=== PATIENT | female | born 1985 | race Caucasian/White ===

== ENCOUNTER → 2024-01-28 10:10 | Outpatient (REF) | payer OTHER, SELFPAY ==
[2024-01-28 11:26] LABS: Rubella Positive
[2024-01-28 11:49] LABS: Hepatitis B Surface Antibody Negative
[2024-01-30 15:24] LABS: Quantiferon Mitogen minus NIL 9.67 IU/mL; Quantiferon NIL 0.04 IU/mL; Quantiferon Plus TB2 minus NIL 0.01 IU/mL (0.00-0.34); Quantiferon TB Gold Plus Negative (Negative)
[2024-02-03 15:52] LABS: Mumps Virus IgG Positive; Rubeola (Measles) IgG Negative; Varicella Zoster IgG (VZV) Positive
== END ==
LOC: OHS 10:10
PROVIDERS: ATTENDING PHYSICIAN Nurse Practitioner Family
DX: Z23 Encounter for immunization (principal)
CPT/HCPCS: 36415; 86480; 86706; 86735; 86762; 86765; 86787

== ENCOUNTER 2024-06-30 11:41 | Observation (INO) | payer OTHER, SELFPAY ==
[2024-06-30] VITALS (12 sets, daily range): BP systolic 97–121; BP diastolic 45–85; BMI 23.4
--- NOTE | 2024-06-30 07:42 | ED.GENMED ---
History of Present Illness
<Genevieve Vera DO, Resident - Last Filed: 06/30/24 14:11>
General
Chief Complaint: Abdominal Pain
Source: patient
Exam Limitations: none
Time Seen by Provider: 06/30/24 07:24
History of Present Illness
History of Present Illness:
Ms. Rozina Tang is a 39 yo female w pmh HTN, pancreatitis, and GERD presenting with abdominal pain and vomiting. Has been vomiting since 06/25, unable to keep food or water down. Denies hematemesis. Abdominal pain is epigastric and central, a
sharp/stabbing 8/10 pain that radiates posteriorly to the back. Feels similar to pain from pancreatitis. Reports fever of 100.9 last night. +REDDY, +night sweats. -SOB, -cough, -chest pain, -palpitations, -constipation, -diarrhea.
Pt reports hiatal hernia on CT at another hospital, for a different type of pain.
Past History
<Gneevieve Vera DO, Resident - Last Filed: 06/30/24 14:11>
Past History
ED Past Medical History: GERD and Other (pancreatitis)
ED Past Surgical History: Gynecological and Other (back surgery, fissurectomyx2)
Patient has exhibited threatening behavior?: No
Review of Systems
<Genevieve Vera DO, Resident - Last Filed: 06/30/24 14:11>
Review of Systems
Allergies reviewed?: Yes
All Other Systems: ROS reviewed and negative except as documented in HPI and ROS
Skin: Denies rash
Psychiatric: Reports anxiety
Phy Exam
<Genevieve Vera DO, Resident - Last Filed: 06/30/24 14:11>
Physical Exam
Physical Exam:
.
General Physical Exam
General Presentation: moderate distress
General age: appears stated age
General Skin: warm and dry
General Habitus: normal
General Mental: alert
General Hydration: dry mucous membranes and poor skin turgor
Eye Exam
Eye Exam: conjunctiva normal
Cardiovascular Exam
Cardiovascular Exam: regular rate/rhythm, no edema, no gallop, no JVD and no murmur
Heart Sounds: normal
Pulmonary Exam
Pulmonary Exam: lungs clear, no rales, no rhonchi, no wheezing and no cough
Respiratory Effort: poor respiratory effort (limited by abdominal pain)
Oxygen Status: room air
Gastrointestinal Exam
Gastrointestinal Exam: no organomegaly, no cva tenderness, abnormal bowel sounds, guarding, no bruit and no masses
Auscultation of Abdomen: hypoactive
Neurological Exam
Neurological Exam: alert, oriented x3 and speech normal
Skin Exam
Skin Exam: normal color, warm/dry, no rash and no petechia
Psychiatric Exam
Psychiatric Exam: anxious
Course
<Genevieve Vera DO, Resident - Last Filed: 06/30/24 14:11>
Orders/Labs/Results
Orders:
Orders
06/30/24 07:19
C-Reactive Protein Urgent
Comment: ADD ON
CBC/With Diff [Complete Blood Count/With Diff] Urgent
CMP [Comprehensive Metabolic Panel] Urgent
HCG, Serum Qualitative Screen Urgent
Comment: HCG QUAL ADDED ON BY FLOOR 12:50PM 06-30-24
Lipase Urgent
Magnesium Urgent
Comment: ADD ON
Urinalysis Reflex To Culture Urgent
Date Specimen was Collected: 06/30/24
Time Specimen was Collected: 07:19
Urine Drug Abuse Screen Urgent
Date Specimen was Collected: 06/30/24
Time Specimen was Collected: 07:19
06/30/24 07:36
0.9% Sodium Chloride 1000 ml [Nss] 1,000 ml IV BOLUS
Metoclopramide [Reglan] 10 mg IV NOW STA
06/30/24 08:00
Morphine Sulfate 4 mg IV NOW STA
06/30/24 08:12
Diphenhydramine [Benadryl] 25 mg IV NOW STA
Diphenhydramine [Benadryl] 50 mg .ROUTE .STK-MED ONE
06/30/24 08:41
CT Abd/pelvis W Iv Cont Urgent
Comment:
Reason For Exam: general abd pain, vomiting
06/30/24 10:42
0.9% Sodium Chloride 1000 ml [Nss] 1,000 ml IV BOLUS
Metoclopramide [Reglan] 10 mg IV NOW STA
06/30/24 10:44
Fentanyl Citrate/Pf [Sublimaze] 50 mcg IV NOW STA
06/30/24 10:45
Pantoprazole [Protonix IV] 40 mg IV NOW STA
06/30/24 11:14
GASTROINTESTINAL CONSULT Routine
Consulting Provider: Johanny Caldwell
Was physician already notified: Yes
06/30/24 11:15
Add On- LAB Routine
Tests Added?: Mag level
Potassium Chloride [KCl] 40 meq 0.9% Sodium Chloride 250 ml [Nss] 250 ml IV NOW
06/30/24 11:24
Add On- LAB Routine
Tests Added?: CRP
06/30/24 11:30
Add On- LAB Urgent
Tests Added?: urine drug abuse screen
06/30/24 11:34
Admit/Transfer Patient As Directed
Co-Sign Provider:
Level of Care: Observation services
Assign to:: Telemetry
Physician / Group: Benji/hospitalist
Diagnosis: epigastric pain
Reason for Telemetry: Arrhythmia
Date to Stop Telemetry: 07/03/24
Time to Stop Telemetry: 11:00
Reason for Hospitalization: epigastric pain
PRN Pain Medication Management As Directed
May give lesser potent ordered pain med per pt: Yes
preference::
Protocol:: Medication orders for pain may be administered in a
manner that supports deferring to patient preference
when the pt is:
- Requesting an ordered lesser potent pain medication.
Least to most potent pain medications are defined
as: acetaminophen < NSAID < tramadol < opioids
(morphine, oxycodone, hydromorphone).
- Requesting a lesser dose of the same medication IF
ORDERED.
- Requesting a less intrusive route of administration
if both routes are prescribed by the provider (PO <
IV).
06/30/24 11:35
Code Status As Directed
Resuscitation Status: Full Code
07/03/24 11:00
DC Protocol for Telemetry ONCE
Abnormal Lab Results
06/30/24
07:19
Hct 35.9 L %
(37.0-47.0)
MPV 13.8 H fL
(7.4-10.4)
Lymphocytes % 19.9 L %
(20.5-51.1)
Potassium 3.2 L mmol/L
(3.5-5.1)
Chloride 96 L mmol/L
(98-107)
Carbon Dioxide 20 L mmol/L
(22-30)
Creatinine 0.5 L mg/dL
(0.6-1.0)
Urine Ketones 3+ A
(Negative)
U Marijuana (THC) Screen Positive H
(Negative)
06/30/24 07:19
06/30/24 07:19
Vital Signs
Initial and Last Documented VS:
Initial Vital Signs
Temp Pulse Resp BP Pulse Ox
100 F 108 16 110/73 98
06/30/24 06:48 06/30/24 06:48 06/30/24 06:48 06/30/24 06:48 06/30/24 06:48
Last Documented Vital Signs
Temp Pulse Resp BP Pulse Ox
100 F 86 16 113/75 94
06/30/24 06:48 06/30/24 11:45 06/30/24 06:48 06/30/24 12:00 06/30/24 12:15
<Jacob Brewster, DO - Last Filed: 06/30/24 08:14>
Orders/Labs/Results
Orders:
Orders
06/30/24 07:19
C-Reactive Protein Urgent
Comment: ADD ON
CBC/With Diff [Complete Blood Count/With Diff] Urgent
CMP [Comprehensive Metabolic Panel] Urgent
HCG, Serum Qualitative Screen Urgent
Comment: HCG QUAL ADDED ON BY FLOOR 12:50PM 06-30-24
Lipase Urgent
Magnesium Urgent
Comment: ADD ON
Urinalysis Reflex To Culture Urgent
Date Specimen was Collected: 06/30/24
Time Specimen was Collected: 07:19
Urine Drug Abuse Screen Urgent
Date Specimen was Collected: 06/30/24
Time Specimen was Collected: 07:19
06/30/24 07:36
0.9% Sodium Chloride 1000 ml [Nss] 1,000 ml IV BOLUS
Metoclopramide [Reglan] 10 mg IV NOW STA
06/30/24 08:00
Morphine Sulfate 4 mg IV NOW STA
06/30/24 08:12
Diphenhydramine [Benadryl] 25 mg IV NOW STA
Diphenhydramine [Benadryl] 50 mg .ROUTE .STK-MED ONE
06/30/24 08:41
CT Abd/pelvis W Iv Cont Urgent
Comment:
Reason For Exam: general abd pain, vomiting
06/30/24 10:42
0.9% Sodium Chloride 1000 ml [Nss] 1,000 ml IV BOLUS
Metoclopramide [Reglan] 10 mg IV NOW STA
06/30/24 10:44
Fentanyl Citrate/Pf [Sublimaze] 50 mcg IV NOW STA
06/30/24 10:45
Pantoprazole [Protonix IV] 40 mg IV NOW STA
06/30/24 11:14
GASTROINTESTINAL CONSULT Routine
Consulting Provider: Johanny Caldwell
Was physician already notified: Yes
06/30/24 11:15
Add On- LAB Routine
Tests Added?: Mag level
Potassium Chloride [KCl] 40 meq 0.9% Sodium Chloride 250 ml [Nss] 250 ml IV NOW
06/30/24 11:24
Add On- LAB Routine
Tests Added?: CRP
06/30/24 11:30
Add On- LAB Urgent
Tests Added?: urine drug abuse screen
06/30/24 11:34
Admit/Transfer Patient As Directed
Co-Sign Provider:
Level of Care: Observation services
Assign to:: Telemetry
Physician / Group: Benji/hospitalist
Diagnosis: epigastric pain
Reason for Telemetry: Arrhythmia
Date to Stop Telemetry: 07/03/24
Time to Stop Telemetry: 11:00
Reason for Hospitalization: epigastric pain
PRN Pain Medication Management As Directed
May give lesser potent ordered pain med per pt: Yes
preference::
Protocol:: Medication orders for pain may be administered in a
manner that supports deferring to patient preference
when the pt is:
- Requesting an ordered lesser potent pain medication.
Least to most potent pain medications are defined
as: acetaminophen < NSAID < tramadol < opioids
(morphine, oxycodone, hydromorphone).
- Requesting a lesser dose of the same medication IF
ORDERED.
- Requesting a less intrusive route of administration
if both routes are prescribed by the provider (PO <
IV).
06/30/24 11:35
Code Status As Directed
Resuscitation Status: Full Code
07/03/24 11:00
DC Protocol for Telemetry ONCE
Abnormal Lab Results
06/30/24
07:19
Hct 35.9 L %
(37.0-47.0)
MPV 13.8 H fL
(7.4-10.4)
Lymphocytes % 19.9 L %
(20.5-51.1)
Potassium 3.2 L mmol/L
(3.5-5.1)
Chloride 96 L mmol/L
(98-107)
Carbon Dioxide 20 L mmol/L
(22-30)
Creatinine 0.5 L mg/dL
(0.6-1.0)
Urine Ketones 3+ A
(Negative)
U Marijuana (THC) Screen Positive H
(Negative)
06/30/24 07:19
06/30/24 07:19
Vital Signs
Initial and Last Documented VS:
Initial Vital Signs
Temp Pulse Resp BP Pulse Ox
100 F 108 16 110/73 98
06/30/24 06:48 06/30/24 06:48 06/30/24 06:48 06/30/24 06:48 06/30/24 06:48
Last Documented Vital Signs
Temp Pulse Resp BP Pulse Ox
100 F 86 16 113/75 94
06/30/24 06:48 06/30/24 11:45 06/30/24 06:48 06/30/24 12:00 06/30/24 12:15
<Genevieve Vera DO, Resident - Last Filed: 06/30/24 14:11>
MDM/Problems Addressed
Differential Diagnosis Includes:
acute pancreatitis, cholecystitis, hepatitis A
MDM/Problems Addressed:
Acute pancreatitis unlikely due to normal lipase (37 U/L) and no acute pathologies on CT abdomen.
Cholecystitis unlikely due to no jaundice and no acute pathologies on CT abdomen.
Hepatitis A unlikely due to normal WBC (5.9x10^3 uL) and no diarrhea.
Chronic conditions affecting care: Previous abdomnial surgery (hysterectomy) and Psychiatric illness
Acute Exacerbation and/or Progression of Chronic Illness: Previous abdomnial surgery and Psychiatric illness
<Genevieve Vera DO, Resident - Last Filed: 06/30/24 14:11>
*Radiology
Radiology exam reviewed: preliminary read by ED provider and radiology read reviewed
*Pulse Oximetry
Patient hypoxic: no
*Critical Care Note
Total Time (30-74mins, 75-104mins- exclusive of procedures): Not Applicable
ED Attending Note
<Genevieve Vera DO, Resident - Last Filed: 06/30/24 14:11>
-
Portions of this chart may have been created with voice recognition software.� Occasional wrong word or��sound alike� substitutions may have occurred due to the inherent limitations of voice recognition software.
<Jacob Brewster DO - Last Filed: 06/30/24 08:14>
ED Attending Note
Patient seen and examined by attending physician: Yes
I performed a history and physical exam of patient and discussed management with resident, I reviewed resident's note and agree with documented findings and plan of care.: Yes
ED Attending Note:
I have seen and evaluated the patient with a [id number] encounter. I have spoken to the resident and involved in the medical history, the physical exam, medical decision making.
Evaluation and management service: agree unless noted differently below.
Results interpretation: agree unless noted differently below.
Focused HPI: 39-year-old female presenting with uncontrolled nausea and vomiting. This is associated with upper abdominal pain. Patient states she has had pain like this before and had a CT at an outside hospital. Patient states it was consistent
with a hiatal hernia. However, her pain today is different. She believes it could be related to pancreatitis
Physical exam: Uncomfortable, nausea, dry heaving, epigastric tenderness without rebound. Dry mucous membranes
Medical Decision Making: Given her ongoing issues, will give fluids, Reglan and morphine. Will obtain basic blood work looking for evidence of metabolic abnormalities and possibly pancreatitis. If blood work does not confirm pancreatitis, will
obtain imaging
Discharge Plan
Departure
Patient Disposition: Admit
Date of Disposition: 06/30/24
Time of Disposition: 11:12
Presentation/result/management discussed w/ accepting MD/DO: Hospitalist
Patient with high blood pressure during this ER visit?: No
Condition: Fair
Discharge Problem:
Esophagitis with gastritis, Gastroenteritis, Vomiting
Interventions
Interventions:
*Risk Screen - Suicide Last Done: 06/30/24 06:48
*General Assessment Last Done: 06/30/24 06:48
*Neglect/Abuse Screening Last Done: 06/30/24 06:48
IW-Jjkfvw-Liuvnjfmiy Assessment Last Done: 06/30/24 08:28
[2024-06-30] MEDS: NSS 1000 IV ×3 (08:15→16:56)
[2024-06-30] MEDS: MORPHINE SULFATE 4 MG IV (08:16)
[2024-06-30] MEDS: REGLAN 10 MG IV ×2 (08:17→10:59)
[2024-06-30] MEDS: BENADRYL 25 MG IV (08:18)
[2024-06-30 08:28] LABS: Urine Albumin Trace (Neg - Trace); Urine Bilirubin Negative (Negative); Urine Character Clear (Clear); Urine Color Yellow; Urine Glucose Negative (Negative); Urine Ketone 3+ (Negative); Urine Leukocyte Negative (Negative); Urine Nitrite Negative (Negative); Urine Occult Blood Negative (Negative); Urine Urobilinogen Negative (Neg - 1+)
[2024-06-30 08:35] LABS: % Basophils 0.9 % (0-2); % Eosinophils 0.2 % (0-6); % Immature Granulocytes 0.3 % (0-0.5); % Lymphocytes 19.9 % (20.5-51.1); % Monocytes 6.1 % (1.7-9.3); % Neutrophils 72.6 % (42.2-75.2); Absolute Basophils 0.1 10^3/uL (0-0.2); Absolute Lymphocytes 1.2 10^3/uL (1.2-3.4); Absolute Monocytes 0.4 10^3/uL (0.1-0.6); Absolute Neutrophils 4.3 10^3/uL (1.4-6.5); Hematocrit 35.9 % (37.0-47.0); Hemoglobin 12.9 g/dL (12.0-16.0); Mean Corp Hgb Conc. 35.9 g/dL (33.0-37.0); Mean Corpuscular Hgb 30.1 pg (27.0-31.0); Mean Corpuscular Volume 83.9 fL (81.0-99.0); Mean Platelet Volume 13.8 fL (7.4-10.4); Nucleated Red Blood Cells % 0 %; Platelet Count 257 10^3/uL (130-400); Red Blood Cell Count 4.28 10^6/uL (4.20-5.40); Red Cell Dist. Width 13.4 % (11.5-14.5); White Blood Cell Count 5.9 10^3/uL (4.8-10.8)
[2024-06-30 08:37] LABS: ALT (SGPT) 13 U/L (0-35); AST (SGOT) 21 U/L (14-36); Albumin 4.3 g/dl (3.5-5.0); Alkaline Phosphatase 58 U/L (38-126); Blood Urea Nitrogen 11 mg/dl (7-17); Calcium 9.2 mg/dl (8.4-10.2); Carbon Dioxide 20 mmol/L (22-30); Chloride 96 mmol/L (98-107); Glucose 82 mg/dl (70-99); Lipase 37 U/L (23-300); Potassium 3.2 mmol/L (3.5-5.1); Sodium 137 mmol/L (135-145); Total Bilirubin 0.7 mg/dl (0.2-1.3); Total Protein 6.6 g/dl (6.3-8.2); eGFR > 60.00
[2024-06-30] MEDS: SUBLIMAZE 50 MCG IV (10:59)
[2024-06-30] MEDS: PROTONIX IV 40 MG IV ×2 (10:59→20:01)
--- NOTE | 2024-06-30 11:15 | HPS.HSE ---
Family Physician
-
Family Physician: * NONE
Chief Complaint
-
epigastric abd pain
History of Present Illness
HPI: 39 yo female with PMH HTN, pancreatitis, GERD, Anxiety/depression; p/w epigastric abdominal pain and vomiting since 06/25.
She is unable to keep food or water down. Abdominal pain is epigastric/central, sharp/stabbing and radiates posteriorly to the back. She states it felt similar to previous pancreatitis.
Reported fever of 100.9 the night prior.
Denies to other symptoms.
Medical History
Past Medical History
Past Medical History: Reports Other (GERD, pancreatitis, anxiety/depression, back pain)
Past Surgical History: Reports Other
Additional Past Surgical History:
back surgery
Social History
Tobacco: Smoker (1-2 cigarettes a day)
Alcohol: None
Drug: None
Personal: Partner
Family History
Family History: Not pertinent
Allergies / Home Medications
Allergies reflects when Allergies were last updated in [facility].
Home Medications with original date entered in [facility]
Allergy/Medication List:
Medications on admission are unable to be verified or confirmed at this time.
Review of Systems
-
Abdomen/GI: Reports See HPI, Abdominal Pain, Nausea and Vomiting
Physical Exam
Vital Signs
Vital Signs
Temp Pulse Resp BP Pulse Ox
37.7 C 108 16 110/73 98
06/30/24 06:48 06/30/24 06:48 06/30/24 06:48 06/30/24 06:48 06/30/24 06:48
Physical Exam
General: Well Developed, Well Nourished, No Apparent Distress and Conversant
HEENT: NormoCephalic, Moist mucous membranes and Atraumatic
Respiratory: Clear and Non Labored Respirations; No Accessory Resp Muscle Use
Cardiac: S1/S2 and Regular Rhythm; No Murmur or Rub
GI: Soft, Non Distended, Normal Bowel Sounds and Tender (epigastrium)
Rectal: Deferred by Provider
Musculoskeletal: No Clubbing, No Cyanosis and No Edema
Skin: No Rash
Neuro: Awake and Alert
Psych: Calm and Intact Judgment/Insight
Laboratory Results
-
06/30/24 07:19
06/30/24 07:19
Laboratory Results
Total Bilirubin 0.7 mg/dl (0.2-1.3) 06/30/24 07:19
AST 21 U/L (14-36) 06/30/24 07:19
ALT 13 U/L (0-35) 06/30/24 07:19
Alkaline Phosphatase 58 U/L (38-126) 06/30/24 07:19
Lipase 37 U/L (23-300) 06/30/24 07:19
Data Reviewed
-
CT Scan: Report Reviewed by me
Lab Data: Labs Reviewed by me
Impression/Plan
-
HPI: 39 yo female with PMH HTN, pancreatitis, GERD, Anxiety/depression; p/w epigastric abdominal pain and vomiting since 06/25.
She is unable to keep food or water down. Abdominal pain is epigastric/central, sharp/stabbing and radiates posteriorly to the back. She states it felt similar to previous pancreatitis.
Reported fever of 100.9 the night prior.
Denies to other symptoms.
CT AP:
Acute gastroenteritis. No focal fluid collection or free air.
Acute esophagitis from vomiting.
Punctate 1 mm nonobstructing calculus in the lower pole of the left kidney. No hydronephrosis.
A/P:
# Epigastric abdominal pain
CT noted Acute esophagitis from vomiting.
substitute [employer] PO PPI to IV BID
Check UDS
Check CRP
GI CS
# Hypokalemia
replete IV
# GERD
PPI as above
# Anxiety and depression
Continue [employer] fluoxetine, Depakote
# ADHD
# Chronic pain
# Smoker-1 to 2 cigarettes a day-cessation counseling
Full code
DVT prophylaxis- Lovenox
--- NOTE | 2024-06-30 11:45 | CON.GI ---
Addendum entered and electronically signed by Johanny Caldwell DO 06/30/24 13:28:
I saw and examined the patient.
The FISH GRADER or PA's note was reviewed and I agree with the note.
Comment:
Rozina is a 39 y.o. female w/ pmhx pancreatitis, HTN, GERD, anxiety/depression, history of etoh abuse admitted with intractable nausea/vomiting x5 days, unable to tolerate PO. Reports she has been sober for the last year. She states she recently
prolonged hospitalization at [facility] for pancreatitis, she reports there was no clear etiology. She also reports some abnormal finding with the appendix recommended for surgery, however, has attempted to call surgery at [place] for
follow-up and has not heard back from them. CT scan shows that the appendix appears normal. There is mild wall thickening and hyperenhancement of the stomach in addition to numerous fluid filled small bowel loops with mild wall thickening,
consistent with acute gastroenteritis. Acute esophagitis, likely secondary to persistent retching.
Recommendations:
-IVF
-r/o norovirus if develops diarrhea
-standing zofran
-check bhcg
-f/u UDS
-check EtoH level
-ADAT
-obtain records from [facility]
-if no improvement, obtain abdominal xray in AM
Management of gastroenteritis is supportive care. GI will sign off, please call with questions.
Original Note:
Consultation
-
Date/Time Consultation Requested: 06/30/24 1115
Date/Time Consultation Performed: 06/30/24 1145
Requesting Provider: Karen Leblanc MD
Performing Provider: YUE Fuentes
Reason for Consultation: esophagitis/nausea/vomiting
Medical History
Chief Complaint / HPI
Chief Complaint: abdominal pain, vomiting
History of Present Illness:
Pt is a 39yo with hx GERD, HTN, prior pancreatitis with hx heavy ETOH use, back surgery, fissurectomy x2 with admission with upper abdominal pain and vomiting. On admission noted with hypotension with K 3.2, with normal LFT's and lipase. Ct
notable for acute gastroenteritis no focal fluid collection or free air and acute esophagitis from vomiting, 1 mm calculus in renal stone.
In reviewing with patient she admits to hx symptoms for several weeks. About 1 month ago she was hospitalized at [facility] for pancreatitis. She states etiology was unclear. Last ETOH heavy 1 year ago. Did not recall gallstones but there
was concern for appendix issue and was due for follow up for surgery for appe but has not scheduled. She currently admits to GERD with vomiting and upper abdominal pain but denies hematemesis, diarhea, constipation, or rectal bleeding. Hx prior
EGD years ago for GERD and colonoscopy for rectal bleeding that pt recalls as normal. She denies NSAID use but does admits to occasional Marijuana use last 2 weeks ago.
Past Medical History
Past Medical History: GERD, HTN, Psychiatric (anxiety/depression) and Other (pancreatitis)
Past Surgical History: Other (back surgery, fissurectomy x2 )
Social History
Tobacco: Smoker
Alcohol: Former
Drug: Marijuana (occasional use )
Living: Alone
Employment: Employed
Family History
Family History: Other (no family hx colon CA or polyps, no family hx GI issues )
Allergies / Home Medications
Allergy/AdvReac Type Severity Reaction Status Date / Time
latex Allergy Rash Verified 06/30/24 06:47
ondansetron [From Zofran] Allergy Unknown Verified 06/30/24 07:43
tramadol Allergy Unknown Verified 06/30/24 06:47
�Medication �Instructions �Recorded
divalproex 500 mg tablet,extended 500 mg PO BID Neurological 08/03/23
release 24 hr (Depakote ER) Condition
fluoxetine 40 mg capsule 40 mg PO DAILY Mental 08/03/23
Health/Anxiety
melatonin 10 mg tablet 10 mg PO HSPRN PRN insomnia 08/03/23
pantoprazole 40 mg tablet,delayed 40 mg PO DAILY heartburn 08/03/23
release
methylphenidate HCl 10 mg tablet 10 mg PO DAILY@1500 06/30/24
methylphenidate HCl 54 mg 54 mg PO DAILY 06/30/24
tablet,extended release 24 hr
olanzapine 5 mg tablet 5 mg PO DAILYPRN PRN anxiety 06/30/24
Review of Systems
-
Unable to obtain full review of systems at this time due to: Other (some drifting off in conversation)
History Source: Patient
Constitutional: Reports Fever
EENT: Reports No Symptoms
Respiratory: Reports No Symptoms
Cardiac: Reports No Symptoms
Abdomen/GI: Reports Abdominal Pain, Nausea and Vomiting
: Reports No Symptoms
Musculoskeletal: Reports No Symptoms
Skin: Reports No Symptoms
Neurological: Reports Weakness
Endocrine: Reports No Symptoms
Hematologic/Lymphatic: Reports No Symptoms
Vital Signs
Temp Pulse Resp BP Pulse Ox
100 F 108 16 110/73 98
06/30/24 06:48 06/30/24 06:48 06/30/24 06:48 06/30/24 06:48 06/30/24 06:48
Physical Exam
Exam
General: Well Developed, Well Nourished and No Apparent Distress
HEENT: Normocephalic and Anicteric
Respiratory: Clear
Cardiac: Regular Rhythm
GI: Soft, Tender (diffuse upper tenderness ) and Distended (limited exam as pt lying on side with symptoms )
Genito-urinary: No Costovertebral Tender
Musculoskeletal: No Clubbing and No Cyanosis
Skin: Warm and Dry
Neuro: Awake, Alert and AO x 3
Psych: Calm
Results
WBC 5.9 10^3/uL (4.8-10.8) 06/30/24 07:19
Hgb 12.9 g/dL (12.0-16.0) 06/30/24 07:19
Hct 35.9 % (37.0-47.0) L 06/30/24 07:19
MCV 83.9 fL (81.0-99.0) 06/30/24 07:19
Plt Count 257 10^3/uL (130-400) 06/30/24 07:19
Absolute Neuts (auto) 4.3 10^3/uL (1.4-6.5) 06/30/24 07:19
Sodium 137 mmol/L (135-145) 06/30/24 07:19
Potassium 3.2 mmol/L (3.5-5.1) L 06/30/24 07:19
Chloride 96 mmol/L (98-107) L 06/30/24 07:19
Carbon Dioxide 20 mmol/L (22-30) L 06/30/24 07:19
BUN 11 mg/dl (7-17) 06/30/24 07:19
Creatinine 0.5 mg/dL (0.6-1.0) L 06/30/24 07:19
Calcium 9.2 mg/dl (8.4-10.2) 06/30/24 07:19
Total Bilirubin 0.7 mg/dl (0.2-1.3) 06/30/24 07:19
AST 21 U/L (14-36) 06/30/24 07:19
ALT 13 U/L (0-35) 06/30/24 07:19
Alkaline Phosphatase 58 U/L (38-126) 06/30/24 07:19
Lipase 37 U/L (23-300) 06/30/24 07:19
Diagnostic Image Results:
Prior GI Procedures:
EGD: in past for GERD
Colonoscopy: in past for bleed recall normal
Assessment / Plan
-
Pt is a 39yo with hx GERD, HTN, prior pancreatitis with hx heavy ETOH use, back surgery, fissurectomy x2 with admission with upper abdominal pain and vomiting. On admission noted with hypotension with K 3.2, with normal LFT's and lipase. Ct
notable for acute gastroenteritis no focal fluid collection or free air and acute esophagitis from vomiting, 1 mm calculus in renal stone. In reviewing with patient she admits to hx symptoms for several weeks. About 1 month ago she was
hospitalized at [place] for pancreatitis. She states etiology was unclear. Last ETOH heavy 1 year ago.
-nausea/vomiting with concern for gastroenteritis
-acute esophagitis on imaging
-hypokalemia
-recent [place] admission with pancreatitis and abnormal appendix on imaging
other medical problems:
-hx pancreatitis
-prior heavy ETOH use
-hx back surgery
-fissurectomy
PLAN:
etiology of gastroenteritis related to acute viral illness vs ileus with hx recent pancreatitis vs other-- less likely Cannibis induced with last use 2 weeks ago
cont supportive care
will obtain [facility] records with ? 'appendix issues'
antiemetics/pain control
IVF
if not improving repeat abd X ray in AM
if diarrhea develops check stools studies and norovirus
-
-
Thank you for consultation and allowing me to participate in the patient's care. Please call the special education director GI physician during the after hours with any questions or concerns.
--- NOTE | 2024-06-30 11:51 | PHANOTE ---
med rec note- patient stated she moved here from [place] and was getting her medication through a md there. unable to confirm her controlled medications with ecw, pharmacy or ecw. patient also stated to the pharmacist her ritalin ER 36mg in AM and
10mg IR at 3pm but told me her am dose was 54mg.
--- NOTE | 2024-06-30 11:57 | PHANOTE ---
Met with patient to verify methylphenidate doses/frequency as it could not be verified through a pharmacy fill or the PDMP. Patient stated that she recently moved from [place] and continues to fill her methylphenidate from her [place] physician at
a [facility]. Patient stated that she has an appointment with a PA provider in October to initiate care.
[2024-06-30 12:01] LABS: Amphetamines Negative (Negative); Barbiturates Negative (Negative); Benzodiazepines Negative (Negative); Buprenorphine Negative (Negative); Cocaine Negative (Negative); Marijuana Positive (Negative); Methadone Negative (Negative); Methamphetamines Negative (Negative); Opiates Negative (Negative); Phencyclidine Negative (Negative); Tricyclic Antidepressants Negative (Negative)
[2024-06-30 12:02] LABS: C-Reactive Protein < 5.00 mg/L (0.0-10.00)
[2024-06-30 12:13] LABS: Magnesium 1.7 mg/dl (1.6-2.3)
[2024-06-30] MEDS: KCL 270 MEQ IV (12:38)
[2024-06-30 13:11] LABS: Alcohol None Detected
[2024-06-30 14:16] LABS: HCG, Serum Qualitative Screen Negative
[2024-06-30] MEDS: TIGAN 200 MG IM (18:26)
[2024-06-30] MEDS: MORPHINE SULFATE 2 MG IV ×2 (18:30→22:54)
--- NOTE | 2024-06-30 19:23 | PTCARENOTE ---
Received patient AAOX3 from ED. Pt oriented to room. Pt NPO. IVF started. Made patient comfortable. Cont to assess patient status.
[2024-06-30] MEDS: LOVENOX 40 MG SC (20:00)
[2024-06-30] MEDS: NSS (PRESERVATIVE FREE) 10 ML IV (20:01)
[2024-06-30] MEDS: DEPAKOTE ER (24 HR RELEASE) 500 MG PO (20:03)
[2024-07-01] MEDS: NSS 1000 IV ×3 (01:23→20:04)
[2024-07-01 03:26] VITALS: BP 100/67
[2024-07-01] MEDS: MORPHINE SULFATE 2 MG IV ×4 (04:12→18:24)
[2024-07-01 05:57] LABS: Hematocrit 33.5 % (37.0-47.0); Hemoglobin 11.7 g/dL (12.0-16.0); Mean Corp Hgb Conc. 34.9 g/dL (33.0-37.0); Mean Corpuscular Hgb 29.9 pg (27.0-31.0); Mean Corpuscular Volume 85.7 fL (81.0-99.0); Mean Platelet Volume 13.5 fL (7.4-10.4); Platelet Count 177 10^3/uL (130-400); Red Blood Cell Count 3.91 10^6/uL (4.20-5.40); Red Cell Dist. Width 13.9 % (11.5-14.5); White Blood Cell Count 4.7 10^3/uL (4.8-10.8)
[2024-07-01 05:59] LABS: Blood Urea Nitrogen 5 mg/dl (7-17); Calcium 8.6 mg/dl (8.4-10.2); Carbon Dioxide 17 mmol/L (22-30); Chloride 106 mmol/L (98-107); Estimated Creatinine Clearance 124 ml/min; Glucose 58 mg/dl (70-99); Magnesium 1.8 mg/dl (1.6-2.3); Potassium 3.4 mmol/L (3.5-5.1); Sodium 141 mmol/L (135-145); eGFR > 60.00
[2024-07-01 08:14] VITALS: BP 117/68
[2024-07-01] MEDS: TIGAN 200 MG IM (08:24)
[2024-07-01] MEDS: KCL 270 MEQ IV (08:28)
[2024-07-01] MEDS: DEPAKOTE ER (24 HR RELEASE) 500 MG PO ×2 (08:29→20:04)
[2024-07-01] MEDS: NSS (PRESERVATIVE FREE) 10 ML IV ×2 (08:29→20:05)
[2024-07-01] MEDS: PROZAC 40 MG PO (08:29)
[2024-07-01] MEDS: PROTONIX IV 40 MG IV ×2 (08:29→20:05)
--- NOTE | 2024-07-01 08:30 | W.PN.HOSP.TC ---
Today's Communication/Plan
-
see A/P
Assessment / Plan
Assessment / Plan
HPI: 39 yo female with PMH HTN, pancreatitis, GERD, Anxiety/depression; p/w epigastric abdominal pain and vomiting since 06/25.
She is unable to keep food or water down. Abdominal pain is epigastric/central, sharp/stabbing and radiates posteriorly to the back. She states it felt similar to previous pancreatitis.
Reported fever of 100.9 the night prior.
Denies to other symptoms.
CT AP:
Acute gastroenteritis. No focal fluid collection or free air.
Acute esophagitis from vomiting.
Punctate 1 mm nonobstructing calculus in the lower pole of the left kidney. No hydronephrosis.
A/P:
# Epigastric abdominal pain
CT noted Acute gastroenteritis, and Acute esophagitis from vomiting.
substitute [employer] PO PPI to IV BID
UDS positive for marijuana, alcohol level negative
CRP negative which r/o acute infectious/inflammatory causes
pain control with IV morphine, Tylenol
Cont NPO with IVF
Maalox PRN per pt request
appreciate GI input
# Hypokalemia
replete IV
# GERD
PPI as above
# Anxiety and depression
Continue [employer] fluoxetine, Depakote
# ADHD
# Chronic pain
# Smoker-1 to 2 cigarettes a day-cessation counseling
Full code
DVT prophylaxis- Lovenox
Anticipated Discharge: 24 - 48 hours
Subjective/Interval History
-
Date of Service: July 01, 2024
Objective Data
-
Labs:
Laboratory Results
07/01/24
04:36
WBC 4.7 L
Hgb 11.7 L
Hct 33.5 L
Plt Count 177 D
Sodium 141
Potassium 3.4 L
Chloride 106
Carbon Dioxide 17 L
BUN 5 L
Creatinine 0.5 L
Glucose 58 L
Calcium 8.6
Vital Signs:
Vital Signs
Temp Pulse Resp BP Pulse Ox
36.7 C 80 18 117/68 96
07/01/24 08:14 07/01/24 08:14 07/01/24 08:14 07/01/24 08:14 07/01/24 08:14
I&O
06/30/24 07/01/24 07/02/24
06:59 06:59 06:59
Intake Total 1200 / 1200
Balance 1200 / 1200
Review of Systems
-
Abdomen/GI: Reports Abdominal Pain (epigastrium)
Physical Exam
-
General: Well Developed, Well Nourished, No Apparent Distress, Comfortable and Conversant; Negative Respiratory Distress
HEENT: Normocephalic, Atraumatic, Nose Appears Normal and Ears Appear Normal; Negative Oxygen
Respiratory: Clear to Auscultation and Non Labored Respirations; Negative Accessory Resp Muscle Use
Cardiac: Regular Rhythm and S1/S2
GI: Soft, Nondistended and Tender (epigastrium)
Skin: Warm and Dry
Neuro: Awake, Alert, Oriented, AO x 3 and Nonfocal/Grossly Intact
Psych: Calm and Intact Judgement/Insight
Data Reviewed
-
CT Scan: Report Reviewed by me
Labs: Labs Reviewed by me
[2024-07-01 12:02] VITALS: BP 101/67
[2024-07-01] MEDS: MAALOX 30 ML PO ×2 (14:04→20:05)
[2024-07-01 15:00] VITALS: BP 95/49
[2024-07-01] MEDS: LOVENOX 40 MG SC (17:01)
[2024-07-01 19:24] VITALS: BP 111/70
[2024-07-01] MEDS: ZYPREXA 5 MG PO (20:46)
[2024-07-01 23:49] VITALS: BP 101/64
[2024-07-02] MEDS: MORPHINE SULFATE 2 MG IV ×2 (00:16→08:11)
[2024-07-02 03:11] VITALS: BP 93/54
[2024-07-02] MEDS: TIGAN 200 MG IM (05:06)
[2024-07-02] MEDS: MAALOX 30 ML PO (05:09)
[2024-07-02] MEDS: CARAFATE 1 GRAM PO (05:25)
[2024-07-02] MEDS: NSS 1000 IV (05:26)
[2024-07-02 07:05] LABS: Hematocrit 32.6 % (37.0-47.0); Hemoglobin 11.2 g/dL (12.0-16.0); Mean Corp Hgb Conc. 34.4 g/dL (33.0-37.0); Mean Corpuscular Hgb 29.7 pg (27.0-31.0); Mean Corpuscular Volume 86.5 fL (81.0-99.0); Mean Platelet Volume 13.5 fL (7.4-10.4); Platelet Count 157 10^3/uL (130-400); Red Blood Cell Count 3.77 10^6/uL (4.20-5.40); White Blood Cell Count 3.8 10^3/uL (4.8-10.8)
[2024-07-02 07:26] LABS: Blood Urea Nitrogen < 2 mg/dl (7-17); Calcium 8.8 mg/dl (8.4-10.2); Carbon Dioxide 16 mmol/L (22-30); Chloride 108 mmol/L (98-107); Estimated Creatinine Clearance 124 ml/min; Glucose 62 mg/dl (70-99); Magnesium 1.7 mg/dl (1.6-2.3); Potassium 3.9 mmol/L (3.5-5.1); Sodium 140 mmol/L (135-145); eGFR > 60.00
[2024-07-02] MEDS: MAGNESIUM SULFATE 100 IV (07:47)
[2024-07-02] MEDS: DEPAKOTE ER (24 HR RELEASE) 500 MG PO (07:48)
[2024-07-02] MEDS: PROZAC 40 MG PO (07:48)
[2024-07-02 08:02] VITALS: BP 134/87
[2024-07-02] MEDS: NSS (PRESERVATIVE FREE) 10 ML IV (08:24)
[2024-07-02] MEDS: PROTONIX IV 40 MG IV (08:24)
--- NOTE | 2024-07-02 08:36 | W.PN.HOSP.TC ---
Addendum entered and electronically signed by Karen Leblanc MD 07/02/24 12:24:
Patient left AMA.
Discussed risk of AMA with patient.
Total DC time 40 minutes
Original Note:
Today's Communication/Plan
-
see A/P
Assessment / Plan
Assessment / Plan
HPI: 39 yo female with PMH HTN, pancreatitis, GERD, Anxiety/depression; p/w epigastric abdominal pain and vomiting since 06/25.
She is unable to keep food or water down. Abdominal pain is epigastric/central, sharp/stabbing and radiates posteriorly to the back. She states it felt similar to previous pancreatitis.
Reported fever of 100.9 the night prior.
Denies to other symptoms.
CT AP:
Acute gastroenteritis. No focal fluid collection or free air.
Acute esophagitis from vomiting.
Punctate 1 mm nonobstructing calculus in the lower pole of the left kidney. No hydronephrosis.
A/P:
# Epigastric abdominal pain
CT noted Acute gastroenteritis, and Acute esophagitis from vomiting.
substitute [employer] PO PPI to IV BID
UDS positive for marijuana, alcohol level negative
CRP negative which r/o acute infectious/inflammatory causes
pain control with IV morphine, Tylenol
trial of clears
trial of lidocaine cream to apply over anterior abdomen (in case symptom from cyclic vomiting from marijuana use)
Maalox PRN per pt request
appreciate GI input
# Hypokalemia
repleted IV
# GERD
PPI as above
# Anxiety and depression
Continue [employer] fluoxetine, Depakote
# ADHD
# Chronic pain
# Smoker-1 to 2 cigarettes a day-cessation counseling
Full code
DVT prophylaxis- Lovenox
DW RN
Anticipated Discharge: Within 24 hours
Subjective/Interval History
-
Date of Service: July 02, 2024
Objective Data
-
Labs:
Laboratory Results
07/02/24
06:06
WBC 3.8 L
Hgb 11.2 L
Hct 32.6 L
Plt Count 157
Sodium 140
Potassium 3.9
Chloride 108 H
Carbon Dioxide 16 L
BUN < 2 L
Creatinine 0.5 L
Glucose 62 L
Calcium 8.8
Vital Signs:
Vital Signs
Temp Pulse Resp BP Pulse Ox
36.7 C 95 16 134/87 100
07/02/24 08:02 07/02/24 08:02 07/02/24 08:02 07/02/24 08:02 07/02/24 08:02
I&O
07/01/24 07/02/24 07/03/24
06:59 06:59 06:59
Intake Total 1200 / 1200 3150 / 3150
Balance 1200 / 1200 3150 / 3150
Review of Systems
-
Abdomen/GI: Reports Abdominal Pain (epigastrium)
Physical Exam
-
General: Well Developed, Well Nourished, No Apparent Distress, Comfortable and Conversant; Negative Respiratory Distress
HEENT: Normocephalic, Atraumatic, Nose Appears Normal and Ears Appear Normal; Negative Oxygen
Respiratory: Clear to Auscultation and Non Labored Respirations; Negative Accessory Resp Muscle Use
Cardiac: Regular Rhythm and S1/S2
GI: Soft, Nondistended and Tender (epigastrium)
Skin: Warm and Dry
Neuro: Awake, Alert, Oriented, AO x 3 and Nonfocal/Grossly Intact
Psych: Calm and Intact Judgement/Insight
Data Reviewed
-
CT Scan: Report Reviewed by me
Labs: Labs Reviewed by me
[2024-07-02] MEDS: LMX 4 1 APPLIC TOPICAL (10:41)
--- NOTE | 2024-07-02 11:10 | CM ---
Addendum entered by Lisbeth Ortez 07/02/24 11:26:
PCP list provided to patient and OBS form provided, patient to review and complete, nursing aware.
Original Note:
Patient seen in hallway at her request. Patient for AMA per nursing and patient confirmed, due to her employer/ scheduling. Patient states that she lives with her landlord in a 2 story home but most of the home is on the first floor. Patient with no
DME. Patient with no interest in alcohol treatment resources, patient with no interest in advance directive information. Patient plan is for discharge home with friends to transport. Patient uses the [facility] in [place] and she would like to have a
list of PCP options as she recently moved here. CM will continue to follow for discharge planning needs.
Plan; AMA
[2024-07-02 11:11] VITALS: BP 107/64
--- NOTE | 2024-07-02 12:06 | W.DCSUMMARY ---
Discharge Summary
Discharge Data
Date of Admission: 06/30/24
Date of Discharge: 07/02/24
-
Pending Results: No
Hospital Course
Principal Diagnosis:
Epigastric abdominal pain, possibly due to acute gastroenteritis versus acute esophagitis from vomiting, versus cyclic vomiting disorder from marijuana use.
Chronic Diagnoses:�
GERD
Anxiety and depression, on fluoxetine, Depakote
ADHD
Chronic pain
Smoker-1 to 2 cigarettes a day-cessation counseling
Consultations:�
Gastroenterology
Procedures:�
None
Clinical course:�
This is a 39 yo female with past medical history as stated above, who presented with epigastric abdominal pain and inability to tolerate food or water.
Problem 1:
Epigastric abdominal pain.
The patient's CT abdomen pelvis noted acute gastroenteritis, and Acute esophagitis from vomiting.
Her UDS was positive for marijuana.
Her CRP was negative which ruled out acute infectious/inflammatory process.
She was treated symptomatically with IV morphine for pain control and Tigan for nausea.
Unfortunately she left AGAINST MEDICAL ADVICE prior to resolution of her symptoms.
Discharge Plan
-
Patient Disposition: Against Medical Advice
Referrals:
NONE,* [Family Provider] -
Prescriptions:
No Action
fluoxetine 40 mg Capsule
40 mg PO DAILY
pantoprazole 40 mg Tablet,Delayed Release (Dr/Ec)
40 mg PO DAILY
divalproex [Depakote ER] 500 mg Tablet Extended Release 24 Hr
500 mg PO BID
melatonin 10 mg Tablet
10 mg PO HSPRN PRN (Reason: insomnia)
olanzapine 5 mg Tablet
5 mg PO DAILYPRN PRN (Reason: anxiety)
methylphenidate HCl 36 mg Tablet Extended Release 24hr
36 mg PO DAILY
methylphenidate HCl 10 mg Tablet
10 mg PO DAILY@1500
Discharge Orders:
Discharge Patient (As Directed); Ordered 07/02/24
Ordered By: Karen Leblanc
Discharge Date and Time
Print Language: TELUGU
== END 2024-07-02 12:35 | disposition left against medical advice (07) ==
LOC: 4 EAST ACU 11:41
PROVIDERS: Nurse Practitioner Adult Health; ADMITTING PHYSICIAN Internal Medicine; CONSULT PHYSICIAN Internal Medicine; EMERGENCY PHYSICIAN Student in an Organized Health Care Education/Training Program
DX: R11.2 Nausea with vomiting, unspecified (principal); R10.13 Epigastric pain; K21.00 Gastro-esophageal reflux disease with esophagitis, without bleeding; F12.90 Cannabis use, unspecified, uncomplicated; F41.9 Anxiety disorder, unspecified; F32.A Depression, unspecified; R50.9 Fever, unspecified; R06.02 Shortness of breath; R51.9 Headache, unspecified; R07.9 Chest pain, unspecified; R05.9 Cough, unspecified; G89.29 Other chronic pain; R00.2 Palpitations; K44.9 Diaphragmatic hernia without obstruction or gangrene; K59.00 Constipation, unspecified; I10 Essential (primary) hypertension; K86.89 Other specified diseases of pancreas; R61 Generalized hyperhidrosis; F17.210 Nicotine dependence, cigarettes, uncomplicated; K76.0 Fatty (change of) liver, not elsewhere classified; R94.31 Abnormal electrocardiogram [ECG] [EKG]; E87.6 Hypokalemia; N20.0 Calculus of kidney; F90.9 Attention-deficit hyperactivity disorder, unspecified type; F10.10 Alcohol abuse, uncomplicated; I95.9 Hypotension, unspecified; Z88.5 Allergy status to narcotic agent; Z88.8 Allergy status to other drugs, medicaments and biological substances; Z91.040 Latex allergy status; Z87.19 Personal history of other diseases of the digestive system; Z53.29 Procedure and treatment not carried out because of patient's decision for other reasons
CPT/HCPCS: 74177; 80048; 80053; 80306; 81003; 82077; 83690; 83735; 84703; 85025; 85027; 86140; 93005; 96361; 96374; 96375; 96376; 99285; Q9967

== ENCOUNTER 2024-07-03 15:47 | Inpatient (IN) | payer OTHER, SELFPAY ==
[2024-07-03] VITALS (55 sets, daily range): BP systolic 57–206; BP diastolic 34–147; BMI 22.8
--- NOTE | 2024-07-03 13:49 | ED.GENMED ---
History of Present Illness
General
Chief Complaint: Abdominal Pain
Source: patient
Exam Limitations: none
Time Seen by Provider: 07/03/24 13:42
History of Present Illness
History of Present Illness:
See MDM
Past History
Past History
ED Past Medical History: GERD and Other (pancreatitis)
ED Past Surgical History: Gynecological and Other (back surgery, fissurectomyx2)
Patient has exhibited threatening behavior?: No
Social History
Tobacco: Non-smoker
Alcohol: None
Phy Exam
Physical Exam
Physical Exam:
See MDM
Course
Orders/Labs/Results
Orders:
Orders
07/03/24 13:37
Test Result ONCE
07/03/24 13:40
Complete Blood Count/With Diff Urgent
Comprehensive Metabolic Panel Urgent
HCG, Serum Qualitative Screen Urgent
Comment: Notify provider if positive test present
Lipase Urgent
07/03/24 13:43
EKG [Electrocardiogram (*1)] Urgent
Reason for Study: Abnormal EKG
EKG- Treatment ONCE
07/03/24 13:46
Calcium Gluconate 1 gram/100mL [Calcium Gluconate] 1 gram in 100 ml IV ONCE
Magnesium Sulfate 1 G/D5w [Magnesium Sulfate] 1 gm in 100 ml IV NOW
07/03/24 13:48
0.9% Sodium Chloride 1000 ml [Nss] 1,000 ml IV BOLUS
07/03/24 13:49
Morphine Sulfate 4 mg IV NOW STA
Trimethobenzamide [Tigan] 200 mg IM NOW STA
07/03/24 13:52
Sodium Bicarbonate 50 meq IV NOW STA
07/03/24 14:16
PTT Urgent
Prothrombin Time Urgent
Troponin I Urgent
07/03/24 14:22
Aspirin Chewable [Low Strength Aspirin] 324 mg PO NOW STA
07/03/24 14:25
Electrocardiogram (*1) Urgent
Reason for Study: Shortness of Breath
EKG- Treatment ONCE
Lorazepam [Ativan] 0.5 mg IV NOW STA
07/03/24 14:26
Echo 2D MMode Color/Doppler Urgent
Reason for Study: VF arrest
Cardiology Consult: Margarita Rhoades
07/03/24 14:31
Consult Cardiology [CARDIOLOGY CONSULT] Stat
Consulting Provider: Margarita Rhoades
Was physician already notified: Yes
Metoprolol [Lopressor] 5 mg IV NOW STA
07/03/24 14:52
Add On- LAB Routine
Tests Added?: mag
Admit/Transfer Patient As Directed
Co-Sign Provider:
Level of Care: Inpatient admission
Assign to:: ICU
Physician / Group: Hospitalist
Diagnosis: V Fib
Reason for Hospitalization: V Fib
Expected length of stay greater than two midnights?: Yes
ELOS- Estimated Length of Stay in days: 3
I certify the patient meets the requirements for IP care: Yes
Urine Drug Abuse Screen Urgent
PRN Pain Medication Management As Directed
May give lesser potent ordered pain med per pt: Yes
preference::
Protocol:: Medication orders for pain may be administered in a
manner that supports deferring to patient preference
when the pt is:
- Requesting an ordered lesser potent pain medication.
Least to most potent pain medications are defined
as: acetaminophen < NSAID < tramadol < opioids
(morphine, oxycodone, hydromorphone).
- Requesting a lesser dose of the same medication IF
ORDERED.
- Requesting a less intrusive route of administration
if both routes are prescribed by the provider (PO <
IV).
Abnormal Lab Results
07/03/24
13:40
WBC 4.7 L 10^3/uL
(4.8-10.8)
MPV 12.8 H fL
(7.4-10.4)
Potassium 3.1 L mmol/L
(3.5-5.1)
Chloride 96 L mmol/L
(98-107)
BUN < 2 L mg/dl
(7-17)
Creatinine 0.5 L mg/dL
(0.6-1.0)
Glucose 106 H mg/dl
(70-99)
07/03/24 13:40
07/03/24 13:40
Vital Signs
Initial and Last Documented VS:
Initial Vital Signs
Temp Pulse Resp BP Pulse Ox
98.9 F 78 20 103/73 97
07/03/24 13:34 07/03/24 13:34 07/03/24 13:34 07/03/24 13:34 07/03/24 13:34
Last Documented Vital Signs
Temp Pulse Resp BP Pulse Ox
98.9 F 100 20 150/122 97
07/03/24 13:34 07/03/24 14:45 07/03/24 14:45 07/03/24 14:40 07/03/24 13:34
MDM/Problems Addressed
Differential Diagnosis Includes:
HPI and MDM Narrative:
39-year-old female presenting for evaluation of persistent nausea and vomiting. Patient was seen in the emergency department for similar issues a few days ago. She had a CT showing evidence of gastroenteritis. She was admitted for symptom control
she does have a history of prolonged QT. She left AMA yesterday out of fear of losing her job. Because symptoms persisted, she called 911 who provided IV Zofran. On arrival, patient has tachyarrhythmia long QTc. Immediately, patient started on
magnesium. Prior records show that she has low bicarb. Will give amp of bicarb immediately and will hang calcium as well. Will avoid QT prolonging medicines
Physical exam
General: Uncomfortable, nauseous
HEENT: protecting airway
Neck: appears supple
CV: No evidence of cyanosis. Tachycardic and irregular
Resp: No accessory muscle use
Abd: Non-distended. Persistent epigastric tenderness
Extremities: No deformities
Neuro: alert
Psych: Normal affect
Skin: Intact
Problems Addressed including Acute and Chronic Conditions affecting care:
1. Tachyarrhythmia with prolonged QT
Acuity: acute
Prognosis: unstable
Details: Will avoid QT prolonging medicines. Patient given amp of bicarb, magnesium, calcium and
2. V fib arrest
Acuity: acute
Prognosis: unstable
Details: Likely in setting of metabolic derangement. Patient required 1 shock at 200 J unsynchronized
Updates
2 PM as patient was getting the amp of bicarb, she became unresponsive and went to V-fib arrest. The pads were placed on her in less than 1 minute and she was shocked using 200 J. Patient went back into sinus rhythm. The second amp of bicarb was
giving and patient now has a pulse and
I was called back to the room immediately. Patient going to another tachyarrhythmia. Patient given 150 mg of amiodarone. Patient remains awake and alert but is uncomfortable. At this point, EKG was rechecked which shows concern for STEMI. At
2:10 PM I called interventionalists on-call but he was currently scrubbed in the case. I called his partner who came down to the emergency immediately
2:26 p.m. 3rd EKG still shows critically long QT but it has improved. STEMI changes have improved. Will give aspirin
2:50 PM Case rediscussed with cardiology at bedside after stat echo was performed. She does have an EF of 30% with regional wall motion abnormality. Given her past medical history, is unsure if this is new or not. Since the repeat EKG does not
show ST elevation, cardiology will continue to monitor. She will likely need a catheterization at some point during her stay
3 PM hospitalist at bedside. At this time, troponin came back normal. This was relayed to cardiology. They will likely hold from catheterization today
Differential Diagnosis (but not limited to): Metabolic abnormality, ACS
Testing considered: D-dimer
Drug therapy (if applicable): OTC meds, please see d/c instruction regarding Rx drugs
Amount and/or Complexity of Data Reviewed
Clinical info obtained from: Patient
External data reviewed: Recent admission for nausea and vomiting and left AMA yesterday. Patient found to have a low bicarb as of yesterday
Labs I independently reviewed (but not limited to): Mild hypokalemia. Bicarb 23. Calcium normal
Radiology: N/A
Pulse Ox: not hypoxic
EKG independently reviewed: Sinus tachycardia with critically prolonged QT. Multiple PVCs, nonspecific ST abnormality
On Line Csr: Tachycardic with multiple PVCs
Critical Care: The high probability of a clinically significant, sudden or life threatening deterioration of the cardiovascular system(s) required my full and direct attention, intervention and personal management. The aggregate critical care time
was 55 minutes. This time is in addition to time spent performing reported procedures but includes the following:
[x] Data Review and interpretation
[x] Patient assessment and monitoring of vital signs
[x] Documentation
[x] Medication orders and management
Risk of Complication:
Social Determinants of health: Good social support
Discussed with other providers: Director Of Pharmacy, hospitalist
Escalation of Care includes Admit/Obs: Given her V-fib arrest and the echo findings, will admit
Occasional wrong word or 'sound a like' substitutions may have occurred due to the inherent limitations of voice recognition software. Read the chart carefully and recognize, using context, where substitutions have occurred.
*Critical Care Note
Total Time (30-74mins, 75-104mins- exclusive of procedures): 55 min
ED Attending Note
-
Portions of this chart may have been created with voice recognition software.� Occasional wrong word or��sound alike� substitutions may have occurred due to the inherent limitations of voice recognition software.
Discharge Plan
Departure
Patient Disposition: Admit
Date of Disposition: 07/03/24
Time of Disposition: 14:38
Admit to: ICU
Presentation/result/management discussed w/ accepting MD/DO: Director Of Pharmacy
Discharge Problem:
Cardiac arrest with ventricular fibrillation, Prolonged QT syndrome
Prescriptions:
No Action
fluoxetine 40 mg Capsule
40 mg PO DAILY
pantoprazole 40 mg Tablet,Delayed Release (Dr/Ec)
40 mg PO DAILY
divalproex [Depakote ER] 500 mg Tablet Extended Release 24 Hr
500 mg PO BID
melatonin 10 mg Tablet
10 mg PO HSPRN PRN (Reason: insomnia)
olanzapine 5 mg Tablet
5 mg PO DAILYPRN PRN (Reason: anxiety)
methylphenidate HCl 36 mg Tablet Extended Release 24hr
36 mg PO DAILY
methylphenidate HCl 10 mg Tablet
10 mg PO DAILY@1500
Referrals:
UNKNOWN - PT DOES,NOT KNOW [Family Provider] -
Interventions
Interventions:
*Risk Screen - Suicide Last Done: 07/03/24 13:34
*General Assessment Last Done: 07/03/24 13:34
*Neglect/Abuse Screening Last Done: 07/03/24 13:34
Discharge Date and Time
Print Language: ROMANSH
[2024-07-03 13:52] LABS: % Basophils 0.6 % (0-2); % Immature Granulocytes 0.2 % (0-0.5); % Lymphocytes 25.5 % (20.5-51.1); % Monocytes 8.9 % (1.7-9.3); % Neutrophils 64.8 % (42.2-75.2); Absolute Lymphocytes 1.2 10^3/uL (1.2-3.4); Absolute Monocytes 0.4 10^3/uL (0.1-0.6); Absolute Neutrophils 3.1 10^3/uL (1.4-6.5); Hemoglobin 14.4 g/dL (12.0-16.0); Mean Corpuscular Hgb 29.3 pg (27.0-31.0); Mean Corpuscular Volume 81.5 fL (81.0-99.0); Mean Platelet Volume 12.8 fL (7.4-10.4); Nucleated Red Blood Cells % 0 %; Platelet Count 249 10^3/uL (130-400); Red Blood Cell Count 4.91 10^6/uL (4.20-5.40); Red Cell Dist. Width 13.7 % (11.5-14.5); White Blood Cell Count 4.7 10^3/uL (4.8-10.8)
[2024-07-03] MEDS: SODIUM BICARBONATE 50 MEQ IV (14:05)
[2024-07-03] MEDS: NSS 1000 IV (14:06)
[2024-07-03] MEDS: MAGNESIUM SULFATE 100 IV (14:07)
[2024-07-03] MEDS: CALCIUM GLUCONATE 100 IV (14:08)
[2024-07-03 14:09] LABS: HCG, Serum Qualitative Screen Negative
[2024-07-03] MEDS: MORPHINE SULFATE 4 MG IV (14:13)
[2024-07-03] MEDS: TIGAN 200 MG IM (14:14)
[2024-07-03 14:17] LABS: ALT (SGPT) 15 U/L (0-35); AST (SGOT) 23 U/L (14-36); Albumin 4.5 g/dl (3.5-5.0); Alkaline Phosphatase 59 U/L (38-126); Blood Urea Nitrogen < 2 mg/dl (7-17); Calcium 10.2 mg/dl (8.4-10.2); Carbon Dioxide 23 mmol/L (22-30); Chloride 96 mmol/L (98-107); Glucose 106 mg/dl (70-99); Lipase 45 U/L (23-300); Potassium 3.1 mmol/L (3.5-5.1); Sodium 136 mmol/L (135-145); Total Bilirubin 0.6 mg/dl (0.2-1.3); eGFR > 60.00
[2024-07-03] MEDS: LOW STRENGTH ASPIRIN 324 MG PO (14:28)
[2024-07-03] MEDS: ATIVAN 0.5 MG IV (14:29)
[2024-07-03] MEDS: LOPRESSOR 5 MG IV (14:33)
--- NOTE | 2024-07-03 14:40 | EDRN ---
At 1359 pt became unresponsive, went into v-fib. Dr. Brewster called to bedside. Pt. went into v-tach. Second amp of bicarb pushed while pads were set up. Pt shocked at @[address] Brewster. Pt. converted to ST following shock. Pt. became responsive
again. NRB applied. 150mg of ammio pushed at 1407, verbal by Dr. Brewster. Pt. switched 4L NC for support/comfort. repeat EKG preformed. All other medication given documented in DEC.
--- NOTE | 2024-07-03 14:51 | EDRN ---
@3493 Dr. Brewster asked to come to bedside due to abnormal rhythm on the monitor. EKG to be done.
[2024-07-03 14:56] LABS: Troponin I < 0.012 ng/ml
--- NOTE | 2024-07-03 14:56 | PHANOTE ---
med rec note- patient returning to [facility], patient stating she takes lorazepam, no records in [facility] for any narcs being filled, patient I believe mention to the pharmacy Wednesday06/30/24 [place]
--- NOTE | 2024-07-03 15:14 | CON.CAR ---
Addendum entered and electronically signed by Margarita Rhoades DO 07/03/24 16:51:
I saw and examined the patient.
The Master Motorcycle Technician's note was reviewed and I agree with the note.
Comment: Patient seen and examined with cardiac PA in ED room 30 after witnessed VF arrest treated with immediate shock at 200 J without need for CPR. Patient came to [facility] today via ambulance with ongoing abdominal pain and N/V with several ER
visits at [facility] and a recent hospitalization at [facility]. She has a history of alcohol abuse, recurrent pancreatitis, marijuana use and tobacco use/vaping who previously lived in [place] but has been in this area for about a year
going through a divorce. She does have a 17 and 7-year-old who are living down in [place]. She reports having a history of prolonged QT syndrome seen by cardiology in [place]; she denies history of cardiomyopathy, known coronary artery disease
or prior cardiac arrest. She denies prior cardiac catheterization and has never been recommended a defibrillator. She is a difficult historian and not forthright with information. Patient with h/o ETOH use disorder and previously treated for
pancreatitis at [facility] in [place], [place]. Patient was admitted to 07/2023 with pancreatitis and admitted to ETOH relapses, but denied drinking at that time and was actively participating in an ETOH rehab program. Patient came to
[facility] 05/20/24 with abdominal pain and left the ER AMA due to the wait and instead went to [facility] and reports she was admitted there with pancreatitis and that no cause was found although [facility] did recommend that she see a general surgeon as an outpatient
for possible appendectomy, but nothing was urgent. Patient then came back to [facility] 06/30/24 with N/V and CT suggested acute gastroenteritis and acute esophagitis that was treated with IV PPI and lidocaine cream for possible cyclic vomiting from
marijuana syndrome, but patient left AMA on 07/02/24 because she was worried about missing too much work. She has been taking Dramamine and Benadryl at home in addition to her psychiatric medications. She denies recent use of antibiotics. Patient
called 911 today with ongoing N/V and was given Zofran IV in the ambulance. ECG showed long QT and labs showed low bicarb and magnesium then as magnesium rider was started patient had VF arrest that was teated with immediate shock at 200 j with
temple of SR. Patient has received 2 amps of bicarb, amiodarone 150 mg IV x1 bolus, magnesium 1 gram IV x1, KCl 40 meq IV x1 and Lopressor 5 mg IV x1. Urgent bedside echo showed EF reduced at 30% with WMA. Patient denies chest pain and denies
h/o CAD. Family history significant for coronary artery disease in her mother who needed to have a LifeVest several months ago; it is unclear if she has a defibrillator. No family history of sudden cardiac .
GEN: Appears chronically ill complaining of abdominal pain and nausea
HEENT: Mucous membranes dry, sclera anicteric
LUNGS: Clear anterolaterally without wheeze or rales
CV: Reg, S1/S2, no murmur
ABD: +tenderness epigastrium, soft, BS+, ND
EXT: No clubbing, cyanosis, lesions or edema B/L
NEURO: Gross non-focal.
Plan:
History of prolonged QT with VF arrest status post defibrillation in the ED in the setting of electrolyte abnormalities and Zofran administration
-She reports previous history of prolonged QT with unclear workup down in [place]; will try to obtain records.
-Review of EKGs from prior ER visit 06/30/2024 [568 ms]and hospitalization 08/03/2023 long QT [516ms]. We stopped will also try to obtain records from [facility] for pancreatitis which may include an EKG and or cardiac testing
-Received IV amiodarone bolus in the ED at the time of event; will avoid further amiodarone
-IV Lopressor provided x1 in the ED with improved heart rate trends.
-Received 2 amps of bicarb, magnesium 1 gm and potassium 40meq in ER
-Correct electrolytes
-Avoid QT prolonging agents
-Will have EP evaluate
Cardiomyopathy of unclear chronicity with regional wall motion abnormalities
-VF arrest secondary to electrolyte abnormalities and prolonged QT not acute coronary syndrome
-Clinically, no heart failure decompensation
-Initial troponin undetectable; trend
-Will try to obtain records from other institutions although this may prove difficult
-Goal-directed medical therapy will be initiated this hospitalization
-Eventual ischemic evaluation pending hospital course
History of alcoholic pancreatitis and ongoing GI issues/esophagitis with abdominal pain and nausea vomiting
-Workup per primary
-Patient reports that she has been sober for approximately 1 year
-UDS ordered
-[facility] medical records office to obtain records from [facility] admission last month.
Original Note:
Consultation
Consultation Request
Date/Time Consultation Requested: 07/03/24
Date/Time Consultation Performed: 07/03/24
Requesting Provider: Dr. Brewster
Performing Provider: Dr. Rhoades
Reason for Consultation: VF arrest
Medical History
-
History of Present Illness:
Patient came to [facility] today via ambulance with abdominal pain and N/V, cardiology is consulted for VF arrest in the ER. Patient from [facility], but living locally while going through a divorce. Patient with h/o ETOH use disorder and previously
treated for pancreatitis at [facility] in [place]. Patient was admitted to 07/2023 with pancreatitis and admitted to ETOH relapses, but denied drinking at that time and was actively participating in an ETOH rehab program.
Patient came to [facility] 05/20/24 with abdominal pain and left the ER AMA due to the wait and instead went to [facility] and reports she was admitted there with pancreatitis and that no cause was found although [facility] did recommend that she see a general surgeon
as an outpatient for possible appendectomy, but nothing was urgent. Patient then came back to [facility] 06/30/24 with N/V and CT suggested acute gastroenteritis and acute esophagitis that was treated with IV PPI and lidocaine cream for possible cyclic
vomiting from marijuana syndrome, but patient left AMA on 07/02/24 because she was worried about missing too much work. Patient called 911 today with ongoing N/V and was given Zofran IV in the ambulance. ECG showed long QT and labs showed low bicarb
and magnesium then as magnesium rider was started patient had VF arrest that was teated with immediate shock at 200 j with temple of SR. Patient has received 2 amps of bicarb, amiodarone 150 mg IV x1 bolus, magnesium 1 gram IV x1, KCl 40 meq IV
x1 and Lopressor 5 mg IV x1. Urgent bedside echo showed EF reduced at 30% with WMA. Patient denies chest pain and denies h/o CAD. Patient initially denied active or history of ETOH use in the ER when asked by cardiology, but patient denied
repeatedly until finally admitting that she has a h/o ETOH abuse however continues to deny active ETOH use.
PMH:
h/o severe ETOH use disorder
Marijuana vaper
Active smoker
ADHD
Past Medical History
Past Medical History: Other (in HPI)
Past Surgical History: Gynecological (hysterectomy) and Orthopedic (back surgery)
Social History
Tobacco: Vaping (active vaping)
Alcohol: Other (denies active ETOH use, but has a h/o severe ETOH use disorder and previous detox/rehab stays)
Drug: Marijuana (patient says none currently, but tested positive on UDS 06/30/24)
Personal:
Living: Alone
Employment: Employed
Family History
Family History: CAD (mother with [place] and wearing LifeVest and might need an AICD)
Allergies / Home Medications
Allergy/AdvReac Type Severity Reaction Status Date / Time
latex Allergy Rash Verified 07/03/24 13:36
ondansetron [From Zofran] Allergy QT Verified 07/03/24 13:36
prolongation
tramadol Allergy Unknown Verified 07/03/24 13:36
�Medication �Instructions �Recorded �Confirmed �Type
divalproex 500 mg tablet,extended 500 mg PO BID Neurological 08/03/23 07/03/24 History
release 24 hr (Depakote ER) Condition
fluoxetine 40 mg capsule 40 mg PO DAILY Mental 08/03/23 07/03/24 History
Health/Anxiety
melatonin 10 mg tablet 10 mg PO HSPRN PRN insomnia 08/03/23 07/03/24 History
pantoprazole 40 mg tablet,delayed 40 mg PO DAILY heartburn 08/03/23 07/03/24 History
release
methylphenidate HCl 10 mg tablet 10 mg PO DAILY@1500 Neurological 06/30/24 History
Condition
methylphenidate HCl 36 mg 36 mg PO DAILY Neurological 06/30/24 History
tablet,extended release 24 hr Condition
olanzapine 5 mg tablet 5 mg PO DAILYPRN PRN anxiety 06/30/24 07/03/24 History
dimenhydrinate 25 mg chewable 25 mg PO DAILYPRN PRN dizzyness 07/03/24 07/03/24 History
tablet (Dramamine)
diphenhydramine HCl 25 mg capsule 25 mg PO DAILYPRN PRN dizzyness 07/03/24 07/03/24 History
(Benadryl)
Review of Systems
-
History Source: Patient
All other systems: Negative unless noted
Physical Exam
Vital Signs
Temp Pulse Resp BP Pulse Ox
98.9 F 110 12 170/131 97
07/03/24 13:34 07/03/24 15:01 07/03/24 15:01 07/03/24 15:01 07/03/24 13:34
GEN: NAD. AAOx3
HEENT: EOMI, MMM
LUNGS: Clear anterolaterally without wheeze or rales
CV: Reg, S1/S2, no murmur
ABD: +tenderness epigastrium, soft, BS+, ND
EXT: No clubbing, cyanosis, lesions or edema B/L
NEURO: Gross non-focal. Equal muscle strength UE and LE B/L
SKIN: Warm, dry and pink. No rash
Lab Results
07/03/24 13:40
07/03/24 13:40
Troponin I < 0.012 ng/ml 07/03/24 14:16
Impression / Plan
-
PCP: None locally
Impression:
VF arrest
witnessed in [facility] with immediate defibrillation and temple of SR 07/03/24
Hypomagnesemia
Hypokalemia
Long QT
Metabolic acidosis
CM EF 30% with WMA on urgent bedside echo 07/03/24
Abdominal pain with nausea and vomiting
h/o severe ETOH use disorder
Marijuana vaper
Active smoker
ADHD
Echo 07/03/24: Urgent bedside study in [facility], preliminary report, EF 30% with WMA, no significant valve disease
Plan:
-Patient came to [facility] today via ambulance with abdominal pain and N/V, cardiology is consulted for VF arrest in the ER. Patient from [facility], but living locally while going through a divorce. Patient with h/o ETOH use disorder and previously
treated for pancreatitis at [facility] in [place]. Patient was admitted to 07/2023 with pancreatitis and admitted to ETOH relapses, but denied drinking at that time and was actively participating in an ETOH rehab program.
Patient came to [facility] 05/20/24 with abdominal pain and left the ER AMA due to the wait and instead went to [facility] and reports she was admitted there with pancreatitis and that no cause was found although [facility] did recommend that she see a general surgeon
as an outpatient for possible appendectomy, but nothing was urgent. Patient then came back to [facility] 06/30/24 with N/V and CT suggested acute gastroenteritis and acute esophagitis that was treated with IV PPI and lidocaine cream for possible cyclic
vomiting from marijuana syndrome, but patient left AMA on 07/02/24 because she was worried about missing too much work. Patient called 911 today with ongoing N/V and was given Zofran IV in the ambulance. ECG showed long QT and labs showed low bicarb
and magnesium then as magnesium rider was started patient had VF arrest that was teated with immediate shock at 200 j with temple of SR. Patient has received 2 amps of bicarb, amiodarone 150 mg IV x1 bolus, magnesium 1 gram IV x1, KCl 40 meq IV
x1 and Lopressor 5 mg IV x1. Urgent bedside echo showed EF reduced at 30% with WMA. Patient denies chest pain and denies h/o CAD. Patient initially denied active or history of ETOH use in the ER when asked by cardiology, but patient denied
repeatedly until finally admitting that she has a h/o ETOH abuse however continues to deny active ETOH use.
-Urgent bedside cardiology evaluation and echo as noted above.
-Initial Troponin was drawn after shock in the ER and it was undetectable. Trend Troponin
-Eventual cardiac cath pending clinical course
-ECG reviewed by me with prolonged QT and diffuse ST changes
-Zofran given in the ambulance, would avoid additional QT prolonging meds
-2 amps of bicarb given plus KCl and magnesium riders
-UDS ordered, it was positive last week, but ETOH level was negative at that time.
-No additional amiodarone
-[facility] medical records office to obtain records from [facility] admission last month.
--- NOTE | 2024-07-03 15:33 | HPS.HSE ---
Addendum entered and electronically signed by Hanane Hathaway MD 07/03/24 16:51:
Seen earlier. Late documentation
I personally performed a history and physical exam of the patient and discussed management with the resident. I reviewed the resident's note and agree with the documented findings and plan of care HPI/CC except for changes in documentation
39-year-old female admitted because of abdominal pain. Patient was recently admitted here for abdominal pain and left AGAINST MEDICAL ADVICE yesterday as she needed to go back to work. Patient stated that she thinks it was a mistake to do that.
She went home ate and vomited. Today she came back because she was not getting any better. Per history from ER on the way here she received Zofran from EMS. She received bicarb as her bicarb was low yesterday. Patient went into V-fib arrest and
received shock. She was also started on amiodarone. Did not require CPR.
On examination patient is awake alert oriented x 3
Denying any discomfort
Cardiovascular [id number]-[id number] appreciated
Chest clear to auscultation
Abdomen soft and nontender
No pedal edema
# V-fib arrest-requiring defibrillation and hinduism of sinus rhythm
200 j with hinduism of SR, Patient has received 2 amps of bicarb, amiodarone 150 mg IV x1 bolus, magnesium 1 gram IV x1, KCl 40 meq IV x1 and Lopressor 5 mg IV x1.
Prolonged QT
Status post calcium gluconate, magnesium sulfate, amiodarone
Echo shows ejection fraction of 25 to 30%, hypokinesis of the anterior lateral segments, severe hypokinesis of mid anteroseptum, apical septum inferior and mid to distal inferolateral howell.
Follow troponin
EKG reviewed by me-prolonged QT and ST-T changes
QTc prolongation
Patient reported that she had a similar incident 7 years ago when she was in the [facility] where they needed to do CPR patient does not know further details. She follows up with a roughing mill operator in [place] and has not seen anybody locally. She
moved here a year ago.
Replace potassium and magnesium
# Nausea vomiting and abdominal pain CT abdomen pelvis with acute gastroenteritis and esophagitis a day ago
Continue symptomatic treatment, PPI and add H2 blockers
Patient denies any alcohol use for the past 1 year
Patient may need to stop marijuana use
# Anxiety and depression and PTSD-continue Depakote
Hold fluoxetine and olanzapine
Psych evaluation in the morning
#ADHD-hold methylphenidate
# Active smoker-cessation counseling
# Marijuana use
# History of pancreatitis
# DVT prophylaxis-Lovenox
# Full code
Offered to talk to patient's family member she does not want any of her family members to be made aware about this now. She wanted to communicate with the friend only.
D/W ER nurse
Discussed with ER attending
Discussed with cardiology
Cc time spent over 45 min
Original Note:
Family Physician
-
Family Physician: Recently moved from [place]
Chief Complaint
-
Nausea/Vomiting
History of Present Illness
Rozina Tang is a 39 year old female with a past medical history of Anxiety, Depression, PTSD, ADHD, Alcohol use disorder and history of 'passing out/heart stopped requiring CPR' who presented to the Emergency department with complaints of
worsening nausea and vomiting
Patient reports that she left from the hospital yesterday AMA for fear of 'losing her job' after being admitted for epigastric/abdominal pain, Nausea/vomiting. She states that she returned home, made herself some chicken soup and rested on the
couch, feeling at that time a decrease in symptoms. She then woke up a few hours later with a return of severe nausea/vomiting and a fever of 100.9F which prompted her to call the ambulance. On the way into the ED, she was given Zofran by the
paramedics. On arrival she had tachyarrhythmia & severely prolonged QTc. She was given IV magnesium and bicarb. Afterwards, she went into Vfib and was given a single 2 amp defibrillation & 150mg Amiodarone w/ subsequent ROSC. Of note, the patient
endorses a history of her 'heart stopping' seven years ago in [place] when in the hospital, at that time, requiring CPR without shock. She followed with a roughing mill operator in [place], but has not had follow up care with a primary care doctor or a
roughing mill operator since moving to [facility] roughly 1 year ago.
She reports no pertinent family history of sudden cardiac .
Emergency Contacts:
Santos (Father): [phone]
Matthew Matute (friend): [phone]
Medications:
- Olanzapine/Fluoxetine/Depakote (Anxiety, Depression, PTSD), Methylphenidate (ADHD), Pantoprazole (GERD), Ativan prn (Anxiety), Melatonin (Sleep/Anxiety)
Past Medical: Lyme Disease (treated w/ Abx in 2006); rest as above
Surgical History: x2 C-sections, x3 'back surgeries' (unspecified; will question later)
Social History: Moved to [place] within the past year. Has a history of Polysubstance use (tobacco/Alcohol) with last Cigarette/Drink being on 04/16/2023. She endorses significant EtOH use in the past, though a specific amount was not elaborated. She has
two children and shares custody with the biological father. She lives in a house with her landlord.
Medical History
Past Medical History
Past Medical History: Reports GERD and Psychiatric (see note)
Additional Past Medical History:
see note
Past Surgical History: Reports and Orthopedic
Social History
Tobacco: Former Smoker
Alcohol: Former
Drug: None
Personal: Single
Living: Alone
Employment: Employed
Family History
Family History: Not pertinent
Allergies / Home Medications
Allergies reflects when Allergies were last updated in [facility].
Home Medications with original date entered in [facility]
Allergy/Medication List:
See chart
Review of Systems
-
History Source: Patient
A 12 point ROS was completed and negative except as noted: Yes
Constitutional: Reports No Symptoms
EENT: Reports No Symptoms
Respiratory: Reports No Symptoms
Cardiac: Reports No Symptoms
Abdomen/GI: Reports Nausea and Vomiting
: Reports No Symptoms
Musculoskeletal: Reports No Symptoms
Skin: Reports No Symptoms
Neurological: Reports No Symptoms
Endocrine: Reports No Symptoms
Hematologic/Lymphatic: Reports No Symptoms
Psych: Reports No Symptoms
Physical Exam
Vital Signs
Vital Signs
Temp Pulse Resp BP Pulse Ox
98.9 F 110 12 170/131 97
07/03/24 13:34 07/03/24 15:01 07/03/24 15:01 07/03/24 15:01 07/03/24 13:34
Physical Exam
General: Well Developed and Well Nourished
HEENT: NormoCephalic, Anicteric, Moist mucous membranes, PERRLA and [place] Conjunctivae
Respiratory: Clear
Cardiac: S1/S2, Regular Rhythm and Tachycardia
Breast: Deferred by me
GI: Soft, Non Tender, Non Distended and Normal Bowel Sounds
Genito-urinary: Deferred by me
Musculoskeletal: No Clubbing and No Cyanosis
Neuro: Awake, Alert and Oriented
Laboratory Results
-
07/03/24 13:40
07/03/24 13:40
Laboratory Results
PT Cancelled 07/03/24 14:16
INR Cancelled 07/03/24 14:16
APTT Cancelled 07/03/24 14:16
Total Bilirubin 0.6 mg/dl (0.2-1.3) 07/03/24 13:40
AST 23 U/L (14-36) 07/03/24 13:40
ALT 15 U/L (0-35) 07/03/24 13:40
Alkaline Phosphatase 59 U/L (38-126) 07/03/24 13:40
Troponin I < 0.012 ng/ml 07/03/24 14:16
Lipase 45 U/L (23-300) 07/03/24 13:40
Impression/Plan
-
39 year old female with a past medical history of Anxiety, Depression, PTSD, ADHD, Alcohol use disorder and history of 'passing out/heart stopped requiring CPR' who presented to the Emergency department with complaints of worsening nausea and
vomiting
Assessment & Plan:
##Tachyarrhythmia requiring Defibrillation
#History of QTc prolongation
#Subjective history of prior Cardiac Arrest
- S/p defibrillation, Calcium gluconate, Magnesium Sulfate, 150mg Amiodarone resuscitation in the ED
- Echo shows severely reduced LVSF w/ EF 25-30%. Hypokinesis of the lateral and anterior segments, along with severe hypokinesis and severe hypokinesis of mid-anteroseptum, apical septum, inferior and mid to distal inferolateral
howell
- Cardiology following; will plan for cath in the AM
- Troponin x1 (-), will trend x3 and re-evaluate
- Mg 1.5; will replete with 2g over 2 hours and recheck Mg in the PM and replete as needed
#Hypokalemia
- S/p 50 mEq Sodium Bicarb
- was 3.9 as of yesterday and was 3.1 today
- 40 mEq KCl infusion, will re-check K in PM and replete as needed
#Nausea/Vomiting
#Abdominal Pain
- CT-Abdomen from 1 day ago (+) for acute gastroenteritis & acute esophagitis
- s/p IM Trimethobenzamide 200mg for N/V
- c/w home pantoprazole. Start Pepcid for gastritis/esophagitis
#Depression
#Anxiety
#PTSD
- Holding home dose Olanzapine, Fluoxetine due to QTc prolongation risk
- C/w home Depakote 500mg BID
- C/w Ativan 0.5mg prn for anxiety
- Will consult Psych in the AM for potential medication changes that would not put her at risk for prolonged QTc.
#ADHD
- holding home Methylphenidate
#GERD
- c/w home pantoprazole (as above) & add Pepcid for gastritis/esophagitis
#Dispo:
ICU
Diet - NPO After midnight for cardiac cath in the AM
DVT PPx: SCDs
Status: Full Code
[2024-07-03 15:38] LABS: Magnesium 1.5 mg/dl (1.6-2.3)
[2024-07-03 15:40] LABS: INR 1.24; PT 15.4 Sec (11.4-14.6)
[2024-07-03 15:44] LABS: Amphetamines Negative (Negative); Barbiturates Negative (Negative); Benzodiazepines Negative (Negative); Buprenorphine Negative (Negative); Cocaine Negative (Negative); Marijuana Positive (Negative); Methadone Negative (Negative); Methamphetamines Negative (Negative); Opiates Positive (Negative); Phencyclidine Negative (Negative); Tricyclic Antidepressants Negative (Negative)
[2024-07-03] MEDS: KCL 270 MEQ IV (15:52)
[2024-07-03 16:14] LABS: Fentanyl, Urine Negative (Negative)
--- NOTE | 2024-07-03 16:19 | EDRN ---
BP noted to be 81/64 and 82/[address] Hathaway made aware @7872
--- NOTE | 2024-07-03 16:31 | EDRN ---
No answer by Dr. Hathaway, noted resident also on pt's care team, message sent to Dr. Hale for pt's continuous BP in 80s/60s @1630
[2024-07-03] MEDS: NSS 500 IV (16:39)
--- NOTE | 2024-07-03 16:52 | W.PN.UPDATE ---
Addendum entered and electronically signed by Hanane Hathaway MD 07/03/24 17:34:
Discussed with cardiology
Original Note:
Update Note
Progress Note Update
Hypotension noted-MAP over 70. Will give bolus of IV fluids.
Called Matthew Matute and updated per patient request - [phone]
--- NOTE | 2024-07-03 17:45 | EDRN ---
Pt's BP now in the 60s/50s @ 1711. pt. is awake and orientated. Denying any symptoms currently. Same inpatient team contacted to be made aware. Stated to start levo prior to coming up. Cardiology came in while RN was getting ready to start levo to
eval pt. States to hold on the levo, and run the current 500 ml bag hanging wide open as a bolus instead of over 2 hours as order. Stated to go to ICU. Pt. transported to ICU by two RNS on the monitor, levo taken to the floor in case pt requires it.
--- NOTE | 2024-07-03 18:30 | PTCARENOTE ---
Levo titrated to 8 mcg.ICU APPRENTICESHIP REPRESENTATIVE made aware.PICC ordered.
--- NOTE | 2024-07-03 18:32 | PTCARENOTE ---
1735-Received pt from ED via stretcher.Pt is awake,oriented x3.Speech is appropriate.+PLASENCIA.c/o right abdominal pain and epigastric pain /.SR with prolonged QT noted.QT analysis is ongoing.BP 85/41, 67/45.Levophed initiated as ordered.EKG completed
as ordered.Lungs CTA.POX 97% 4l NC.No BM.Voiding via Pure[place].Skin intact without breakdown noted.Plan of care discussed.
[2024-07-03] MEDS: MAGNESIUM SULFATE 50 IV (20:47)
[2024-07-03] MEDS: LR 500 IV (20:47)
[2024-07-03] MEDS: DEPAKOTE ER (24 HR RELEASE) 500 MG PO (20:47)
[2024-07-03] MEDS: DILAUDID 0.5 MG IV (20:48)
[2024-07-03] MEDS: LR 1000 IV (22:19)
[2024-07-03] MEDS: MELATONIN 10 MG PO (22:19)
[2024-07-03] MEDS: PEPCID 40 MG PO (22:19)
[2024-07-04] VITALS (73 sets, daily range): BP systolic 77–130; BP diastolic 49–104; BMI 23.7
--- NOTE | 2024-07-04 | PTCARENOTE ---
Addendum entered by Bia Adams RN 07/04/24 00:10:
Assumed care of pt @2300.
Original Note:
Assumed care of pt from previous RN. Walking rounds completed. Pt AAOx3. No c/o headache or dizziness. Tired. Pt SR w/ prolonged QT on the tele monitor. HR 60-70s. BP 105/84. MAP 91. Levo infusing as ordered. Palpable pulses throughout. No edema. Pt
on 4L NC. POX 100%. Lung sounds clear to auscultation. Deep breathing encouraged. Pt c/o pain in the right upper abdomen. +BS. Pt describes pain as sharp and goes all the way to her back. No c/o nausea at this time. Skin intact. Right upper arm PICC
CDI. Left PIVx2 CDI and flushes. Ordered labs drawn and sent. EKG obtained. Pads on pt. See worklist for full nursing assessment. Call cat within reach.
[2024-07-04 00:19] LABS: Blood Urea Nitrogen 6 mg/dl (7-17); Calcium 8.6 mg/dl (8.4-10.2); Carbon Dioxide 23 mmol/L (22-30); Chloride 97 mmol/L (98-107); Estimated Creatinine Clearance 124 ml/min; Glucose 237 mg/dl (70-99); Magnesium 2.1 mg/dl (1.6-2.3); Potassium 3.5 mmol/L (3.5-5.1); Sodium 136 mmol/L (135-145); eGFR > 60.00
[2024-07-04] MEDS: DILAUDID 0.5 MG IV ×6 (00:42→22:58)
[2024-07-04] MEDS: MAGNESIUM SULFATE 102 GRAMS IV ×2 (00:42→06:13)
[2024-07-04] MEDS: KCL 40 MEQ PO ×2 (00:42→12:43)
[2024-07-04 04:50] LABS: Blood Urea Nitrogen 6 mg/dl (7-17); Calcium 8.2 mg/dl (8.4-10.2); Carbon Dioxide 24 mmol/L (22-30); Chloride 97 mmol/L (98-107); Estimated Creatinine Clearance 124 ml/min; Glucose 196 mg/dl (70-99); Potassium 3.5 mmol/L (3.5-5.1); Sodium 135 mmol/L (135-145); eGFR > 60.00
[2024-07-04 05:08] LABS: Hematocrit 33.3 % (37.0-47.0); Hemoglobin 11.7 g/dL (12.0-16.0); Mean Corp Hgb Conc. 35.1 g/dL (33.0-37.0); Mean Corpuscular Hgb 30.5 pg (27.0-31.0); Mean Corpuscular Volume 86.7 fL (81.0-99.0); Red Blood Cell Count 3.84 10^6/uL (4.20-5.40); Red Cell Dist. Width 14.2 % (11.5-14.5); White Blood Cell Count 7.1 10^3/uL (4.8-10.8)
[2024-07-04] MEDS: LEVOPHED 250 IV (05:22)
[2024-07-04 06:10] LABS: Platelet Count 195 10^3/uL (130-400)
[2024-07-04] MEDS: KCL 100 IV (06:16)
--- NOTE | 2024-07-04 06:29 | PTCARENOTE ---
Pt reassessed. Remains SR w/ prolonged QT on the monitor. BP 100-110's/70s. Levo infusing per protocol. Pt on RA. POX 96%. Labs drawn and set. EKG obtained. See MAR for pain medication administration and electrolyte replacement. Call cat within
reach.
--- NOTE | 2024-07-04 07:20 | W.PN.HOSP.TC ---
Today's Communication/Plan
-
C/w K/Mg repletion. Patient to go for cardiac cath tomorrow morning. Continue to wean Levophed as tolerated. pending psych consult.
Assessment / Plan
Assessment / Plan
##Vfib Arrest requiring Defibrillation
#History of QTc prolongation
# Hx of Vfib arrest/Torsades (2018)
- S/p defibrillation, Calcium gluconate, Magnesium Sulfate, 150mg Amiodarone resuscitation in the ED
- (Echo from 2018 EF 60-65%; 2019 EF 55-60%). Echo in ED showed severely reduced LVSF w/ EF 25-30%, hypokinesis of the lateral and anterior segments, along with severe hypokinesis and severe hypokinesis of mid-anteroseptum, apical septum, inferior
and mid to distal inferolateral howell
- Cardiology following; will plan for cath 07/05 in the AM (NPO After-midnight). Prior cath from 2018 showed angiographically normal coronary arteries
- Troponin peak of 3.740, trending down.
#Hypotension
- Required IV bolus NS and eventually Levophed in the PM following Defibrillation
- Initially required 8, then 12 and down to 2 by the afternoon
- Continue to wean as tolerated for MAP >65
#Hypokalemia
- S/p 50 mEq Sodium Bicarb
- was 3.9 as of yesterday and was 3.5 today. Given 40meq KCl and will recheck in the AM
- Will replete as needed to keep K >4
#Hypomagnesemia
- 2.0 in the AM. Given 2g mag sulfate and will recheck in the AM
- Replete to keep mag >2
#Nausea/Vomiting
#Abdominal Pain
- CT-Abdomen from 1 day ago (+) for acute gastroenteritis & acute esophagitis
- s/p IM Trimethobenzamide 200mg for N/V
- c/w home pantoprazole. Start Pepcid for gastritis/esophagitis
#Cannabis Use
- UD (+) for Cannibis and opioids (received morphine in the ED).
#Depression
#Anxiety
#PTSD
- Holding home dose Olanzapine, Fluoxetine due to QTc prolongation risk
- C/w home Depakote 500mg BID
- C/w Ativan 0.5mg prn for anxiety
- Psych consulted; will give recs but encourage close outpatient followup for medication management
#ADHD
- holding home Methylphenidate
#GERD
- c/w home pantoprazole (as above) & add Pepcid for gastritis/esophagitis
#Dispo:
ICU
Diet - NPO After midnight for cardiac cath in the AM
DVT PPx: SCDs
Status: Full Code
Anticipated Discharge: 24 - 48 hours
Subjective/Interval History
-
Seen at bedside. Patient is comfortable, but still has residual chest/sternal pain which is reproducible. She has no new cardiac symptoms and no acute complaints.
Objective Data
-
Labs:
Laboratory Results
07/03/24 07/03/24 07/04/24
20:00 23:46 04:02
WBC
Hgb
Hct
Plt Count
Sodium 136 135
Potassium Cancelled 3.5 3.5
Chloride 97 L 97 L
Carbon Dioxide 23 24
BUN 6 L 6 L
Creatinine 0.6 0.5 L
Glucose 237 H 196 H
Calcium 8.6 D 8.2 L
07/04/24
04:03
WBC 7.1
Hgb 11.7 L
Hct 33.3 L
Plt Count 195 D
Sodium
Potassium
Chloride
Carbon Dioxide
BUN
Creatinine
Glucose
Calcium
Vital Signs:
Vital Signs
Temp Pulse Resp BP Pulse Ox
98 F 68 10 103/80 100
07/04/24 03:52 07/04/24 06:15 07/04/24 06:15 07/04/24 06:15 07/04/24 06:15
I&O
07/03/24 07/04/24 07/05/24
06:59 06:59 06:59
Intake Total 1796.4 / 1796.4
Output Total 450 / 450
Balance 1346.4 / 1346.4
Review of Systems
-
History Source: Patient
All other systems: Reviewed and negative
Constitutional: Reports No Symptoms
EENT: Reports No Symptoms Reported
Respiratory: Reports No Symptoms
Cardiac: Reports Chest Pain
Abdomen/GI: Reports No Symptoms
Breast: Reports No Symptoms
Genitourinary: Reports No Symptoms
Musculoskeletal: Reports No Symptoms
Skin: Reports No Symptoms
Neuro: Reports No Symptoms
Endocrine: Reports No Symptoms
Hematologic / Lymphatic: Reports No Symptoms
Physical Exam
-
General: Well Developed, Well Nourished, No Apparent Distress, Comfortable and Conversant
HEENT: Normocephalic, Atraumatic, Moist Mucous Membranes, [place] Conjunctivae and PERRLA
Respiratory: Clear to Auscultation
Cardiac: Regular Rhythm and S1/S2
Breast: Deferred by me
GI: Soft, Nontender and Nondistended
Musculoskeletal: No Clubbing, No Cyanosis and No Edema
Skin: IV Access / Catheter Site
Neuro: Awake, Alert, Oriented, No Motor Deficits and No Sensory Deficits
--- NOTE | 2024-07-04 08:00 | PTCARENOTE ---
Assumed care of pt from previous RN. Walking rounds completed. AAOx3. Pt resting in bed at time of assessment. NSR w/ prolonged QT. HR 70s. +pulses. No edema. 98% on RA. Lung sounds clear. Reports pain in the right upper abdomen. Tender to palpate.
+BS. Right upper arm PICC.Flushed and patent. PIVx2. will continue to monitor.
--- NOTE | 2024-07-04 08:05 | CON.INTV ---
Consultation
Consultation Request
Date/Time Consultation Requested: 07/03/2024
Date/Time Consultation Performed: 07/04/2024 - 801
Requesting Provider: Dr. Hathaway
Performing Provider: Dr. Avila
Reason for Consultation: VF arrest s/p shock
Medical History
-
Chief Complaint: Nausea + abdominal pain
History of Present Illness:
39-year-old female former tobacco smoker with 5-pack-year history with a past medical history of alcohol use (sober for about 1 year), history of THC use, history of pancreatitis, ADHD, hypertension, anxiety/depression and GERD who presents with
nausea + abdominal pain. She says she has been nauseous and vomiting for the last few days. She was recently here in from 06/30 - 07/02/2024 with abd pain and N/V, where CT abdomen/pelvis showed acute gastroenteritis with esophagitis and a punctate
1 mm nonobstructive calculus in the left kidney. She was given supportive care with IV morphine + Moon but unfortunately had to leave [place] as she thought she was going to lose her job. She is now back with abdominal pain, nausea/vomiting.
Vomiting occurs after eating. Initial vitals in triage showed she was afebrile to 98.9 �F, pulse rate 78, breathing at 20 breaths/min, BP 103/73 and saturating 97% on room air. Initial labs were pertinent for leukopenia with WBC 4.7, Hb 14.4,
potassium 3.1, magnesium 1.5, initial troponin negative at <0.012, lipase negative, and UDS positive for opiates + marijuana. CXR showed no acute cardiopulmonary process. In the ER she was given magnesium, calcium gluconate, aspirin, Ativan, 5 mg
IV Lopressor, 4 mg morphine, IVF with NS 0.9% X1 liter, 1 amp sodium bicarb + trimethobenzamide 200mg. While in the ER she went into V-fib arrest after getting the amp of bicarb, and received a shock (200J) which put her into NSR. Per the H&P + ER
note, no CPR was performed. Pt then developed another arrhythmia and amiodarone given. EKG done showed prolonged QT with concerns for ischemia (ROYCE in V2 with lateral ST-depressions) - cardiology evaluated the patient with stat echo performed
showing LVEF of 30% with regional wall motion abnormalities. Patient admitted to the ICU for further care and electric range preparer services consulted for additional management/recommendations.
Patient seen and evaluated this morning. Heart rate 85, BP 86/62, SpO2 100% on room air. She is on 2mcg/min of Levophed; she currently denies shortness of breath and she has mild chest pain. She is slow to respond but answering questions
appropriately and is in no acute distress. She denies REDDY, abdominal pain, fevers or chills.
PMHx: History of alcohol use, marijuana use, history of pancreatitis, ADHD, former tobacco use, Hx of lyme disease, hypertension, anxiety/depression, GERD, chronic back pain
PSHx: C-sections x2, hysterectomy, back surgery, fissurectomy x 2
Past Medical History
Past Medical History: Other (Above as per HPI)
Past Surgical History: Other (Above as per HPI)
Social History
Tobacco: Smoker (Smokes 1-2 cigarettes a day with 5-pack-year history (0.5 PPD X 10 years))
Alcohol: Former (Sober for about 1 year)
Drug: Marijuana
Living: Other (Lives in a home with landlord)
Employment: Employed
Family History
Family History: Reviewed & Not Pertinent
Allergies / Home Medications
Allergies
Allergy/AdvReac Type Severity Reaction Status Date / Time
latex Allergy Rash Verified 07/03/24 13:36
tramadol Allergy Unknown Verified 07/03/24 13:36
ondansetron [From Zofran] AdvReac QT Verified 07/03/24 16:59
prolongation
Home Medications
�Medication �Instructions �Recorded �Confirmed �Last Taken �Type
divalproex 500 mg tablet,extended 500 mg PO BID Neurological 08/03/23 07/03/24 Unknown History
release 24 hr (Depakote ER) Condition
fluoxetine 40 mg capsule 40 mg PO DAILY Mental 08/03/23 07/03/24 Unknown History
Health/Anxiety
melatonin 10 mg tablet 10 mg PO HSPRN PRN insomnia 08/03/23 07/03/24 Unknown History
pantoprazole 40 mg tablet,delayed 40 mg PO DAILY heartburn 08/03/23 07/03/24 Unknown History
release
methylphenidate HCl 10 mg tablet 10 mg PO DAILY@1500 Neurological 06/30/24 07/03/24 06/29/24 History
Condition
methylphenidate HCl 36 mg 36 mg PO DAILY Neurological 06/30/24 07/03/24 06/30/24 History
tablet,extended release 24 hr Condition
olanzapine 5 mg tablet 5 mg PO DAILYPRN PRN anxiety 06/30/24 07/03/24 Unknown History
dimenhydrinate 25 mg chewable 25 mg PO DAILYPRN PRN dizzyness 07/03/24 07/03/24 07/03/24 History
tablet (Dramamine)
diphenhydramine HCl 25 mg capsule 25 mg PO DAILYPRN PRN dizzyness 07/03/24 07/03/24 07/03/24 History
(Benadryl)
Review of Systems
-
History Source: Patient
All other systems: Negative unless noted
Vitals / Labs / Diagnostic Testing
Vital Signs
Temp Pulse Resp BP Pulse Ox
98.8 F 68 10 103/80 100
07/04/24 08:09 07/04/24 06:15 07/04/24 06:15 07/04/24 06:15 07/04/24 06:15
Lab Data
07/04/24 04:03
07/04/24 04:02
Laboratory Results
07/03/24 07/03/24
14:16 15:10
PT Cancelled 15.4 H
INR Cancelled 1.24
APTT Cancelled 22.0 L
Diagnostic Testing:
Physical Exam
-
HEENT: Normocephalic and Anicteric
Cardiovascular: S1/S2 and Peripheral Edema (negative)
Respiratory: Clear, Wheeze (negative), Rales (negative), Rhonchi (negative) and Non-Labored Respirations
GI: Soft, Non Distended, Non Tender and Normal Bowel Sounds
Neurology: AO x 3 and Tremors (negative)
Skin: Warm and Dry
General: Respiratory Distress (negative), Fever (negative) and Chills (negative)
Assessment
-
Assessment: 39-year-old female former tobacco smoker with 5-pack-year history with a past medical history of alcohol use (sober for about 1 year), history of THC use, history of pancreatitis, ADHD, hypertension, anxiety/depression and GERD who
presents with nausea + abdominal pain. She says she has been nauseous and vomiting for the last few days. She was recently here in from 06/30 - 07/02/2024 with abd pain and N/V, where CT abdomen/pelvis showed acute gastroenteritis with esophagitis
and a punctate 1 mm nonobstructive calculus in the left kidney. She was given supportive care with IV morphine + Moon but unfortunately had to leave [place] as she thought she was going to lose her job. She is now back with abdominal pain,
nausea/vomiting. Vomiting occurs after eating. Initial vitals in triage showed she was afebrile to 98.9 �F, pulse rate 78, breathing at 20 breaths/min, BP 103/73 and saturating 97% on room air. Initial labs were pertinent for leukopenia with WBC
4.7, Hb 14.4, potassium 3.1, magnesium 1.5, initial troponin negative at <0.012, lipase negative, and UDS positive for opiates + marijuana. CXR showed no acute cardiopulmonary process. In the ER she was given magnesium, calcium gluconate, aspirin,
Ativan, 5 mg IV Lopressor, 4 mg morphine, IVF with NS 0.9% X1 liter, 1 amp sodium bicarb + trimethobenzamide 200mg. While in the ER she went into V-fib arrest after getting the amp of bicarb, and received a shock (200J) which put her into NSR. Per
the H&P + ER note, no CPR was performed. Pt then developed another arrhythmia and amiodarone given. EKG done showed prolonged QT with concerns for ischemia (ROYCE in V2 with lateral ST-depressions) - cardiology evaluated the patient with stat echo
performed showing LVEF of 30% with regional wall motion abnormalities. Patient admitted to the ICU for further care and electric range preparer services consulted for additional management/recommendations.
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
Impression:
#V-fib/TDT arrest in the setting of hypokalemia + hypomagnesemia s/p defibrillation in the ER with ROSC
#Shock - likely due to hypovolemia
#History of prolonged QTc (619ms via EKG this AM)
#Cardiomyopathy with acute HFrEF - suspected Takotsubo's cardiomyopathy
#Nausea/vomiting with acute gastroenteritis, suspected to be food poisoning vs cyclic vomiting syndrome
#Electrolyte derangements with hypokalemia + hypomagnesemia due to nausea/vomiting with reduced PO intake
#Hyperglycemia
#Anemia (baseline Hb 12.5-14g/dL)
#Elevated troponin likely due to V-fib arrest with defibrillation - troponin peaked at 3.74 on 07/03/2024
#History of alcoholic pancreatitis
#History of alcohol use � patient reportedly sober for about 1 year
#Chronic dyspepsia/esophagitis
#History of anxiety/depression/PTSD
#Mild-Moderate pulmonary HTN (PASP: 45-50mmHg with RAP: 8mmHg, per TTE from 07/03/2024)
Plan:
- Patient has received 3.5L of IVF since admission
- She is being weaned off levophed
- Continue Levophed and titrate to MAP >65
- Keep zoll pads on patient
- Replete electrolytes with K>4, Mg>2
- trend BMP, Mg and PO4
- NPO past midnight for left heart cath tomorrow per cardiology
- Defer starting GDMT to cardiology
- Likely will need ICD for secondary prevention prior to discharge. Defer to cardiology
- Check lipid panel and A1C
- Anti-emetics as needed, but need to montior QTc
- Check EKG again in AM
- Would use prochlorperazine for nausea/vomiting
- PPI for esophagitis
- would use prn maalox for any continued indigestion
- She has pepcid ordered as well, but if reflux Sx are controlled by tomorrow then would consider stopping this
- Maintain SpO2 >90-94%
- Maintain MAP>65
- Pain control
- Maintain euglycemia with goal BG 140-180; start moderate resistance ISS
- prn nebulized bronchodilators - not currently bronchospastic
- Incentive spirometer encouraged
- DVT ppx: LMWH
Critical care statement: A total of 41 minutes of critical care time was provided for this patient today. This includes management of unstable vital signs, evaluation of the patient at bedside, reviewing the patient's pertinent medical records
including radiographs, microbiology, laboratory evaluations, and discussion with primary team, consultants, pharmacy, nutrition, physical therapy, case management, charge nurse, critical care nursing, and respiratory therapy.
Data:
CXR 07/03/2024: No acute cardiopulmonary process. Right PICC in position as described.
TTE 07/03/2024:
Severely reduced left ventricular systolic function. Left ventricular ejection
fraction is 25-30% by Junior's method.
The mid-anteroseptum, apical septum, inferior and mid to distal inferolateral
howell are severely hypokinetic. The lateral and anterior segments are
hypokinetic.
Normal right ventricular systolic function
Mild mitral regurgitation
Mild tricuspid regurgitation
Estimated pulmonary artery pressure of 45-50 mmHg. Assuming a right atrial
pressure of 8 mmHg.
No pericardial effusion
[2024-07-04] MEDS: PROTONIX 40 MG PO (08:56)
[2024-07-04] MEDS: DEPAKOTE ER (24 HR RELEASE) 500 MG PO ×2 (08:56→19:49)
[2024-07-04] MEDS: LR 1000 IV (08:57)
--- NOTE | 2024-07-04 09:44 | W.PN.UPDATE ---
Update Note
Progress Note Update
39-year-old female with cardiac arrest
Feeling much better today.
Seen earlier. Late documentation
I personally performed a history and physical exam of the patient and discussed management with the resident. I reviewed the resident's note and agree with the documented findings and plan of care HPI/CC except for changes in documentation
Cardiology notes reviewed-records from [place] and outpatient cardiology office
Patient had V-fib/torsades after vomiting in the setting of food poisoning. She also had severe hypokalemia and hypomagnesemia at that time. Required CPR.
She had a left heart cath with normal coronaries LVEDP 10 EF 60% no regional wall motion abnormalities. Echo 07/14/2018 EF 60 to 65%. 24-hour Holter monitor negative for arrhythmias showed sinus tachycardia.
Echo 06/30/2020 EF 55 to 60% no wall motion abnormalities.
Patient was on 12.5 mg daily of metoprolol as of January 2022
EKG today reviewed by me-sinus rhythm QTc 619
CVS: S1-S2 normal
Chest: CTA B/L
Abdomen: Soft, NT / Bowel sounds present
Extremities: No edema,
# V-fib arrest requiring shock /Defibrillation and sikhism of sinus rhythm
Elevated troponin likely secondary to shock versus other causes
200 j with sikhism of SR, Patient has received 2 amps of bicarb, amiodarone 150 mg IV x1 bolus, magnesium 1 gram IV x1, KCl 40 meq IV x1 and Lopressor 5 mg IV x1.
Prolonged QT- Avoid meds which can cause that
Echo shows ejection fraction of 25 to 30%, hypokinesis of the anterior lateral segments, severe hypokinesis of mid anteroseptum, apical septum inferior and mid to distal inferolateral howell.
Status post calcium gluconate, magnesium sulfate, amiodarone
Troponin nonischemic myocardial injury likely
Electrolytes replaced
For cardiac catheterization tomorrow
Avoid QTc prolonging medicines
Cardiology to evaluate if the patient needs ICD
May need goal-directed medical therapy with PADDY/ARB OR ARNI/MRA/beta-blockers/SGLT2 inhibitors
# Shock-wean Levophed as tolerated. Likely cardiogenic
# Nausea vomiting and abdominal pain CT abdomen pelvis with acute gastroenteritis and esophagitis a day ago
Continue symptomatic treatment, PPI and add H2 blockers
Patient denies any alcohol use for the past 1 year
Patient needs to stop marijuana use which I told her today. She is agreable.
# Anxiety and depression and PTSD-continue Depakote
Hold fluoxetine and olanzapine
Psych evaluation
#ADHD-hold methylphenidate
# Active smoker-cessation counseling
# Marijuana use
# History of pancreatitis
# DVT prophylaxis-Lovenox
# Full code
D/W RN at bed side
D/W Cards
CC time more than 30 min
--- NOTE | 2024-07-04 10:21 | W.PN.CARDCBS ---
Addendum entered and electronically signed by YUE Condon 07/04/24 11:10:
Records obtained from previous penology professor office note from 01/30/2022.
Previous studies:
Echocardiogram 06/30/2020: EF 55 to 60%, LV wall motion normal
Left heart cath 05/13/2018: Angiographically normal coronary arteries, LVEDP 10, LVEF 60%, no regional wall motion abnormalities
Echocardiogram 07/14/2018 EF 60 to 65%
24-hour Holter monitor (date unclear) negative for arrhythmias, + sinus tachycardia
04/2018 in [place] -Patient had V-fib/torsades after vomiting in setting of food poisoning. Found to have severe hypokalemia and hypomagnesium. Converted to sinus rhythm with short-term CPR. Had above cath and echo following vfib arrest.
Last EKG 01/30/2022 (per report, do not have actual EKG) normal sinus rhythm 92 bpm, nonspecific T wave abnormality QTc is reported as 396 ms. As of 01/30/22 she was was on metoprolol 12.5 mg daily, was not able to tolerate higher doses.
Addendum entered and electronically signed by Vern Hanson MD 07/04/24 10:58:
I saw and examined the patient.
The CARE MANAGER CNA or PA's note was reviewed and I agree with the note.
Comment: General: Well developed, well nourished in NAD.
Neck: Supple, no JVD, HJR, carotids +2 B/L, no bruits bilaterally.
Heart: Non displaced PMI, RRR, no murmurs, No S3, S4, no rubs.
Lungs: Clear to auscultation bilaterally, no wheeze, rhonchi, rubs bilaterally,
normal expiratory phase.
Abdomen: Normal bowel sounds, soft, non-tender, non-distended.
Extremities: No clubbing, cyanosis or edema bilaterally.
Neuro: Grossly nonfocal, awake, alert and oriented x3.
Remains in sinus rhythm. Will plan on cardiac catheterization to exclude ischemia as the cause of torsades and also reduced ejection fraction. Need to avoid QT prolonging agents as this may have been precipitated by Zofran. This is now her second
event. May need to consider ICD but will await results of catheterization. Eventual carvedilol and possibly lisinopril or Entresto when blood pressure stable off of pressors. Critical care time 35 minutes
Original Note:
Today's Communication / Plan
-
replete K
avoid QT prolonging meds
get records from previous penology professor to obtain more thorough PMH
cath scheduled for 07/05/24
Impression / Plan
-
PCP: None locally
Previous PCP from [place]: Phill Garg,
Previous penology professor: Bety Aponte MD [facility] [phone]
Impression:
VF arrest
witnessed in [facility] with immediate defibrillation and christianity of SR 07/03/24
Hypomagnesemia
Hypokalemia
Long QT
elevated troponin
Metabolic acidosis
CM EF 30% with WMA on urgent bedside echo 07/03/24
Abdominal pain with nausea and vomiting
pancreatitis
h/o severe ETOH use disorder
Marijuana vaper
Active smoker
ADHD
Echo 07/03/24: Urgent bedside study in [facility], preliminary report, EF 30% with WMA, no significant valve disease
Plan:
-s/p VF arrest in ER 07/03/24, rec'd 1 shock and returned to NSR, occurred in setting of long QT, Zofran use, low bicarb and magnesium. Echo 07/03/24 EF 30% - needs cardiac cath -scheduled for tomorrow 07/05/24. NPO after MN
-troponin peak 3.740, trending down. No chest pain, no ischemic EKG changes, planning on cath 07/05/24.
-QT remains prolonged, EKG personally reviewed 07/04/24 NSR QTc 619 msec
-avoid all QT prolonging agents
-replete K to keep >4, Already rec'd KCl 40meq IV 07/04/24, 0600. Since K 3.5 07/04/24 will give additional KCl 40 meq po now.
-keep Mag >2. Rec'd Mag sulfate 1 gm IV 07/04/24 0600
-obtaining records from her previous penology professor, name above
-UDS ordered, positive for marijuana (pt admits to vaping marijuana) and opiates (had rec'd morphine in ER). ETOH level was negative 06/30/24.
-[facility] medical records office to obtain records from [facility] admission last month.
VF arrest in the ER. Patient from [facility], but living locally while going through a divorce. Patient with h/o ETOH use disorder and previously treated for pancreatitis at [facility] in [place], [place]. Patient was admitted to
07/2023 with pancreatitis and admitted to ETOH relapses, but denied drinking at that time and was actively participating in an ETOH rehab program. Patient came to [facility] 05/20/24 with abdominal pain and left the ER AMA due to the wait and instead went
to [facility] and reports she was admitted there with pancreatitis and that no cause was found although [facility] did recommend that she see a general surgeon as an outpatient for possible appendectomy, but nothing was urgent. Patient then came back to [facility]
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
too much work. Patient called 911 today with ongoing N/V and was given Zofran IV in the ambulance. ECG showed long QT and labs showed low bicarb and magnesium then as magnesium rider was started patient had VF arrest that was teated with immediate
shock at 200 j with christianity of SR. Patient has received 2 amps of bicarb, amiodarone 150 mg IV x1 bolus, magnesium 1 gram IV x1, KCl 40 meq IV x1 and Lopressor 5 mg IV x1. Urgent bedside echo showed EF reduced at 30% with WMA. Patient denies
chest pain and denies h/o CAD. Patient initially denied active or history of ETOH use in the ER when asked by cardiology, but patient denied repeatedly until finally admitting that she has a h/o ETOH abuse however continues to deny active ETOH use.
-Urgent bedside cardiology evaluation and echo as noted above.
Progress Note - Community Engagement Leader
Subjective
Date of Service: July 04, 2024
still w/ abd discomfort but improved, was able to sleep overnight
no palps, chest pain, SOB, lightheadedness
needed to start Levophed 07/03/24 for BPs 50s/, was able to wean off
pt gave me name of previous penology professor and PCP from [place]- attempting to obtain records
Objective
Labs:
07/04/24 04:03
07/04/24 04:02
Labs
Hgb 11.7 g/dL (12.0-16.0) L 07/04/24 04:03
Hct 33.3 % (37.0-47.0) L 07/04/24 04:03
Plt Count 195 10^3/uL (130-400) D 07/04/24 04:03
PT 15.4 Sec (11.4-14.6) H 07/03/24 15:10
INR 1.24 07/03/24 15:10
APTT 22.0 Sec (23.4-35.0) L 07/03/24 15:10
Sodium 135 mmol/L (135-145) 07/04/24 04:02
Potassium 3.5 mmol/L (3.5-5.1) 07/04/24 04:02
BUN 6 mg/dl (7-17) L 07/04/24 04:02
Creatinine 0.5 mg/dL (0.6-1.0) L 07/04/24 04:02
Glucose 196 mg/dl (70-99) H 07/04/24 04:02
Troponins
07/03/24 07/03/2407/04/24
14:16 23:46 05:38
Troponin I < 0.012 3.740 H* 2.560 H* D
Vital Signs and I&O:
Vital Signs
Temp Pulse Resp BP Pulse Ox
98.8 F 68 10 103/80 100
07/04/24 08:09 07/04/24 06:15 07/04/24 06:15 07/04/24 06:15 07/04/24 06:15
Vital Signs
Temp Pulse Resp BP Pulse Ox
98.8 F 68 10 103/80 100
07/04/24 08:09 07/04/24 06:15 07/04/24 06:15 07/04/24 06:15 07/04/24 06:15
Intake & Output
07/02/24 07/03/24 07/04/24 07/05/24
06:59 06:59 06:59 06:59
Intake Total 1796.4 / 1946.3 477.4 / 477.4
Output Total 450 / 850 400 / 400
Balance 1346.4 / 1096.3 77.4 / 77.4
Physical Exam
Physical Exam
GEN: No distress, awake, Ox3
HEENT: supple, anicteric, mmm
LUNGS: CTA, no wheezes/rales
CV: Reg, S1/S2, no murmur
ABD: soft, BS+, ND, sl tender LUQ
EXT: No edema
NEURO: Gross non-focal
SKIN: No rash, warm, dry
--- NOTE | 2024-07-04 11:12 | CM ---
CM following re: discharge planning.
Reviewed pt's chart, met with pt.
Pt is a 39 year old female, admitted with primary dx of achyarrhythmia requiring Defibrillation
Pt reports he has been living with a landlord/friend in a [place], no steps to enter since last summer. Pt reports she has 2 children 17 and 7 year of age and they live with their father in [place]. Pt reports she has been sober for one year after she
completed [facility] custodial D&A treatment, currently attends AA meetings. Pt described herself as independent in all areas [employer]IST.
PCP: pt stated she does not have PCP, and she has a list of PCP.
Pharmacy: [facility]
D/C plan: home with no needs. Friend to transport at discharge.
CM will follow with discharge plan updates as hospitalization progresses
--- NOTE | 2024-07-04 14:26 | CS.PSYCHR ---
Consult Summary - Psychiatry
-
Pt is a 39 yo female recently admitted here at for abdominal pain and left AMA 07/02/24, noted needing to go back to work. Pt returned to ED on 07/03/24 due to persistent sx, vomiting. Per record, pt received Zofran from EMS while en route.
Patient went into V-fib arrest and received shock; did not require CPR. Potassium and magnesium were low on admission. Pt's psychotropic medications are being held due prolonged QTc- 619 today. Depakote ER has been continued. Pt denies recent
mood disturbance, although she expresses concern about not taking Prozac. Pt denies any hx of suicidal thoughts/plan/intent; denies hx of severe mood swings. Today, pt feels 'tired', is resting, anticipating cardiac cath tomorrow.
PMH: noted to have had a similar incident 04/2018 in [place] -Patient had V-fib/torsades after vomiting in setting of food poisoning. Found to have severe hypokalemia and hypomagnesemia. Converted to sinus rhythm with short-term CPR. Had cardiac
cath and echo following V-fib arrest. She had a tube and rod straightener in [place]. Hx of pancreatitis, GERD, chronic pain
Psych Hx: denies inpatient treatment. Hx of anxiety, depression, possible PTSD. Home medications- Zyprexa 5 mg HS 'as needed', Prozac 40 mg Daily, Depakote ER 500 mg BID, Ritalin. Pt reports being on these medications for the past year, followed
by a psychiatrist in [place], has an appointment with new psychiatrist in [place] in early August.
28-day alcohol rehab 5 or 6 years ago, reports sober for the past year. + MJ and tobacco/cig use
SH: moved to [place] one year ago, rents a room from a friend. Mother and sister are supports- live in [place]. 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
MSE: awake but drowsy, cooperative, answering questions, oriented. Mood/affect stable/appropriate. No agitation, no signs of psychosis. Insight appears fair
Imp: Unspecified Mood d/o, stable. Prozac and Zyprexa being held due to prolonged QTc
Cannabis use; Tobacco use. Past hx of alcohol abuse
Rec: Continue Depakote ER; revisit Prozac and Zyprexa after cardiac work-up and medical stabilization. Would continue to hold off methylphenidate
Outpatient psychiatric follow up when medically cleared
Will follow
[2024-07-04 18:09] LABS: Glucose - Point of Care 91 mg/dl (70-99)
[2024-07-04] MEDS: LOVENOX SC (18:23)
--- NOTE | 2024-07-04 20:00 | PTCARENOTE ---
Rec'd pt resting in bed, amb ad rohan to bathroom, anxious, cooperative, SR w/ prol QT, + pulses, no edema, skin warm/dry, levophed gtt at 2mic- to wean keeping MAP > 65- see flow sheet for titrations, RA, lungs clear, sat 96, + bowel sounds, no bm
abd soft, tender RUQ, intermittent nausea, no vomiting, poor appetite, voiding in bathroom
[2024-07-04 20:33] LABS: Blood Urea Nitrogen 4 mg/dl (7-17); Calcium 9.3 mg/dl (8.4-10.2); Carbon Dioxide 30 mmol/L (22-30); Chloride 101 mmol/L (98-107); Estimated Creatinine Clearance 124 ml/min; Glucose 100 mg/dl (70-99); Magnesium 1.6 mg/dl (1.6-2.3); Phosphorus 2.9 mg/dl (2.5-4.5); Potassium 3.9 mmol/L (3.5-5.1); Sodium 139 mmol/L (135-145); eGFR > 60.00
--- NOTE | 2024-07-04 20:45 | PTCARENOTE ---
20 kcl po given for K-3.9, 2 gm mag sulfate hung over 2hr for mag-1.6
[2024-07-04] MEDS: KLOR-CON 20 MEQ PO (20:59)
[2024-07-04] MEDS: ATIVAN 0.5 MG PO (21:00)
[2024-07-04] MEDS: MAGNESIUM SULFATE 50 IV (21:00)
[2024-07-04] MEDS: PEPCID 40 MG PO (21:00)
[2024-07-04] MEDS: MELATONIN 10 MG PO (21:00)
--- NOTE | 2024-07-04 21:00 | PTCARENOTE ---
ativan 1mg po given for anx, melatonin 10mg po given for sleep
[2024-07-04 22:46] LABS: Glucose - Point of Care 135 mg/dl (70-99)
--- NOTE | 2024-07-04 23:00 | PTCARENOTE ---
sys reviewed, dilaudid 0.5 mg iv given for gen abd ache
--- NOTE | 2024-07-04 23:53 | PTCARENOTE ---
neelas reviewed, NPO for cath in am
[2024-07-05] VITALS (52 sets, daily range): BP systolic 75–128; BP diastolic 50–106; BMI 24.0
[2024-07-05] MEDS: LEVOPHED 250 IV (02:58)
--- NOTE | 2024-07-05 03:07 | PTCARENOTE ---
sys reviewed, changes noted
[2024-07-05] MEDS: DILAUDID 0.5 MG IV ×2 (03:13→07:56)
--- NOTE | 2024-07-05 03:15 | PTCARENOTE ---
dilaudid 0.5mg iv given for upper abd pain
[2024-07-05 03:34] LABS: Hematocrit 34.3 % (37.0-47.0); Hemoglobin 11.9 g/dL (12.0-16.0); Mean Corp Hgb Conc. 34.7 g/dL (33.0-37.0); Mean Corpuscular Hgb 29.6 pg (27.0-31.0); Mean Corpuscular Volume 85.3 fL (81.0-99.0); Mean Platelet Volume 13.9 fL (7.4-10.4); Platelet Count 175 10^3/uL (130-400); Red Blood Cell Count 4.02 10^6/uL (4.20-5.40); Red Cell Dist. Width 14.9 % (11.5-14.5); White Blood Cell Count 6.8 10^3/uL (4.8-10.8)
[2024-07-05 03:43] LABS: Blood Urea Nitrogen 3 mg/dl (7-17); Calcium 9.1 mg/dl (8.4-10.2); Carbon Dioxide 30 mmol/L (22-30); Chloride 101 mmol/L (98-107); Estimated Creatinine Clearance 124 ml/min; Glucose 100 mg/dl (70-99); HDL Cholesterol 55 mg/dl; LDL Cholesterol, Calculated 134 mg/dl; Magnesium 1.8 mg/dl (1.6-2.3); Phosphorus 3.4 mg/dl (2.5-4.5); Sodium 138 mmol/L (135-145); Total Cholesterol 210 mg/dl (50-199); Triglyceride 107 mg/dl (10-149); Very Low Density Lipoprotein 21 mg/dl (0-30); eGFR > 60.00
[2024-07-05] MEDS: MAGNESIUM SULFATE 50 IV ×2 (04:13→18:53)
--- NOTE | 2024-07-05 04:14 | PTCARENOTE ---
2 gm mag sulfate hung over 2hr per order
[2024-07-05 07:41] LABS: Glucose - Point of Care 101 mg/dl (70-99)
--- NOTE | 2024-07-05 07:44 | W.PN.HOSP.TC ---
Today's Communication/Plan
-
Continue to wean off levophed. Will transition to Midodrine. Possible further intervention from cardiology, EP studies vs. ICD.
Assessment / Plan
Assessment / Plan
##Vfib Arrest requiring Defibrillation
#History of QTc prolongation, likely secondary to Non-ischemic cardiomyopathy
#Hx of Vfib arrest/Torsades (2018)
- S/p defibrillation, Calcium gluconate, Magnesium Sulfate, 150mg Amiodarone resuscitation in the ED
Troponin peak of 3.740, trending down.
- (Echo from 2018 EF 60-65%; 2019 EF 55-60%). Echo in ED showed severely reduced LVSF w/ EF 25-30%, hypokinesis of the lateral and anterior segments, along with severe hypokinesis and severe hypokinesis of mid-anteroseptum, apical septum, inferior
and mid to distal inferolateral howell
- Cath: Prior cath from 2018 showed angiographically normal coronary arteries. Today showed No obstructive disease with Mildly elevated LVEDP at 18 mmHg.
- Recommend GDMT for non-ischemic cardiomyopathy & cardiovascular risk factors
- Lipid Panel (Total Chol. 210, Tg 107, LDL 134, VLDL 21, HDL 55). A1C% 5.2
- Start Farxiga as part of GDMT. Will hold on BBs and ARNI due to need for pressors/hypotension.
#Hypotension, likely cardiogenic
- Required IV bolus NS and eventually Levophed in the PM following Defibrillation
- Initially required 8, then 12 and down to 2 by the afternoon
- Continue to wean Levophed as tolerated for MAP >65
- transition to Midodrine after Levophed
#Hypokalemia (resolved)
- S/p 50 mEq Sodium Bicarb on admission likely causing hypokalemia
- Replete to keep above 4.0 for cardiac stability
- K this morning is 4. Stable. Check again tomorrow.
#Hypomagnesemia
- Replete to keep mag >2
- Today was 1.8. Given 2g.
- Monitor in the AM
#Nausea/Vomiting (resolved)
#Abdominal Pain (resolved)
- CT-Abdomen from 1 day ago (+) for acute gastroenteritis & acute esophagitis
- s/p IM Trimethobenzamide 200mg for N/V
- c/w home pantoprazole. C/w Pepcid for gastritis/esophagitis
#Cannabis Use
- UD (+) for Cannibis and opioids (received morphine in the ED).
#Depression
#Anxiety
#PTSD
- Holding home dose Olanzapine, Fluoxetine due to QTc prolongation risk
- C/w home Depakote 500mg BID
- C/w Ativan 0.5mg prn for anxiety
- Psych consulted; Recommend to d/c Prozac and Zyprexa given further discussion on mood Sx. Evaluate as OP the need for Depakote moving forward.
#ADHD
- Continue holding home Methylphenidate
#GERD
- c/w home pantoprazole (as above) & add Pepcid for gastritis/esophagitis
#Dispo:
ICU
Diet - NPO After midnight for cardiac cath in the AM
DVT PPx: SCDs
Status: Full Code
Anticipated Discharge: 24 - 48 hours
Subjective/Interval History
-
Seen in the morning. There were no acute overnight events. She is resting comfortably in the bed with complaints of a persistent epigastric/chest pain with occasional radiation to the back. She has no shortness of breath, palpitations,
lightheadedness or dizziness when walking to the bathroom. She has no other acute complaints at this time.
Objective Data
-
Labs:
Laboratory Results
07/04/24 07/05/24
19:58 03:03
WBC 6.8
Hgb 11.9 L
Hct 34.3 L
Plt Count 175
Sodium 139 138
Potassium 3.9 4.0
Chloride 101 101
Carbon Dioxide 30 30
BUN 4 L 3 L
Creatinine 0.6 0.5 L
Glucose 100 H 100 H
Calcium 9.3 9.1
Vital Signs:
Vital Signs
Temp Pulse Resp BP Pulse Ox
98.1 F 87 15 104/70 93
07/05/24 07:30 07/05/24 06:15 07/05/24 06:15 07/05/24 06:00 07/05/24 06:15
I&O
07/04/24 07/05/24 07/06/24
06:59 06:59 06:59
Intake Total 1796.4 / 1946.3 1639.0 / 1639.0
Output Total 450 / 850 400 / 400
Balance 1346.4 / 1096.3 1239.0 / 1239.0
Review of Systems
-
History Source: Patient
All other systems: Reviewed and negative
Constitutional: Reports No Symptoms
EENT: Reports No Symptoms Reported
Respiratory: Reports No Symptoms
Cardiac: Reports Chest Pain; Denies Diaphoresis, Palpitations or Syncope
Abdomen/GI: Denies Abdominal Pain, Nausea, Vomiting, Diarrhea or Constipated
Breast: Reports No Symptoms
Genitourinary: Reports No Symptoms
Musculoskeletal: Reports No Symptoms
Skin: Reports No Symptoms
Neuro: Reports No Symptoms
Hematologic / Lymphatic: Reports No Symptoms
Physical Exam
-
General: Well Developed, Well Nourished, No Apparent Distress and Comfortable
HEENT: Normocephalic, Atraumatic, Moist Mucous Membranes, Linn Conjunctivae and PERRLA
Respiratory: Clear to Auscultation
Cardiac: S1/S2 and Tachycardic
Breast: Deferred by me
GI: Soft, Nontender, Nondistended and Normal Bowel Sounds
Musculoskeletal: No Clubbing, No Cyanosis and No Edema
Neuro: Awake, Alert and Oriented
[2024-07-05] MEDS: DEPAKOTE ER (24 HR RELEASE) 500 MG PO ×2 (07:56→21:28)
[2024-07-05] MEDS: PROTONIX 40 MG PO (07:56)
--- NOTE | 2024-07-05 08:12 | W.PN.INTV ---
Addendum entered and electronically signed by Jovani Avila MD 07/05/24 16:09:
Update: Patient hemodynamically stable. SBP in the 115-120mmHg range. Off all vasopressors since 12:30 PM today. Patient is stable for downgrade out of ICU to IVU. Key Holder/Pulmonary service will now sign off. Thank you for allowing us to be
involved in the care of this patient. Please reconsult if there are any additional questions/concerns, or if patient's respiratory status deteriorates.
Original Note:
Today's Communication / Plan
Recommendations
Up OOB as tolerated
1 L additional bolus of crystalloids considering IVC collapsibility is 45% via PocUS eval today
LHC today shows no obstructive coronary artery disease
Trend QTc
Defer ICD placement to cardiology
Anxiolytics/antidepressants per psychiatry
Wean off Levophed as tolerated
Maintain MAP >65, goal HR: 60�100
Assessment
-
Assessment: 39-year-old female former tobacco smoker with 5-pack-year history with a past medical history of alcohol use (sober for about 1 year), history of THC use, history of pancreatitis, ADHD, hypertension, anxiety/depression and GERD who
presents with nausea + abdominal pain. She says she has been nauseous and vomiting for the last few days. She was recently here in from 06/30 - 07/02/2024 with abd pain and N/V, where CT abdomen/pelvis showed acute gastroenteritis with esophagitis
and a punctate 1 mm nonobstructive calculus in the left kidney. She was given supportive care with IV morphine + Moon but unfortunately had to leave [employer] as she thought she was going to lose her job. She is now back with abdominal pain,
nausea/vomiting. Vomiting occurs after eating. Initial vitals in triage showed she was afebrile to 98.9 �F, pulse rate 78, breathing at 20 breaths/min, BP 103/73 and saturating 97% on room air. Initial labs were pertinent for leukopenia with WBC
4.7, Hb 14.4, potassium 3.1, magnesium 1.5, initial troponin negative at <0.012, lipase negative, and UDS positive for opiates + marijuana. CXR showed no acute cardiopulmonary process. In the ER she was given magnesium, calcium gluconate, aspirin,
Ativan, 5 mg IV Lopressor, 4 mg morphine, IVF with NS 0.9% X1 liter, 1 amp sodium bicarb + trimethobenzamide 200mg. While in the ER she went into V-fib arrest after getting the amp of bicarb, and received a shock (200J) which put her into NSR. Per
the H&P + ER note, no CPR was performed. Pt then developed another arrhythmia and amiodarone given. EKG done showed prolonged QT with concerns for ischemia (ROYCE in V2 with lateral ST-depressions) - cardiology evaluated the patient with stat echo
performed showing LVEF of 30% with regional wall motion abnormalities. Patient admitted to the ICU for further care and laboratory director services consulted for additional management/recommendations.
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
Impression:
#V-fib/TDT arrest in the setting of hypokalemia + hypomagnesemia s/p defibrillation in the ER with ROSC
#Shock - likely due to hypovolemia in setting of HFrEF
#History of prolonged QTc (619ms via EKG this AM)
#Cardiomyopathy with acute HFrEF - suspected Takotsubo's cardiomyopathy
#Nausea/vomiting with acute gastroenteritis, suspected to be food poisoning vs cyclic vomiting syndrome
#Electrolyte derangements with hypokalemia + hypomagnesemia due to nausea/vomiting with reduced PO intake
#Hyperglycemia - resolved
#Anemia (baseline Hb 12.5-14g/dL)
#Elevated troponin likely due to V-fib arrest with defibrillation - troponin peaked at 3.74 on 07/03/2024
#History of alcoholic pancreatitis
#History of alcohol use � patient reportedly sober for about 1 year
#Chronic dyspepsia/esophagitis
#History of anxiety/depression/PTSD
#Mild-Moderate pulmonary HTN (PASP: 45-50mmHg with RAP: 8mmHg, per TTE from 07/03/2024)
Plan:
- Patient has received 3.5L of IVF since admission
- She remains on on levophed
- Midodrine started
- Continue Levophed and titrate to MAP >65
- PocUS performed this morning showing 45% IVC collapsibility with A-line predominant lung pretty and EF about 30-35%. No pericardial effusion seen. No pleural effusions or ascites seen --> give a 1L bolus of NS 0.9%
- Keep zoll pads on patient
- Replete electrolytes with K>4, Mg>2
- trend BMP, Mg and PO4
- NPO for LHC --> done this morning, showing no obstructive disease with mildly elevated LVEDP at 18 mmHg
- Defer starting GDMT to cardiology
- Likely will need ICD for secondary prevention prior to discharge. Defer to cardiology
- Anti-emetics as needed, but need to montior QTc
- Continue to trend QTc
- Would use prochlorperazine for nausea/vomiting
- Pain control
- Defer anxiolytic + depression treatment to psychiatry
- Need to use medications which do not prolong QTc, which can be challenging
- PPI for esophagitis
- would use prn maalox for any continued indigestion
- Start carafate
- She has pepcid ordered as well, but if reflux Sx are controlled by tomorrow then would consider stopping this
- Maintain SpO2 >90-94%
- Maintain MAP>65
- Pain control
- Maintain euglycemia with goal BG 140-180; continue moderate resistance ISS
- prn nebulized bronchodilators - not currently bronchospastic
- Incentive spirometer encouraged
- DVT ppx: LMWH
Critical care statement: A total of 38 minutes of critical care time was provided for this patient today. This includes management of unstable vital signs, evaluation of the patient at bedside, reviewing the patient's pertinent medical records
including radiographs, microbiology, laboratory evaluations, and discussion with primary team, consultants, pharmacy, nutrition, physical therapy, case management, charge nurse, critical care nursing, and respiratory therapy.
Data:
CXR 07/03/2024: No acute cardiopulmonary process. Right PICC in position as described.
TTE 07/03/2024:
Severely reduced left ventricular systolic function. Left ventricular ejection
fraction is 25-30% by Junior's method.
The mid-anteroseptum, apical septum, inferior and mid to distal inferolateral
howell are severely hypokinetic. The lateral and anterior segments are
hypokinetic.
Normal right ventricular systolic function
Mild mitral regurgitation
Mild tricuspid regurgitation
Estimated pulmonary artery pressure of 45-50 mmHg. Assuming a right atrial
pressure of 8 mmHg.
No pericardial effusion
LHC 07/05/2024:
CONCLUSIONS
1. No obstructive disease.
2. Mildly elevated LVEDP at 18 mmHg.
Subjective Dataa
Subjective Data
Date of Service:
Date of Service: July 05, 2024
Chief Complaint: Key Holder Follow Up
Subjective:
Patient seen and evaluated morning. Heart rate 79, BP 92/68 and saturating 98% on room air. Going down for left heart cath this morning. On Levophed at 1mcg/min. She is very anxious, asking for something to help her nerves. Denies shortness of
breath or chest pain. She wants us to contact her job at [employer] to make them aware that she is currently hospitalized.
Review of Systems
General: Other (Negative unless mentioned above)
Objective Data
Data Reviewed
Vital Signs / I&O / Oxygen:
Vital Signs
Temp Pulse Resp BP Pulse Ox
98.1 F 87 15 104/70 93
07/05/24 07:30 07/05/24 06:15 07/05/24 06:15 07/05/24 06:00 07/05/24 06:15
Intake and Output
07/04/24 07/05/24 07/06/24
06:59 06:59 06:59
Intake Total 1796.4 / 1946.3 1639.0 / 1639.0
Output Total 450 / 850 400 / 400
Balance 1346.4 / 1096.3 1239.0 / 1239.0
SaO2 93
Nasal Cannula flow liters per 2
minute
Physical Exam
General: Respiratory Distress (negative), Comfortable, Chills (negative), Sweats (negative) and Other (Anxious appearing, tearful at time)
HEENT: Normocephalic and Anicteric
Cardiovascular: S1-S2 and Peripheral Edema (negative)
Respiratory: Wheeze (negative), Crackles (negative), Rhonchi (negative) and Non-Labored Respirations
GI: Soft, Non Distended, Non Tender and Normal Bowel Sounds
Neurology: AO x 3, Tremors (negative) and Depressed (and anxious)
Skin: Warm, Dry and Jaundice (negative)
Labs/Micro/Reports
Lab Data
07/05/24 03:03
07/05/24 03:03
[2024-07-05 09:27] LABS: Glycohemoglobin (HgbA1c) 5.2 % (4.0-5.6)
--- NOTE | 2024-07-05 09:35 | PTCARENOTE ---
Received pt awake,alert.Speech is appropriate.Gait is steady.c/o 7/10 right abdominal/epigastric pain.Requested and received Dilaudid with fair relief.SR with prolonged QT noted.QT analysis ongoing.Levophed titrated to 1mcg for MAP 89.Lungs CTA.POX
95% on RA.Denies SOB.NPO.No BM.Voiding yellow urine.Report given to Litigation Manager RN.Pt taken to Litigation Manager via bed at 0915.Plan of care discussed with pt.
--- NOTE | 2024-07-05 09:53 | PTCARENOTE ---
Magdalene bhatt held as per Cardiology MD.Dr Hathaway made aware.
--- NOTE | 2024-07-05 10:07 | ITS.CL.CATH ---
Case Aide - Catheterization
Cardiac Catheterization
Procedure Report:
LEFT HEART CATHETERIZATION
Date of Procedure: July 05, 2024
Referring: Margarita Rhoades D.O.
PROCEDURES:
1. Left heart catheterization, coronary angiogram.
2. Ultrasound-guided access
INDICATION: Status post cardiac arrest in the setting of prolonged QTc and moderately reduced LV systolic function, LVEF of 35%
ACCESS: Right radial artery, 5 Burundian sheath, under ultrasound guidance
HEMODYNAMICS : (mmHg)
AO (s/d) : 100/75
LV (s/d) : 107/9
LVEDP : 18
CORONARY FINDINGS
DOMINANCE: Right
LEFT MAIN: The left main artery is a large-caliber vessel which gives rise to the left anterior descending artery and the left circumflex artery. Angiographically normal vessel.
LEFT ANTERIOR DESCENDING: The left anterior descending artery is a large-caliber vessel which gives rise to 1 major diagonal branch as it courses to the anterior interventricular groove and wraps around the apex. Angiographically normal vessel.
CIRCUMFLEX: The left circumflex artery is a medium caliber vessel which gives rise to 1 major obtuse marginal branch. There is minimal luminal irregularities.
RIGHT CORONARY ARTERY: The right coronary artery is a large-caliber, dominant vessel which gives rise to the right posterior descending artery and the right posterolateral system. Angiographically normal vessel.
SEDATION: 31 minutes of procedural sedation was utilized. An independent medical staff specialist was present to assist with and help manage the patient's level of consciousness and physiologic status.
RADIATION SUMMARY: Fluoro Time (min): 1.8, Dose (mGy): 103.13, DAP (Gy.cm2) : 8.6
Closure Device: Vascular band over right radial artery, 12 cc of air
CONCLUSIONS
1. No obstructive disease.
2. Mildly elevated LVEDP at 18 mmHg.
RECOMMENDATIONS
1. Optimize goal-directed medical therapy for nonischemic cardiomyopathy.
2. Aggressive management of cardiovascular risk factors.
3. Wean radial band per protocol.
4. Outpatient referral for cardiac rehab.
Copy to: Margarita Rhoades D.O.
Amy Soler MD, FACC, [facility]
--- NOTE | 2024-07-05 10:30 | PTCARENOTE ---
Pt transported from Sales Administration Manager to ICU via bed.Pt is awake,slightly drowsy.Denies pain at this time.SR with prolonged QT noted.Right radial T band in place.+ palpable radial pulse.
[2024-07-05] MEDS: ROXICODONE 10 MG PO ×2 (12:30→16:38)
--- NOTE | 2024-07-05 12:35 | PTCARENOTE ---
Pt assessed.Pt is anxious and tearful.Plan of care discussed.Pt is asking for assistance with her follow up appointments.Case management made aware.+ right radial pulse.c/o abdominal pain.Requested and received pain medication.
--- NOTE | 2024-07-05 12:40 | W.PN.UPDATE ---
Update Note
Progress Note Update
39-year-old female with cardiac arrest
Feeling much better today.
Seen earlier. Late documentation
I personally performed a history and physical exam of the patient and discussed management with the resident. I reviewed the resident's note and agree with the documented findings and plan of care HPI/CC except for changes in documentation
Cardiology notes reviewed-records from [place] and outpatient cardiology office
Patient had V-fib/torsades after vomiting in the setting of food poisoning. She also had severe hypokalemia and hypomagnesemia at that time. Required CPR.
She had a left heart cath with normal coronaries LVEDP 10 EF 60% no regional wall motion abnormalities. Echo 07/14/2018 EF 60 to 65%. 24-hour Holter monitor negative for arrhythmias showed sinus tachycardia.
Echo 06/30/2020 EF 55 to 60% no wall motion abnormalities.
Patient was on 12.5 mg daily of metoprolol as of January 2022
EKG today reviewed by me-sinus rhythm QTc 619
CVS: S1-S2 normal
Chest: CTA B/L
Abdomen: Soft, NT / Bowel sounds present
Extremities: No edema,
# V-fib arrest requiring shock /Defibrillation and buddhism of sinus rhythm
Elevated troponin likely secondary to shock versus other causes
200 j with buddhism of SR, Patient has received 2 amps of bicarb, amiodarone 150 mg IV x1 bolus, magnesium 1 gram IV x1, KCl 40 meq IV x1 and Lopressor 5 mg IV x1.
Prolonged QT- Avoid meds which can cause that
Echo shows ejection fraction of 25 to 30%, hypokinesis of the anterior lateral segments, severe hypokinesis of mid anteroseptum, apical septum inferior and mid to distal inferolateral howell.
Status post calcium gluconate, magnesium sulfate, amiodarone
Troponin -nonischemic myocardial injury likely
Avoid QTc prolonging medicines
Cardiology to evaluate if the patient needs ICD
May need goal-directed medical therapy with PADDY/ARB OR ARNI/MRA/beta-blockers/SGLT2 inhibitors-Case management to check pricing for SGLT2 inhibitors. PADDY/ARB/Arni/nakt-dcshvodl-uzubic be started now because of hypotension.
Cardiac catheterization 07/05/2024-nonobstructive coronary disease, mildly elevated LVEDP 18 mmHg.
# Shock-wean Levophed as tolerated. Likely cardiogenic. Will add midodrine . wean Levophed as tolerated.
# Nausea vomiting and abdominal pain CT abdomen pelvis with acute gastroenteritis and esophagitis a day ago
Continue symptomatic treatment, PPI and H2 blockers
Patient denies any alcohol use for the past 1 year
Patient needs to stop marijuana use which I told her . She is agreeable.
# Anxiety and depression and PTSD-continue Depakote
Hold fluoxetine and olanzapine
Psych evaluation appreciated.
OP follow up to restart meds
#ADHD-hold methylphenidate
# Active smoker-cessation counseling
# Marijuana use
# History of pancreatitis
# DVT prophylaxis-Lovenox
# Full code
D/W RN and ui architect at bed side
D/W Cards
Called patient's manager of internal per her request and let them know that she is admitted. I did not disclose medical problems.
CC time more than 30 min
[2024-07-05 12:54] LABS: Glucose - Point of Care 102 mg/dl (70-99)
--- NOTE | 2024-07-05 14:16 | CM ---
CM following re: discharge planning.
Reviewed pt's chart, met with pt.
Psychiatry recommendations noted. CM discussed it with the pt. Pt expressed her agreement with setting up outpatient psychiatric services and pt preferred PHP. Pt refereed to [facility] [phone].
Farxiga hooker checked: pt has [facility] prescription plan. CM called [facility] [phone] was forwarded to clinical care department [phone] and hooker confirmed as follow: Farxiga 10 mg daily: generic - $10.00 co-pay for 30 days and brand
name - $20.00 co-pay for 30 days. With $0.00 coupon pt will have $0.00 co-pay. $0.00 coupon provided.
D/C plan: home with outpatient [facility].
CM will follow with discharge plan updates as hospitalization progresses.
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
[2024-07-05] MEDS: ProAmatine 2.5 MG PO ×2 (14:27→18:54)
[2024-07-05] MEDS: TYLENOL 650 MG PO ×3 (14:27→21:27)
[2024-07-05] MEDS: NSS 1000 IV (14:27)
--- NOTE | 2024-07-05 14:30 | PTCARENOTE ---
NSS bolus administered as per MD order.
[2024-07-05] MEDS: CARAFATE 1 GRAM PO ×2 (16:38→21:28)
[2024-07-05 16:55] LABS: Glucose - Point of Care 93 mg/dl (70-99)
--- NOTE | 2024-07-05 16:55 | PTCARENOTE ---
Pt assessed.No change in assessment.BS 93.Appetite poor.Pt for dose of Farxiga.MD made aware.Pt for transfer to IVU as per MD order.
[2024-07-05] MEDS: FARXIGA PO (16:59)
[2024-07-05 17:08] LABS: Magnesium 1.7 mg/dl (1.6-2.3)
--- NOTE | 2024-07-05 18:36 | PTCARENOTE ---
Report given to IVU RN.
[2024-07-05] MEDS: LOVENOX 40 MG SC (18:56)
[2024-07-05] MEDS: PEPCID 40 MG PO (21:27)
[2024-07-05] MEDS: ATIVAN 0.5 MG PO (21:27)
[2024-07-05] MEDS: MELATONIN 10 MG PO (21:42)
--- NOTE | 2024-07-05 22:30 | PTCARENOTE ---
Pt admitted to IVU room 2244. Pt AAOx3. Speech appropriate. Pt able to independently walk from ICU bed into IVU bed. SR w/ prolonged QT on the tele monitor. HR 80s. BP 110s-120s/70s. Palpable pulses throughout. No edema noted. Pt on RA. POX 95-96%.
Deep breathing encouraged. Lung sounds clear throughout. Pt c/o abdominal pain - mainly located in the upper right quadrant. +BS. Pt OOB to void w/o issue. 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 Right upper arm PICC CDI. Left PIV CDI. Pt oriented to
room. Questions encouraged and answered. See MAR for medication administration. Call cat within reach.
[2024-07-06] VITALS (14 sets, daily range): BP systolic 88–126; BP diastolic 57–100; PULSE 82–93; BMI 23.2
[2024-07-06] MEDS: ROXICODONE 5 MG PO ×4 (04:21→20:59)
[2024-07-06 04:55] LABS: Hematocrit 36.8 % (37.0-47.0); Hemoglobin 12.5 g/dL (12.0-16.0); Mean Corpuscular Hgb 29.8 pg (27.0-31.0); Mean Corpuscular Volume 87.6 fL (81.0-99.0); Mean Platelet Volume 13.5 fL (7.4-10.4); Platelet Count 151 10^3/uL (130-400); White Blood Cell Count 5.1 10^3/uL (4.8-10.8)
[2024-07-06 05:03] LABS: Blood Urea Nitrogen 4 mg/dl (7-17); Carbon Dioxide 29 mmol/L (22-30); Chloride 102 mmol/L (98-107); Estimated Creatinine Clearance 124 ml/min; Glucose 88 mg/dl (70-99); Magnesium 1.9 mg/dl (1.6-2.3); Phosphorus 3.8 mg/dl (2.5-4.5); Potassium 3.9 mmol/L (3.5-5.1); Sodium 140 mmol/L (135-145); eGFR > 60.00
--- NOTE | 2024-07-06 08:08 | W.PN.HOSP.TC ---
Today's Communication/Plan
-
Post op ICD placement. C/w Abx.
Assessment / Plan
Assessment / Plan
##Vfib Arrest requiring Defibrillation
#History of QTc prolongation, likely secondary to Non-ischemic cardiomyopathy
#Hx of Vfib arrest/Torsades (2018)
- S/p defibrillation, Calcium gluconate, Magnesium Sulfate, 150mg Amiodarone resuscitation in the ED
Troponin peak of 3.740, trending down.
- (Echo from 2018 EF 60-65%; 2019 EF 55-60%). Echo in ED showed severely reduced LVSF w/ EF 25-30%, hypokinesis of the lateral and anterior segments, along with severe hypokinesis and severe hypokinesis of mid-anteroseptum, apical septum, inferior
and mid to distal inferolateral howell
- Cath: Prior cath from 2018 showed angiographically normal coronary arteries. Today showed No obstructive disease with Mildly elevated LVEDP at 18 mmHg.
- Recommend GDMT for non-ischemic cardiomyopathy & cardiovascular risk factors
- Lipid Panel (Total Chol. 210, Tg 107, LDL 134, VLDL 21, HDL 55). A1C% 5.2
- Started Farxiga as part of GDMT. Will hold on BBs and ARNI due to need for pressors/hypotension.
- ICD placed today. Recommending telemetry post op, f/u CXR and IV Ancef. Patient also to schedule wound check in 5-7d, w/ plans to up-titrate BB as tolerated.
#Hypotension, likely cardiogenic
- Required Levophed for hypotension, successfully weaned on 07/05
- Now on Midodrine TID, pressures are stable
- Orthostatic vitals (-) for orthostasis
#Hypokalemia (resolved)
- S/p 50 mEq Sodium Bicarb on admission likely causing hypokalemia
- Replete to keep above 4.0 for cardiac stability
- K this morning is 3.9 this morning. Given 20meq.
#Hypomagnesemia
- Replete to keep mag >2
- Today is 1.9, Given 1gm IV
#Nausea/Vomiting (resolved)
#Abdominal Pain (resolved)
- CT-Abdomen from 1 day ago (+) for acute gastroenteritis & acute esophagitis
- s/p IM Trimethobenzamide 200mg for N/V
- c/w home pantoprazole. C/w Pepcid for gastritis/esophagitis
#Cannabis Use
- UD (+) for Cannibis and opioids (received morphine in the ED).
- Discussed cessation and the relationship b/t cannabis and nausea/vomiting
#Depression
#Anxiety
#PTSD
- Holding home dose Olanzapine, Fluoxetine due to QTc prolongation risk
- C/w home Depakote 500mg BID
- C/w Ativan 0.5mg prn for anxiety
- Psych consulted; Recommend to d/c Prozac and Zyprexa given further discussion on mood Sx. Evaluate as OP the need for Depakote moving forward.
- Will give gabapentin 100mg TID for anxiety as it won't prolong QTc
- Will likely discharge on Depakote with instructions for OP f/u
#ADHD
- Continue holding home Methylphenidate
#GERD
- c/w home pantoprazole (as above) & add Pepcid for gastritis/esophagitis
#Dispo:
ICU
Diet - NPO After midnight for cardiac cath in the AM
DVT PPx: SCDs
Status: Full Code
Anticipated Discharge: Within 24 hours
Subjective/Interval History
-
Seen this morning, sleeping comfortably in bed. She is still experiencing epigastric pain, but it is improving. She has minimal lightheadedness when ambulating but it is improving as well. She has no other acute complaints and there were no acute
events overnight.
Objective Data
-
Labs:
Laboratory Results
07/06/24
04:27
WBC 5.1
Hgb 12.5
Hct 36.8 L
Plt Count 151
Sodium 140
Potassium 3.9
Chloride 102
Carbon Dioxide 29
BUN 4 L
Creatinine 0.5 L
Glucose 88
Calcium 9.0
Vital Signs:
Vital Signs
Temp Pulse Resp BP Pulse Ox
98.1 F 68 15 126/95 95
07/06/24 07:15 07/06/24 04:15 07/06/24 07:15 07/06/24 04:04 07/06/24 07:15
I&O
07/05/24 07/06/24 07/07/24
06:59 06:59 06:59
Intake Total 1639.0 / 1642.8 1375.2 / 1375.2
Output Total 400 / 400
Balance 1239.0 / 1242.8 1375.2 / 1375.2
Review of Systems
-
History Source: Patient
All other systems: Reviewed and negative
Constitutional: Reports No Symptoms
EENT: Reports No Symptoms Reported
Respiratory: Reports No Symptoms
Cardiac: Reports No Symptoms; Denies Chest Pain, Diaphoresis, Palpitations or Syncope
Abdomen/GI: Reports Pain (Epigastric); Denies Nausea, Vomiting, Diarrhea or Constipated
Breast: Reports No Symptoms
Genitourinary: Reports No Symptoms
Musculoskeletal: Reports No Symptoms
Skin: Reports No Symptoms
Neuro: Reports No Symptoms
Endocrine: Reports No Symptoms
Physical Exam
-
General: Well Developed, Well Nourished, No Apparent Distress and Comfortable
HEENT: Normocephalic, Atraumatic, Moist Mucous Membranes, Anicteric, [place] Conjunctivae and PERRLA
Respiratory: Clear to Auscultation
Cardiac: Regular Rhythm and S1/S2
Breast: Deferred by me
GI: Soft, Nondistended, Normal Bowel Sounds and Tender (In Epigastric Region)
Musculoskeletal: No Clubbing, No Cyanosis and No Edema
Neuro: Awake, Alert and Oriented
Psych: Calm
[2024-07-06] MEDS: MAGNESIUM SULFATE 100 IV (08:51)
[2024-07-06 08:57] LABS: Glucose - Point of Care 94 mg/dl (70-99)
--- NOTE | 2024-07-06 08:59 | PTCARENOTE ---
patient c/o abd. pain, Roxicodone po given as ordered. mag 1.9, supplemented as ordered. K 3.9, supplemented as ordered.
[2024-07-06] MEDS: KCL 160 MEQ IV (09:37)
[2024-07-06] MEDS: PROTONIX 40 MG PO (09:38)
[2024-07-06] MEDS: TYLENOL 650 MG PO (09:38)
[2024-07-06] MEDS: FARXIGA 10 MG PO (09:38)
--- NOTE | 2024-07-06 09:38 | W.PN.CARDCBS ---
Addendum entered and electronically signed by Beto Callahan DO 07/06/24 12:06:
I saw and examined the patient.
The Criminal Investigator's note was reviewed and I agree with the note.
Comment:
Plan:
Given CM with VF arrest, hx prolonged QT and prior hx VF arrest Dari yrs ago, discussed ICD and pt is agreeable
Discussed with EP and pt will undergo ICD procedure today
Keep K> 4, Mg >2.
Reviewed with psychiatry and will cont to try to reduce use of potential QT prolonging agents.
Start Coreg, cont Farxiga, eventual consideration for ACEI as bp will allow
Drug and alcohol cessation discussed.
Potential ok for d/c tomorrow from cardiac standpoint.
Original Note:
Today's Communication / Plan
-
-ICD today, has been NPO
-start Coreg 3.125 mg bid
-probable d/c tomorrow
Impression / Plan
-
PCP: None locally
Previous PCP from [place]: Phill Garg,
Previous principal systems architect: Bety Aponte MD [facility] [phone]
Impression:
VF arrest
witnessed in D[facility] with immediate defibrillation and samaritan of SR 07/03/24
Nonischemic CM
Hypomagnesemia
Hypokalemia
Long QT
elevated troponin
Metabolic acidosis
CM EF 30% with WMA on urgent bedside echo 07/03/24
Abdominal pain with nausea and vomiting
pancreatitis
h/o severe ETOH use disorder
Marijuana vaper
Active smoker
ADHD
Echo 07/03/24: Urgent bedside study in D[facility], preliminary report, EF 30% with WMA, no significant valve disease
Cardiac catheterization 07/05/2024: No obstructive CAD (minimal luminal irregularies in circumflex), LVEDP 18 mmHg
Plan:
-s/p VF arrest in ER 07/03/24, rec'd 1 shock and returned to NSR, occurred in setting of long QT, Zofran use, low bicarb and magnesium. Echo 07/03/24 EF 30%. cardiac cath 07/05/24 no obstructive CAD. ICD has been advised.
-discussed recommendation for ICD given 2nd Vfib arrest, h/o long QT and new cardiomyopathy. Pt agrees, she has not eaten today - will add on for today
-advance GDMT as tolerated. She was started on Farxiga. BP borderline low and she was started on Midodrine. Would like to add beta karla given long QT. Will start Coreg 3.125 mg bid-I ordered with parameters
-QT remains prolonged, EKG personally reviewed 07/06/24 NSR, diffuse T wave abnormalities, QTc 594 msec-starting beta karla
-avoid all QT prolonging agents
-keep K >4, Mag >2.
-obtained records from her previous principal systems architect, name above
-UDS positive for marijuana (pt admits to vaping marijuana) and opiates (had rec'd morphine in ER). ETOH level was negative 06/30/24.
-[facility] medical records office to obtain records from [facility] admission last month.
VF arrest in the ER. Patient from [facility], but living locally while going through a divorce. Patient with h/o ETOH use disorder and previously treated for pancreatitis at [facility] in [place], [place]. Patient was admitted to
07/2023 with pancreatitis and admitted to ETOH relapses, but denied drinking at that time and was actively participating in an ETOH rehab program. Patient came to [facility] 05/20/24 with abdominal pain and left the ER AMA due to the wait and instead went
to [facility] and reports she was admitted there with pancreatitis and that no cause was found although [facility] did recommend that she see a general surgeon as an outpatient for possible appendectomy, but nothing was urgent. Patient then came back to [facility]
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
too much work. Patient called 911 today with ongoing N/V and was given Zofran IV in the ambulance. ECG showed long QT and labs showed low bicarb and magnesium then as magnesium rider was started patient had VF arrest that was teated with immediate
shock at 200 j with samaritan of SR. Patient has received 2 amps of bicarb, amiodarone 150 mg IV x1 bolus, magnesium 1 gram IV x1, KCl 40 meq IV x1 and Lopressor 5 mg IV x1. Urgent bedside echo showed EF reduced at 30% with WMA. Patient denies
chest pain and denies h/o CAD. Patient initially denied active or history of ETOH use in the ER when asked by cardiology, but patient denied repeatedly until finally admitting that she has a h/o ETOH abuse however continues to deny active ETOH use.
-Urgent bedside cardiology evaluation and echo as noted above.
Progress Note - Hazardous Substances Engineer
Subjective
Date of Service: July 06, 2024
cath 07/05/24: no obstructive CAD
no ventricular arrhythmias on telemetry
discussed recommendation for ICD - she agrees
Objective
Labs:
07/06/24 04:27
07/06/24 04:27
Labs
Hgb 12.5 g/dL (12.0-16.0) 07/06/24 04:27
Hct 36.8 % (37.0-47.0) L 07/06/24 04:27
Plt Count 151 10^3/uL (130-400) 07/06/24 04:27
PT 15.4 Sec (11.4-14.6) H 07/03/24 15:10
INR 1.24 07/03/24 15:10
APTT 22.0 Sec (23.4-35.0) L 07/03/24 15:10
Sodium 140 mmol/L (135-145) 07/06/24 04:27
Potassium 3.9 mmol/L (3.5-5.1) 07/06/24 04:27
BUN 4 mg/dl (7-17) L 07/06/24 04:27
Creatinine 0.5 mg/dL (0.6-1.0) L 07/06/24 04:27
Glucose 88 mg/dl (70-99) 07/06/24 04:27
Troponins
07/03/24 07/03/24 07/04/24
14:16 23:46 05:38
Troponin I < 0.012 3.740 H* 2.560 H* D
07/04/24
12:00
Troponin I Cancelled
Vital Signs and I&O:
Vital Signs
Temp Pulse Resp BP Pulse Ox
98.1 F 68 15 126/95 96
07/06/24 07:15 07/06/24 04:15 07/06/24 07:15 07/06/24 04:04 07/06/24 08:30
Vital Signs
Temp Pulse Resp BP Pulse Ox
98.1 F 68 15 126/95 96
07/06/24 07:15 07/06/24 04:15 07/06/24 07:15 07/06/24 04:04 07/06/24 08:30
Intake & Output
07/04/24 07/05/24 07/06/24 07/07/24
06:59 06:59 06:59 06:59
Intake Total 1796.4 / 1946.3 1639.0 / 1642.8 1375.2 / 1375.2
Output Total 450 / 850 400 / 400
Balance 1346.4 / 1096.3 1239.0 / 1242.8 1375.2 / 1375.2
Physical Exam
Physical Exam
GEN: No distress, awake, Ox3, tearful
HEENT: supple, anicteric, mmm
LUNGS: CTA, no wheezes/rales
CV: Reg, S1/S2, no murmur
ABD: soft, BS+, NT/ND
EXT: No edema
NEURO: Gross non-focal
SKIN: No rash
[2024-07-06] MEDS: DEPAKOTE ER (24 HR RELEASE) 500 MG PO ×2 (09:39→20:56)
[2024-07-06] MEDS: ProAmatine 2.5 MG PO ×3 (10:33→18:57)
[2024-07-06] MEDS: CARAFATE 1 GRAM PO ×3 (10:33→20:58)
--- NOTE | 2024-07-06 10:48 | PTCARENOTE ---
patient was just told by EARRING MAKER that she needs an ICD, patient very weepy, offered emotional support.
--- NOTE | 2024-07-06 11:20 | W.PN.UPDATE ---
Addendum entered and electronically signed by Judy Sanders MD 07/06/24 11:30:
depakote level ordered for tomorrow am. would like level to be between 50 and 100 and adjust accordingly if necessary. also spoke with patient about the need to avoid cannabis. reminded her of hypokalemia and hypomagnesemia at admit and how that
increases her risk.
Original Note:
Update Note
Progress Note Update
patient seen chart reviewed. discussed with dr guerrero and dr sousa. the patient is very overwhelmed given the recommendation of a defibrillator but recognizes that this is the best move for her to prevent another episode of arrest. she is very
scared. also fearful that if this is congenital it could affect her children. offered support and reassurance. patient also continues to need support given difficulties with her ex and sharing custody of the children. no matter what she
will need a lot of support at [place]. [facility] medicine resident is suggesting followup in [facility] until she finds psych support as out patient. had discussed w cm yesterday to see who works with her insurance re psych. also spoke with cm re
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 re anxiety. had discussed use of gabapentin but patient took it in the past and felt it made her'high'. she has taken buspar in the past without relief. for now would continue w ativan but
vermin exterminator would suggest we restsart prozac. spoke w dr sousa who feels it would be safe particularly w defibrillator in place. would optimize depakote dose. it could provide some help w anxiety as well. will follow
[2024-07-06 11:50] LABS: Glucose - Point of Care 78 mg/dl (70-99)
--- NOTE | 2024-07-06 13:10 | W.PN.UPDATE ---
Update Note
Progress Note Update
39-year-old female with cardiac arrest
Feeling much better today.
I personally performed a history and physical exam of the patient and discussed management with the resident. I reviewed the resident's note and agree with the documented findings and plan of care HPI/CC except for changes in documentation
CVS: S1-S2 normal
Chest: CTA B/L
Abdomen: Soft, NT
Extremities: No edema,
# V-fib arrest requiring shock /Defibrillation and sikhism of sinus rhythm
Elevated troponin likely secondary to shock versus other causes
200 j with sikhism of SR, Patient has received 2 amps of bicarb, amiodarone 150 mg IV x1 bolus, magnesium 1 gram IV x1, KCl 40 meq IV x1 and Lopressor 5 mg IV x1.
Prolonged QT- Avoid meds which can cause that
Echo shows ejection fraction of 25 to 30%, hypokinesis of the anterior lateral segments, severe hypokinesis of mid anteroseptum, apical septum inferior and mid to distal inferolateral howell.
Status post calcium gluconate, magnesium sulfate, amiodarone
Troponin -nonischemic myocardial injury likely
May need goal-directed medical therapy with cannot be started now because of hypotension.
Started Farxiga, Coreg. Eventual ARNI/MRA when BP stable.
Cardiac catheterization 07/05/2024-nonobstructive coronary disease, mildly elevated LVEDP 18 mmHg.
For ICD placement today
# Shock-likely cardiogenic-resolved
# Nausea vomiting and abdominal pain CT abdomen pelvis with acute gastroenteritis and esophagitis a day prior to admission
Continue symptomatic treatment, PPI and H2 blockers
Patient denies any alcohol use for the past 1 year
Patient needs to stop marijuana use which I told her . She is agreeable.
# Anxiety and depression and PTSD-continue Depakote
Hold fluoxetine and olanzapine now.
Psych evaluation appreciated.
Patient will need to follow-up with outpatient psychiatrist in [place] or find a new doctor here.
Per discussion with Sindy Astorga per cards to restart Prozac after ICD placement.
Depakote levels in the morning
#ADHD-hold methylphenidate
# Active smoker-cessation counseling
# Marijuana use
# History of pancreatitis
# DVT prophylaxis-Lovenox
# Full code
D/W RN at bed side
D/W Cards
D/W Psyche
--- NOTE | 2024-07-06 13:25 | CM ---
CM following for DC planning needs.
Pt. transferred to IVU from ICU.
Prior to admission, patient is completely indep. 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
Plan to DC to home once medically stable, no needs anticipated.
Pt. had provided me with paperwork from her job; forwarded to medical team.
CM to follow.
[2024-07-06] MEDS: TYLENOL PO (15:03)
--- NOTE | 2024-07-06 15:03 | ITS.CL.ICD ---
Traffic Superintendent - ICD
Implantable Cardioverter Defibrillator
Procedure Report:
ICD IMPLANTATION REPORT
Date of Procedure: July 06, 2024
Primary administrative associate: Dr Margarita Rhoades
PROCEDURES:
ICD Implant
INDICATION FOR PROCEDURE:
Secondary prevention
She has had documented ventricular fibrillation arrest requiring external shock defibrillation. By history, this is her second such event over the course of the past several years. She is known to have baseline prolonged QT interval. She also has
chronic pancreatitis and has been prone to episodes of prolonged nausea vomiting which have been associated with electrolyte abnormalities and marked prolongation of the QT interval. Pancreatitis has been a chronic condition and expectation is she
will continue to have exacerbations with episodes of prolonged nausea and vomiting placing her again at very high risk of electrolyte abnormality and exacerbation of QT prolongation with subsequent torsade the point/VF arrest. Additionally, on
echocardiogram this hospital stay she is found to have new significant left ventricular systolic dysfunction with ejection fraction of 30%, global hypokinesis. Coronary angiography was subsequently performed showing no obstructive coronary artery
disease.
Additionally, there is discussion with patient regarding left-sided or right-sided implantation. She is left-handed but ultimately decided on implantation on the left side as she currently has a PICC line in on the right and she is concerned about
maintaining IV access.
PROCEDURE:
Lidocaine with epi was used for local anesthesia. Central venous access was obtained via axillary venipuncture. An incision was made along the left chest and a pre-pectoral pocket was formed. Using a Seldinger technique and peel-away sheaths, the
pacing leads were placed under fluoroscopic guidance.
Once testing (see below) showed adequate and stable function, the leads were secured using the suture sleeves. The pocket was liberally irrigated with antibiotic solution. The leads were connected to the generator header and the leads and
generator were placed within the pocket. Fluoroscopy confirmed stable lead position. The pocket was closed in the typical fashion. Tyrex antibiotic pouch was used
IMPLANTS:
ICD Medtronic [id number], SN [id number], Left Pectoral
RA Medtronic 5076, SN PJNAVE [id number], RAA
RV Medtronic 6935, SN TDL [id number], RV apical septum
DEVICE TESTING:
Sensing: RA 2.6 mV, RV 4 point mV
Capture: RA 0.5 V@0.5ms, RV 0.75 V@0.5ms
Ohms: RA 532, RV 456
FINAL PROGRAMMING:
Axel Pacing: AAIR <=>DDDR 70-150 ppm
Tachy parameters:
VF: 200 bpm, Shock
VT: 182 bpm, Monitor
COMPLICATIONS:
None
CONCLUSIONS:
Successful implant of dual chamber ICD system.
Normal function of ICD and leads at implant testing.
RECOMMENDATIONS:
Post op care (tele, CXR, IV abx).
In-Office wound check in 5-7 days.
Attempt to uptitrate beta-karla to maximal tolerated dose.
The addition of atrial pacing lead will allow further up titration of beta-karla if blood pressure tolerates
Copy to:
Dr Margarita Rhoades
--- NOTE | 2024-07-06 15:10 | PTCARENOTE ---
patient returned back from ICD placement, LCW Acuseal and pressure dsg. with immobilizer, no pain noted at site, no ecchymosis, no hematoma, distal pulse palpable. monitor shows NSR, BP 93/57, patient is awake but groggy. patient is very sad this is
happening to her. sat with patient answered her questions and offered emotional support. EKG obtained post ICD as ordered. patient c/o abd. pain, Roxicodone po given as ordered.
[2024-07-06] MEDS: FLUSH (NSS) 1 FLUSH IV (16:39)
[2024-07-06] MEDS: ATIVAN 0.5 MG IV (16:39)
--- NOTE | 2024-07-06 16:40 | PTCARENOTE ---
post chest xray completed. patient requested Ativan, given as ordered.
[2024-07-06] MEDS: LOVENOX 40 MG SC (18:57)
[2024-07-06] MEDS: COREG PO (20:55)
[2024-07-06] MEDS: ANCEF 5 IV (20:55)
[2024-07-06] MEDS: PEPCID 40 MG PO (20:57)
[2024-07-06] MEDS: ATIVAN 0.5 MG PO (20:57)
[2024-07-06] MEDS: NEURONTIN 100 MG PO (20:58)
[2024-07-06] MEDS: MELATONIN 10 MG PO (22:59)
[2024-07-06] MEDS: ROXICODONE 10 MG PO (22:59)
[2024-07-07] VITALS (9 sets, daily range): BP systolic 81–116; BP diastolic 63–90; BMI 23.2
[2024-07-07] MEDS: ROXICODONE 10 MG PO ×4 (03:34→23:05)
[2024-07-07] MEDS: ANCEF 5 IV (03:35)
[2024-07-07 04:22] LABS: Hematocrit 38.2 % (37.0-47.0); Hemoglobin 13.2 g/dL (12.0-16.0); Mean Corp Hgb Conc. 34.6 g/dL (33.0-37.0); Mean Corpuscular Hgb 29.9 pg (27.0-31.0); Mean Corpuscular Volume 86.6 fL (81.0-99.0); Mean Platelet Volume 13.9 fL (7.4-10.4); Platelet Count 151 10^3/uL (130-400); Red Blood Cell Count 4.41 10^6/uL (4.20-5.40); White Blood Cell Count 6.2 10^3/uL (4.8-10.8)
[2024-07-07 04:38] LABS: Depakane 61.1 ug/ml (50.0-120.0)
--- NOTE | 2024-07-07 04:44 | PTCARENOTE ---
Pain @ L chest wall overnight- Medicated with PRN crys- Site CDI with pressure dressing in place. soft but tender to touch. Immobilizer on. SR with Pro qt on the EKG.
[2024-07-07 04:47] LABS: Blood Urea Nitrogen 10 mg/dl (7-17); Calcium 9.2 mg/dl (8.4-10.2); Carbon Dioxide 26 mmol/L (22-30); Chloride 102 mmol/L (98-107); Estimated Creatinine Clearance 124 ml/min; Glucose 102 mg/dl (70-99); Magnesium 1.7 mg/dl (1.6-2.3); Phosphorus 4.4 mg/dl (2.5-4.5); Sodium 138 mmol/L (135-145); eGFR > 60.00
[2024-07-07] MEDS: FARXIGA 10 MG PO (07:46)
[2024-07-07] MEDS: CARAFATE 1 GRAM PO ×3 (07:46→21:05)
[2024-07-07] MEDS: NEURONTIN 100 MG PO ×3 (07:46→21:05)
[2024-07-07] MEDS: ProAmatine 2.5 MG PO ×3 (07:46→17:38)
[2024-07-07] MEDS: DEPAKOTE ER (24 HR RELEASE) 500 MG PO ×2 (07:47→21:05)
[2024-07-07] MEDS: PROTONIX 40 MG PO (07:47)
[2024-07-07] MEDS: COREG 3.125 MG PO (07:47)
[2024-07-07] MEDS: TYLENOL 650 MG PO (07:49)
--- NOTE | 2024-07-07 08:49 | W.PN.CARDCBS ---
Addendum entered and electronically signed by Chinedu Justice MD 07/07/24 12:34:
I saw and examined the patient.
The Safety Spec's note was reviewed and I agree with the note.
Comment:
GEN: No distress, awake, Ox3
HEENT: supple, anicteric, mmm
LUNGS: CTA, no wheezes/rales
CV: Reg, S1/S2, 1/6 syst LSB, no gallop
ABD: soft, BS+, NT/ND
EXT: No edema
NEURO: Gross non-focal
SKIN: No rash
Plan:
Overall doing well. ICD site stable. Continue Farxiga and low-dose carvedilol.
Okay for discharge today. will arrange follow up
Would likely hold off on adding midodrine as outpatient for now.
Original Note:
Today's Communication / Plan
-
-ok for discharge today
-discharge on Farxiga and low dose Carvedilol
-wound check at [facility] one week
-one month f/u with cafeteria attendant at [facility]
Impression / Plan
-
PCP: None locally
Previous PCP from [place]: Phill Garg,
Previous cafeteria attendant: Bety Aponte MD [facility] [phone]
Impression:
VF arrest
witnessed in [facility] with immediate defibrillation and temple of SR 07/03/24
Nonischemic CM
Long QT
s/p DC ICD 07/06/24 (Medtronic)
Hypomagnesemia
Hypokalemia
elevated troponin
Metabolic acidosis
Abdominal pain with nausea and vomiting
pancreatitis
h/o severe ETOH use disorder
Marijuana vaper
Active smoker
ADHD
hypotension
Echo 07/03/24: Urgent bedside study in D[facility], preliminary report, EF 30% with WMA, no significant valve disease
Cardiac catheterization 07/05/2024: No obstructive CAD (minimal luminal irregularies in circumflex), LVEDP 18 mmHg
Plan:
-s/p VF arrest in ER 07/03/24, rec'd 1 shock and returned to NSR, occurred in setting of long QT, Zofran use, low bicarb and magnesium. Echo 07/03/24 EF 30%. cardiac cath 07/05/24 no obstructive CAD.
-s/p ICD 07/06/24 (2nd Vfib arrest, h/o long QT and new cardiomyopathy).
-advance GDMT as tolerated. She was started on Farxiga. Would like to add beta karla given long QT-Coreg 3.125 mg bid started yesterday but held last night due to low BP.
-on Midodrine, would try to wean off
-QT remains prolonged, EKG personally reviewed 07/06/24 NSR, diffuse T wave abnormalities, QTc 555 msec-trying to start low dose beta karla
-avoid all QT prolonging agents
-keep K >4, Mag >2.
-telemetry personally reviewed: NSR 80s-90s. No VT.
-obtained records from her previous cafeteria attendant, name above
-UDS positive for marijuana (pt admits to vaping marijuana) and opiates (had rec'd morphine in ER). ETOH level was negative 06/30/24.
-discharge today with outpt f/u with [facility] Cardiology. Has apptmt for wound check 07/14/24 [address] follow[address] Erik Oconnor or Dr Wilks joint terminal attack controller.
-paperwork filled out for her to return to work on 07/11/24. 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
-reviewed activity restrictions s/p new ICD. She is left handed and device is on left. She was advised to wear immobilizer while sleeping for one week.
VF arrest in the ER. Patient from [facility], but living locally while going through a divorce. Patient with h/o ETOH use disorder and previously treated for pancreatitis at [facility] in [place]. Patient was admitted to
07/2023 with pancreatitis and admitted to ETOH relapses, but denied drinking at that time and was actively participating in an ETOH rehab program. Patient came to [facility] 05/20/24 with abdominal pain and left the ER AMA due to the wait and instead went
to [facility] and reports she was admitted there with pancreatitis and that no cause was found although [facility] did recommend that she see a general surgeon as an outpatient for possible appendectomy, but nothing was urgent. Patient then came back to [facility]
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
too much work. Patient called 911 today with ongoing N/V and was given Zofran IV in the ambulance. ECG showed long QT and labs showed low bicarb and magnesium then as magnesium rider was started patient had VF arrest that was teated with immediate
shock at 200 j with temple of SR. Patient has received 2 amps of bicarb, amiodarone 150 mg IV x1 bolus, magnesium 1 gram IV x1, KCl 40 meq IV x1 and Lopressor 5 mg IV x1. Urgent bedside echo showed EF reduced at 30% with WMA. Patient denies
chest pain and denies h/o CAD. Patient initially denied active or history of ETOH use in the ER when asked by cardiology, but patient denied repeatedly until finally admitting that she has a h/o ETOH abuse however continues to deny active ETOH use.
-Urgent bedside cardiology evaluation and echo as noted above.
Progress Note - Auto Clocks Repairer
Subjective
Date of Service: July 07, 2024
s/p ICD yesterday
mild soreness at site
BP 90s/60s 07/06/24 pm, but improved this morning 116/90
getting ready for discharge
Objective
Labs:
07/07/24 03:32
07/07/24 03:32
Labs
Hgb 13.2 g/dL (12.0-16.0) 07/07/24 03:32
Hct 38.2 % (37.0-47.0) 07/07/24 03:32
Plt Count 151 10^3/uL (130-400) 07/07/24 03:32
PT 15.4 Sec (11.4-14.6) H 07/03/24 15:10
INR 1.24 07/03/24 15:10
APTT 22.0 Sec (23.4-35.0) L 07/03/24 15:10
Sodium 138 mmol/L (135-145) 07/07/24 03:32
Potassium 4.0 mmol/L (3.5-5.1) 07/07/24 03:32
BUN 10 mg/dl (7-17) 07/07/24 03:32
Creatinine 0.6 mg/dL (0.6-1.0) 07/07/24 03:32
Glucose 102 mg/dl (70-99) H 07/07/24 03:32
Troponins
07/04/24
12:00
Troponin I Cancelled
Vital Signs and I&O:
Vital Signs
Temp Pulse Resp BP Pulse Ox
97.7 F 95 20 116/90 98
07/07/24 07:09 07/07/24 07:47 07/07/24 07:09 07/07/24 07:47 07/07/24 07:09
Vital Signs
Temp Pulse Resp BP Pulse Ox
97.7 F 95 20 116/90 98
07/07/24 07:09 07/07/24 07:47 07/07/24 07:09 07/07/24 07:47 07/07/24 07:09
Intake & Output
07/05/24 07/06/24 07/07/24 07/08/24
06:59 06:59 06:59 06:59
Intake Total 1639.0 / 1642.8 1375.2 / 1375.2 480 / 480
Output Total 400 / 400
Balance 1239.0 / 1242.8 1375.2 / 1375.2 480 / 480
Physical Exam
Physical Exam
GEN: No distress, awake, Ox3
HEENT: supple, anicteric, mmm
LUNGS: CTA, no wheezes/rales
CV: Reg, S1/S2, no murmur
ABD: soft, BS+, NT/ND
EXT: No edema
NEURO: Gross non-focal
SKIN: LACW ICD site -pressure drsg removed. OCP Collectiveell drsg remains in place. No hematoma
[2024-07-07] MEDS: ROXICODONE 5 MG PO (09:21)
--- NOTE | 2024-07-07 11:15 | PN.CDI ---
CDI
- -
CDI:
Physician Documentation Request
Admit Date: 07/03/24 15:47
Dear Doctor Brandt,
Clinical Indicators:
Patient admitted with right hip fracture; s/p Right long cephalomedullary nail insertion 07/02.
Anesthesia report, EBL 100 ml
07/06 PN, 'Anemia without active bleeding. Hgb stable at 7.2. Likely in part to Iron deficiency anemia along with perioperative blood loss... Chronic iron deficiency anemia secondary to blood loss from ascending colon mass'
Based on the above, could you clarify, the acuity of the anemia you are evaluating, monitoring and/or treating?
Acute on chronic anemia due iron deficiency and perioperative blood loss
Chronic anemia only
Other, please specify
Use of terms such as suspected, likely, concern for, or probable (associated with a specific diagnosis that is being evaluated, monitored, or treated as if it exists) are acceptable and can be coded in the inpatient setting, when documented at the
time of discharge.
Thank you,
Kayleigh Hanna RN BSN
CDI Specialist
available via tiger text
Please use your independent medical judgment in providing your response.
--- NOTE | 2024-07-07 13:05 | W.PN.UPDATE ---
Update Note
Progress Note Update
I personally performed a history and physical exam of the patient and discussed management with the resident. I reviewed the resident's note and agree with the documented findings and plan of care HPI/CC except for changes in documentation
CVS: S1-S2 normal
Chest: CTA B/L
Abdomen: Soft, NT
Extremities: No edema
# V-fib arrest requiring shock /Defibrillation and mormon of sinus rhythm
Elevated troponin likely secondary to shock versus other causes
200 j with mormon of SR, Patient has received 2 amps of bicarb, amiodarone 150 mg IV x1 bolus, magnesium 1 gram IV x1, KCl 40 meq IV x1 and Lopressor 5 mg IV x1.
Prolonged QT- S/P ICD placement due to arrythmias also- ICD placed 07/06/24
Echo shows ejection fraction of 25 to 30%, hypokinesis of the anterior lateral segments, severe hypokinesis of mid anteroseptum, apical septum inferior and mid to distal inferolateral howell.
Troponin -nonischemic myocardial injury likely
May need goal-directed medical therapy with cannot be started now because of hypotension.
Started Farxiga, Coreg. Eventual ARNI/MRA when BP stable.
Cardiac catheterization 07/05/2024-nonobstructive coronary disease, mildly elevated LVEDP 18 mmHg.
# Shock-likely cardiogenic-resolved
# Nausea vomiting and abdominal pain CT abdomen pelvis with acute gastroenteritis and esophagitis a day prior to admission
Continue symptomatic treatment, PPI and H2 blockers
Patient denies any alcohol use for the past 1 year
Patient needs to stop marijuana use which I told her . She is agreeable.
# Anxiety and depression and PTSD-continue Depakote
Hold fluoxetine and olanzapine now.
Psych evaluation appreciated.
Patient will need to follow-up with outpatient psychiatrist in [place] or find a new doctor here.
Per discussion with Dr. Sanders , hold Methylphenidate and have pt see OP Psyche
Depakote levels stable
#ADHD-hold methylphenidate
# Active smoker-cessation counseling
# Marijuana use
# History of pancreatitis
# DVT prophylaxis-Lovenox
# Full code
D/W RN at bed side
D/W Cards
D/W Psyche
Pt does not want us to talk to family.
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
Total discharge coordination time 40 min
--- NOTE | 2024-07-07 14:57 | PTCARENOTE ---
pt continues to be sr on the monitor, hr in the 90s, vss. pt c/o pain in PPM site, crys given as ordered. Continues pain, had cardiology come and look at the pt PPM site due to pain. PPM site is CDI, slight old drainage under dressing. pt washed up
and is ambulating in room and tolerating well. pt educated on plan of care and pt verbalized understanding. call cat within reach.
--- NOTE | 2024-07-07 15:39 | W.PN.UPDATE ---
Update Note
Progress Note Update
patient seen chart reviewed. spoke with dr morataya and with nursing. the patient cardiac russell is doing well and could be dc'ed today from that standpoint . she is extremely anxious about dc and that is understandable given what she has suffered.
the reality is that she is going home with a defib having suffered a cardiac arrest. she is anxious about telling her kids ...we discussed what she might say. 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
and back. we talked about other options eg the kids taking [employer]...her older child is 17. discussed use of ativan rarely prn panic given the situation i think it is justified. she is aware of the risks re addiction . she will go home with #15.
would also restart the prozac 20 mg. i did check with dr sousa who feels this would be safe with defibrillator in place especially. i also gave her the names of two agencies who purport to get speedy appts for psych which she will call. she will
receive the prozac and ativan first doses now and dr bolden will check in to see about dc today. she does have a friend who can stay w her at her home as of wednesday. friend will return from vacation then and has sent her a text that she can come to
her home wednesday. she has the crisis number to call..they can get in touch with me. if she is here in the am will have psych see her. she is NOT suicidal just very very anxious. tried to reassure her that she is actually safer now going home w
defib than she was prior to admit without this.
[2024-07-07] MEDS: PROZAC 20 MG PO (15:54)
[2024-07-07] MEDS: ATIVAN 0.5 MG PO ×2 (15:54→21:05)
--- NOTE | 2024-07-07 15:57 | W.DCSUMMARY ---
Discharge Summary
Discharge Data
Date of Admission: 07/03/24
Date of Discharge: 07/08/24
-
Pending Results: No
Hospital Course
Discharging Physician : Dr. Lavell Hale, Dr. Hanane Hathaway
Disposition : Home
Primary care physician : None; recommendation for follow up with Dr. Hale at [facility]
Principal Discharge diagnosis : Cardiac Arrest w/ Ventricular Fibrillation, Prolonged QT Syndrome, Hypotension, Hypokalemia
Chronic Discharge diagnosis : Depression, Anxiety, PTSD, ADHD
Hospital Course :
Rozina Tang presented to the [facility] on 07/03/2024 after being brought in by ambulance for persistent, severe nausea and vomiting which did not resolve after she left AMA from the [facility] the night prior. En-route to the hospital she was given Zofran by
EMS. On arrival she was found to be in tachyarrhythmia with a long QTc. She was given IV magnesium and Calcium gluconate. Before long she went into Vfib which required defibrillation. A bedside echo at that time revealed reduced EF of 25-30% and
serial troponins were elevated. She was admitted to ICU where she was hypotensive and required Levophed. On admission, Zyprexa, Prozac and Methylphenidate were held. She remained in the ICU for a 2 days where she was weaned from Levophed to
Midodrine. She underwent cardiac catheterization which demonstrated no blockage. Once weaned off pressor support she was downgrade to IVU. In the morning of 07/06 she had an ICD placed and returned to IVU. During the day of 07/07 she was visited by
the psychiatry team who had been following her since admission due to her significant psychiatric history. She was, at that time, very tearful and anxious, so much so that it was recommended she remain another night. She was discharged on the
morning of 07/08.
She was placed on Farxiga and Coreg as part of GDMT for her cardiomyopathy. Follow up appointment was scheduled with Educational Therapy Teacher for the management of GDMT titration and for post-procedure care. She was advised to continue to hold her
Methylphenidate in the setting of her significantly reduced ejection fraction. Psychiatry team sent her out of Ativan for breakthrough anxiety and a renewed prescription for Prozac as it was judged the risk of QTc prolongation was minimal for her at
this time, especially when weighed against psychological consequences of being without the medication. Discussions were also had with the patient to impress the importance of refraining from cannabis use as it can precipitate vomiting/nausea which
can lead to electrolyte disturbances that worsen her cardiac electrophysiology. It was also impressed upon her the importance of finding a Psychiatrist in the area to follow up with for medication management, as the patient has moved to [place] within
the last year and does not have new doctors in the area.
Important imaging findings :
N/A
Procedure findings :
LEFT HEART CATHETERIZATION:
CONCLUSIONS
1. No obstructive disease.
2. Mildly elevated LVEDP at 18 mmHg.
RECOMMENDATIONS
1. Optimize goal-directed medical therapy for nonischemic cardiomyopathy.
2. Aggressive management of cardiovascular risk factors.
3. Wean radial band per protocol.
4. Outpatient referral for cardiac rehab.
ICD IMPLANTATION:
IMPLANTS:
ICD Medtronic [id number], SN [id number] [id number], Left Pectoral
RA Medtronic 5076, SN PJNAVE 551V, RAA
RV Medtronic 6935, SN TDL [id number], RV apical septum
DEVICE TESTING:
Sensing: RA 2.6 mV, RV 4 point mV
Capture: RA 0.5 V@0.5ms, RV 0.75 V@0.5ms
Ohms: RA 532, RV 456
FINAL PROGRAMMING:
Axel Pacing: AAIR <=>DDDR 70-150 ppm
Tachy parameters:
VF: 200 bpm, Shock
VT: 182 bpm, Monitor
COMPLICATIONS:
None
CONCLUSIONS:
Successful implant of dual chamber ICD system.
Normal function of ICD and leads at implant testing.
RECOMMENDATIONS:
Post op care (tele, CXR, IV abx).
In-Office wound check in 5-7 days.
Attempt to uptitrate beta-karla to maximal tolerated dose.
The addition of atrial pacing lead will allow further up titration of beta-karla if blood pressure tolerates
Discharge Plan
-
Patient Disposition: Home (Routine Discharge)
Discharge Diagnosis/Procedures: Cardiac cath 07/05, ICD implant 07/06
Condition: Fair
Diet: 2 Gram Sodium
Activity: Other activity
Additional Activity: see discharge instructions for implanted device
Driving Restrictions: No driving for 1 week
Bathing Restrictions: OK to Shower
Blood Work: Blood draw for BMP, magnesium in one week
Activity Restrictions/Additional Instructions:
[facility] Partial Hospitalization Program: [phone]
Stand Alone Forms: DC Instructions- Cath/EP Lab, DC Inst - Implanted Device
Referrals:
[facility]- [facility] [Provider Group] - 07/14/24 10:00 am (Incision check appointment)
Margarita Rhoades DO [Active] - 07/31/24 10:20 am
(You have an appointment with Dr. Rhoades's nurse practitioner[facility]. This is in addition to the appointment you have for a wound check on 07/14/2024. Please call the office with questions.
)
Prescriptions:
New
carvedilol 3.125 mg Tablet
3.125 mg PO BID Qty: 60 2RF
lorazepam 0.5 mg Tablet
0.5 mg PO HS PRN (Reason: Anxiety) Qty: 10 0RF
gabapentin 100 mg Capsule
100 mg PO TID Qty: 90 0RF
dapagliflozin propanediol 10 mg Tablet
10 mg PO DAILY Qty: 30 2RF
acetaminophen [Tylenol Extra Strength] 500 mg tablet
1,000 mg PO Q6H PRN (Reason: Pain) Qty: 30 0RF
fluoxetine [Prozac] 20 mg capsule
20 mg PO DAILY Qty: 30 0RF
Continued
pantoprazole 40 mg Tablet,Delayed Release (Dr/Ec)
40 mg PO DAILY
divalproex [Depakote ER] 500 mg Tablet Extended Release 24 Hr
500 mg PO BID
melatonin 10 mg Tablet
10 mg PO HSPRN PRN (Reason: insomnia)
Discontinued
fluoxetine 40 mg Capsule
40 mg PO DAILY
olanzapine 5 mg Tablet
5 mg PO DAILYPRN PRN (Reason: anxiety)
methylphenidate HCl 36 mg Tablet Extended Release 24hr
36 mg PO DAILY
methylphenidate HCl 10 mg Tablet
10 mg PO DAILY@1500
diphenhydramine HCl [Benadryl] 25 mg Capsule
25 mg PO DAILYPRN PRN (Reason: dizzyness)
Dramamine 25 mg Tablet,Chewable
25 mg PO DAILYPRN PRN (Reason: dizzyness)
Discharge Orders:
Discharge Patient (As Directed); Ordered 07/08/24
Ordered By: Arnel Carlton
Care Plan Goals
Care Plan Goals:
Problem: Readiness for enhanced knowledge related to diagnosis and treatment plan
Goal: Understand your diagnosis and treatment plan needs, including medications if applicable.
Instructions: Know your diagnosis, underlying causes and treatment plan options, including medications if applicable. Consult with your health care team to learn about your diagnosis and treatment plan, including medications if applicable.
Discharge Date and Time
Discharge Date/Time: 07/08/24 10:58
Print Language: TURKISH
--- NOTE | 2024-07-07 16:04 | W.PN.UPDATE ---
Update Note
Progress Note Update
Psychiatry would like to keep patient overnight.
No discharge .
[2024-07-07] MEDS: LOVENOX 40 MG SC (17:39)
--- NOTE | 2024-07-07 18:06 | W.PN.HOSP.TC ---
Today's Communication/Plan
-
Observe overnight for stabilization in mood s/p Ativan & prozac for increased anxiety. Will re-evaluate in the AM and reaffirm planning for discharge.
Assessment / Plan
Assessment / Plan
39 year old F with a PMHx of Vfib arrest, Long QTc Syndrome, polysubstance use disorder (Alcohol, Tobacco, Cannabis), Depression, Anxiety, PTSD, ADHD who presented to the ED with abdominal pain/N/V, dyselectrolytemia, QTC prolongation and V-Fib
arrest requiring defibrillation
##Vfib Arrest requiring Defibrillation
#History of QTc prolongation, likely secondary to Non-ischemic cardiomyopathy
#Hx of Vfib arrest/Torsades (2017)
- S/p defibrillation, Calcium gluconate, Magnesium Sulfate, 150mg Amiodarone resuscitation in the ED
Troponin peak of 3.740, trending down.
- (Echo from 2018 EF 60-65%; 2019 EF 55-60%). Echo in ED showed severely reduced LVSF w/ EF 25-30%, hypokinesis of the lateral and anterior segments, along with severe hypokinesis and severe hypokinesis of mid-anteroseptum, apical septum, inferior
and mid to distal inferolateral howell
- Cath: Prior cath from 2018 showed angiographically normal coronary arteries. Repeat showed no obstructive disease with Mildly elevated LVEDP at 18 mmHg.
- Recommend GDMT for non-ischemic cardiomyopathy & cardiovascular risk factors
- Lipid Panel (Total Chol. 210, Tg 107, LDL 134, VLDL 21, HDL 55). A1C% 5.2
- Started Farxiga as part of GDMT. Will hold on BBs and ARNI due to need for pressors/hypotension.
- ICD placed. Patient also to schedule wound check in 5-7d, w/ plans to up-titrate BB as outpatient with Material Handling Supervisor.
- Started on Coreg 3.125mg BID.
#Shock, likely cardiogenic
- Required Levophed for hypotension, successfully weaned on 07/05
- Now on Midodrine TID, pressures are stable
- Orthostatic vitals (-) for orthostasis
#Hypokalemia (resolved) - K stable
#Hypomagnesemia (resolved) - Stable
#Nausea/Vomiting (resolved)
#Abdominal Pain (resolved)
- CT-Abdomen from 1 day ago (+) for acute gastroenteritis & acute esophagitis
- c/w home pantoprazole. C/w Pepcid for gastritis/esophagitis
#Cannabis Use
- UD (+) for Cannibis and opioids (received morphine in the ED).
- Discussed cessation and the relationship b/t cannabis and nausea/vomiting
#Depression
#Anxiety
#PTSD
- Holding home dose Olanzapine
- C/w home Depakote 500mg BID
- C/w Ativan 0.5mg prn for anxiety
- Will give gabapentin 100mg TID for anxiety as it won't prolong QTc...
- Psych recommendations; discussed with cardiology and patient is OK to take Prozac again. Will keep holding Olanzapine. Patient also OK to continued with methylphenidate in the short term, but will follow up with cardiology moving forward in the
setting of unspecified cardiomyopathy.
- Psych recommendation for patient to remain in the hospital one more day for increased anxiety symptoms and dispo planning
#ADHD- Continue holding inpatient; OK to restart Methylphenidate on discharge
#GERD - c/w home pantoprazole (as above) & add Pepcid for gastritis/esophagitis
#Dispo:
ICU
Diet - Regular diet
DVT PPx: SCDs
Status: Full Code
Anticipated Discharge: Within 24 hours
Subjective/Interval History
-
Seen in the AM. Patient reports some pain at the surgical site of ICD placement. Her lightheadedness has resolved. She has no other acute complaints at this time and was calm and agreeable during our encounter.
Objective Data
-
Vital Signs:
Vital Signs
Temp Pulse Resp BP Pulse Ox
97.8 F 70 16 109/73 96
07/07/24 15:58 07/07/24 17:00 07/07/24 15:58 07/07/24 17:38 07/07/24 15:58
I&O
07/06/24 07/07/24 07/08/24
06:59 06:59 06:59
Intake Total 1375.2 / 1375.2 480 / 480
Balance 1375.2 / 1375.2 480 / 480
Review of Systems
-
History Source: Patient
All other systems: Reviewed and negative
Physical Exam
-
General: Well Developed, Well Nourished, No Apparent Distress and Comfortable
HEENT: Normocephalic, Atraumatic, Moist Mucous Membranes, Anicteric, [place] Conjunctivae and PERRLA
Respiratory: Clear to Auscultation
Cardiac: Regular Rhythm and S1/S2
Breast: Deferred by me
GI: Soft, Nontender, Nondistended and Normal Bowel Sounds
Musculoskeletal: No Clubbing, No Cyanosis and No Edema
Neuro: Awake, Alert and Oriented
Psych: Calm
[2024-07-07] MEDS: PEPCID 40 MG PO (21:05)
[2024-07-07] MEDS: COREG PO (21:09)
[2024-07-07] MEDS: MELATONIN 10 MG PO (23:05)
[2024-07-08 03:40] VITALS: BP 76/48
[2024-07-08 03:41] VITALS: BP 75/51
[2024-07-08 03:44] VITALS: BMI 22.7
[2024-07-08 03:46] VITALS: BP 98/72
[2024-07-08] MEDS: ROXICODONE 5 MG PO ×2 (03:50→09:49)
[2024-07-08 04:22] VITALS: BP 95/69
--- NOTE | 2024-07-08 06:05 | PTCARENOTE ---
Pt NSR on monitor. C/O surgical site pain 05/03. Pain meds given and effective. SBP in 80-90s pt denies dizziness or lightheadedness. Safety measures in place
[2024-07-08 07:32] VITALS: BP 97/60
[2024-07-08] MEDS: DEPAKOTE ER (24 HR RELEASE) 500 MG PO (09:10)
[2024-07-08] MEDS: MAGNESIUM OXIDE 500 MG PO (09:10)
[2024-07-08] MEDS: COREG 3.125 MG PO (09:10)
[2024-07-08] MEDS: CARAFATE 1 GRAM PO (09:10)
[2024-07-08] MEDS: ProAmatine 2.5 MG PO (09:10)
[2024-07-08] MEDS: FARXIGA 10 MG PO (09:10)
[2024-07-08] MEDS: NEURONTIN 100 MG PO (09:10)
[2024-07-08] MEDS: PROTONIX 40 MG PO (09:10)
--- NOTE | 2024-07-08 09:27 | W.PN.UPDATE ---
Update Note
Progress Note Update
I saw and evaluated the patient. I reviewed the resident�s note and agree with findings and plan as documented in the resident�s note.
Patient resting comfortably in bed.
Continues to have some left upper arm/chest pain.
Telemetry reviewed and no arrhythmia.
1. Cardiac arrest -V-fib
Required x1 defibrillator shock, no CPR
Acute systolic heart failure
Nonischemic cardiomyopathy
-Patient underwent left heart catheterization showing nonobstructive coronary disease on 07/05
-Echocardiogram reviewed showing ejection fraction of 25 to 30%, hypokinesis of the anterior lateral segments, severe hypokinesis of mid taz septum, apical septum inferior and mid to distal inferolateral howell.
-Patient is s/p ICD placement on 07/06/2024
-Patient also on methylphenidate for many years, which is reported to cause a nonischemic cardiomyopathy/heart failure/cardiac arrhythmia due to increased sympathetic drive, patient advised to avoid this medication moving forward.
-Currently patient maximized on GDMT, hypotension is main limiting factor.
-Patient would have limited activity for short time, work/disability paper has been filled by cardiology
-Patient will require a follow-up echocardiogram in 6 weeks with cardiology office.
2. Cardiogenic shock
- resolved
3. Prolonged QTc
-Avoid any QTc prolonging medication moving forward
4. Anxiety/Depression
ADD
-As mentioned above discussed with patient to stop taking methylphenidate moving forward as can cause nonischemic cardiomyopathy/heart failure
-Patient was ordered by psychiatry due to ongoing symptoms of stress/anxiety
-Patient been discharged on regimen of Prozac and Ativan as needed
-Patient to follow-up with psychiatry outpatient basis for further adjustment of medication
5. Nausea/vomiting
-Question of possible gastritis. Maintained on pantoprazole
-Potential differential of marijuana use is also a possibility
-Patient have not been drinking alcohol for last 1 year,
Active smoker-cessation counseling
Marijuana use
History of pancreatitis
DVT prophylaxis-Lovenox
Full code
More than 30 minutes spent in discharge including
Final examination of the patient
Summarizing hospital stay
Instructions for continuing care to all relevant caregivers
Preparation of discharge records, prescriptions, and referral forms
Total time spent (in minutes): 38 mins
--- NOTE | 2024-07-08 10:27 | W.PN.CARDCBS ---
Addendum entered and electronically signed by Beto Callahan DO 07/08/24 10:44:
I saw and examined the patient.
The Actuarial Director's note was reviewed and I agree with the note.
Comment:
Plan:
Stable for d/c from cardiac standpoint
Outpt follow up arranged
Check BMP and Mg one week
Cont to avoid QT prolonging drugs
Outpt cardiac follow up arranged
Discussed with primary service.
Original Note:
Today's Communication / Plan
-
Stable for discharge from cardiac standpoint
Should have basic metabolic panel and magnesium level in 1 week
Outpatient cardiology follow-up has been arranged
Impression / Plan
-
PCP: None locally
Previous PCP from [place]: Phill Garg,
Previous plant wire chief: Bety Aponte MD [facility] [phone]
Impression:
VF arrest
witnessed in [facility] with immediate defibrillation and zoroastrianism of SR 07/03/24
Nonischemic CM
Long QT
s/p DC ICD 07/06/24 ([employer])
Hypomagnesemia
Hypokalemia
elevated troponin
Metabolic acidosis
Abdominal pain with nausea and vomiting
pancreatitis
h/o severe ETOH use disorder
Marijuana vaper
Active smoker
ADHD
hypotension
Echo 07/03/24: Urgent bedside study in [facility], preliminary report, EF 30% with WMA, no significant valve disease
Cardiac catheterization 07/05/2024: No obstructive CAD (minimal luminal irregularies in circumflex), LVEDP 18 mmHg
Plan:
-s/p VF arrest in ER 07/03/24, rec'd 1 shock and returned to NSR, occurred in setting of long QT, Zofran use, low bicarb and magnesium. Echo 07/03/24 EF 30%. cardiac cath 07/05/24 no obstructive CAD.
-s/p ICD 07/06/24 (2nd Vfib arrest, h/o long QT and new cardiomyopathy).
-advance GDMT as tolerated. She was started on Farxiga. Given long QT-Coreg 3.125 mg bid started 07/06/24. PM doses have been held due to low BP.
-Remains on Midodrine
-QT remains prolonged, EKG personally reviewed 07/06/24 NSR, diffuse T wave abnormalities, QTc 555 msec-trying to start low dose beta karla
-avoid all QT prolonging agents
-keep K >4, Mag >2. Will need to be followed as outpt. Should have BMP and mag in 1 week
-telemetry personally reviewed: NSR 80s-90s. No VT.
-UDS positive for marijuana (pt admits to vaping marijuana) and opiates (had rec'd morphine in ER). ETOH level was negative 06/30/24.
-discharge today with outpt f/u with [facility] Cardiology. Has apptmt for wound check 07/14/24 [address] am[address] Dr Rhoades ferry terminal supervisor and appt scheduled
-paperwork filled out for her to return to work on 07/11/24. 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
-reviewed activity restrictions s/p new ICD. She is left handed and device is on left. She was advised to wear immobilizer while sleeping for one week.
VF arrest in the ER. Patient from [facility], but living locally while going through a divorce. Patient with h/o ETOH use disorder and previously treated for pancreatitis at [facility] in [place], [place]. Patient was admitted to
07/2023 with pancreatitis and admitted to ETOH relapses, but denied drinking at that time and was actively participating in an ETOH rehab program. [facility] with abdominal pain and left the ER AMA due to the wait and instead went
to [facility] and reports she was admitted there with pancreatitis and that no cause was found although [facility] did recommend that she see a general surgeon as an outpatient for possible appendectomy, but nothing was urgent. Patient then came back to [facility]
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
too much work. Patient called 911 today with ongoing N/V and was given Zofran IV in the ambulance. ECG showed long QT and labs showed low bicarb and magnesium then as magnesium rider was started patient had VF arrest that was teated with immediate
shock at 200 j with zoroastrianism of SR. Patient has received 2 amps of bicarb, amiodarone 150 mg IV x1 bolus, magnesium 1 gram IV x1, KCl 40 meq IV x1 and Lopressor 5 mg IV x1. Urgent bedside echo showed EF reduced at 30% with WMA. Patient denies
chest pain and denies h/o CAD. Patient initially denied active or history of ETOH use in the ER when asked by cardiology, but patient denied repeatedly until finally admitting that she has a h/o ETOH abuse however continues to deny active ETOH use.
-Urgent bedside cardiology evaluation and echo as noted above.
Progress Note - Shot Fireman
Subjective
Date of Service: July 08, 2024
Patient seen and examined. Patient walking around the room without cardiac complaints.
Objective
Labs:
07/07/24 03:32
07/07/24 03:32
Labs
Hgb 13.2 g/dL (12.0-16.0) 07/07/24 03:32
Hct 38.2 % (37.0-47.0) 07/07/24 03:32
Plt Count 151 10^3/uL (130-400) 07/07/24 03:32
PT 15.4 Sec (11.4-14.6) H 07/03/24 15:10
INR 1.24 07/03/24 15:10
APTT 22.0 Sec (23.4-35.0) L 07/03/24 15:10
Sodium 138 mmol/L (135-145) 07/07/24 03:32
Potassium 4.0 mmol/L (3.5-5.1) 07/07/24 03:32
BUN 10 mg/dl (7-17) 07/07/24 03:32
Creatinine 0.6 mg/dL (0.6-1.0) 07/07/24 03:32
Glucose 102 mg/dl (70-99) H 07/07/24 03:32
Vital Signs and I&O:
Vital Signs
Temp Pulse Resp BP Pulse Ox
98.2 F 94 18 97/60 98
07/08/24 07:30 07/08/24 10:00 07/08/24 07:30 07/08/24 09:10 07/08/24 07:30
Vital Signs
Temp Pulse Resp BP Pulse Ox
98.2 F 94 18 97/60 98
07/08/24 07:30 07/08/24 10:00 07/08/24 07:30 07/08/24 09:10 07/08/24 07:30
Intake & Output
07/06/24 07/07/24 07/08/24 07/09/24
06:59 06:59 06:59 06:59
Intake Total 1375.2 / 1375.2 680 / 680 480 / 480
Balance 1375.2 / 1375.2 680 / 680 480 / 480
Physical Exam
Physical Exam
GEN: No distress, awake, Ox3, walking around room
HEENT: supple, anicteric, mmm
LUNGS: CTA, no wheezes/rales
CV: Reg, S1/S2, no murmur, rub or gallop
ABD: soft, BS+, NT/ND
EXT: No edema
NEURO: Gross non-focal
SKIN: LACW ICD site - [employer] drsg remains in place. No hematoma
--- NOTE | 2024-07-08 10:56 | PTCARENOTE ---
d/c instructions read to pt and pt verbalized understanding. pt educated on [facility] site restrictions and pt verbalized understanding. pt left via wheelchair with staff member with belongings including paperwork for work and blood work script. iv and
tele removed.
--- NOTE | 2024-07-08 18:22 | W.PN.HOSP.TC ---
Today's Communication/Plan
-
d/c home
Assessment / Plan
Assessment / Plan
1. Cardiac arrest -V-fib
Required x1 defibrillator shock, no CPR
Acute systolic heart failure
Nonischemic cardiomyopathy
-Patient underwent left heart catheterization showing nonobstructive coronary disease on 07/05
-Echocardiogram reviewed showing ejection fraction of 25 to 30%, hypokinesis of the anterior lateral segments, severe hypokinesis of mid taz septum, apical septum inferior and mid to distal inferolateral howell.
-Patient is s/p ICD placement on 07/06/2024
-Patient also on methylphenidate for many years, which is reported to cause a nonischemic cardiomyopathy/heart failure/cardiac arrhythmia due to increased sympathetic drive, patient advised to avoid this medication moving forward.
-Currently patient maximized on GDMT, hypotension is main limiting factor.
-Patient would have limited activity for short time, work/disability paper has been filled by cardiology
-Patient will require a follow-up echocardiogram in 6 weeks with cardiology office.
2. Cardiogenic shock
- resolved
3. Prolonged QTc
-Avoid any QTc prolonging medication moving forward
4. Anxiety/Depression
ADD
-As mentioned above discussed with patient to stop taking methylphenidate moving forward as can cause nonischemic cardiomyopathy/heart failure
-Patient was ordered by psychiatry due to ongoing symptoms of stress/anxiety
-Patient been discharged on regimen of Prozac and Ativan as needed
-Patient to follow-up with psychiatry outpatient basis for further adjustment of medication
5. Nausea/vomiting
-Question of possible gastritis. Maintained on pantoprazole
-Potential differential of marijuana use is also a possibility
-Patient have not been drinking alcohol for last 1 year,
Active smoker-cessation counseling
Marijuana use
History of pancreatitis
DVT prophylaxis-Lovenox
Full code
More than 30 minutes spent in discharge including
Final examination of the patient
Summarizing hospital stay
Instructions for continuing care to all relevant caregivers
Preparation of discharge records, prescriptions, and referral forms
Total time spent (in minutes): 38 mins
Anticipated Discharge: Today
Subjective/Interval History
-
Date of Service: July 08, 2024
no tele events overnight
clinically feeling better
Objective Data
-
Vital Signs:
Vital Signs
Temp Pulse Resp BP Pulse Ox
98.2 F 94 18 97/60 98
07/08/24 07:30 07/08/24 10:00 07/08/24 07:30 07/08/24 09:10 07/08/24 07:30
I&O
07/07/24 07/08/24 07/09/24
06:59 06:59 06:59
Intake Total 680 / 680 480 / 480
Balance 680 / 680 480 / 480
Review of Systems
-
Respiratory: Reports No Symptoms
Cardiac: Reports No Symptoms
Abdomen/GI: Reports No Symptoms
Physical Exam
-
General: Comfortable
HEENT: Negative Oxygen
Respiratory: Clear to Auscultation
Cardiac: Regular Rhythm and S1/S2
GI: Soft, Nontender, Nondistended and Normal Bowel Sounds
Musculoskeletal: No Clubbing, No Cyanosis and No Edema
Neuro: Awake, Alert and Oriented
Psych: Calm
== END 2024-07-08 10:58 | disposition home or self-care (01) | DRG 275 ==
LOC: IVU 15:47
PROVIDERS: Internal Medicine; Internal Medicine Cardiovascular Disease; Internal Medicine Interventional Cardiology; Nurse Practitioner Adult Health; Nurse Practitioner Primary Care; Physician Assistant Medical; Psychiatry & Neurology Psychiatry; ADMITTING PHYSICIAN Hospitalist; ATTENDING PHYSICIAN Hospitalist; CONSULT PHYSICIAN Internal Medicine Cardiovascular Disease; CONSULT PHYSICIAN Internal Medicine Critical Care Medicine; CONSULT PHYSICIAN Psychiatry & Neurology Psychiatry; EMERGENCY PHYSICIAN Student in an Organized Health Care Education/Training Program
PROC: 02HV33Z Insertion of Infusion Device into Superior Vena Cava, Percutaneous Approach (ICD-10-PCS; 2024-07-03)
PROC: 5A2204Z Restoration of Cardiac Rhythm, Single (ICD-10-PCS; 2024-07-03)
PROC: 4A023N7 Measurement of Cardiac Sampling and Pressure, Left Heart, Percutaneous Approach (ICD-10-PCS; 2024-07-05)
PROC: B211YZZ Fluoroscopy of Multiple Coronary Arteries using Other Contrast (ICD-10-PCS; 2024-07-05)
PROC: 0JH608Z Insertion of Defibrillator Generator into Chest Subcutaneous Tissue and Fascia, Open Approach (ICD-10-PCS; 2024-07-06)
PROC: 02HK3KZ Insertion of Defibrillator Lead into Right Ventricle, Percutaneous Approach (ICD-10-PCS; 2024-07-06)
PROC: 02H63KZ Insertion of Defibrillator Lead into Right Atrium, Percutaneous Approach (ICD-10-PCS; 2024-07-06)
DX: I49.01 Ventricular fibrillation (principal); I50.21 Acute systolic (congestive) heart failure; E87.20 Acidosis, unspecified; K86.1 Other chronic pancreatitis; I46.2 Cardiac arrest due to underlying cardiac condition; I42.8 Other cardiomyopathies; I45.81 Long QT syndrome; K21.00 Gastro-esophageal reflux disease with esophagitis, without bleeding; I11.0 Hypertensive heart disease with heart failure; F43.10 Post-traumatic stress disorder, unspecified; F41.9 Anxiety disorder, unspecified; F32.A Depression, unspecified; F90.9 Attention-deficit hyperactivity disorder, unspecified type; E87.6 Hypokalemia; K52.9 Noninfective gastroenteritis and colitis, unspecified; E83.42 Hypomagnesemia; E86.1 Hypovolemia; R73.9 Hyperglycemia, unspecified; I95.89 Other hypotension; T43.635A Adverse effect of methylphenidate, initial encounter; F12.90 Cannabis use, unspecified, uncomplicated; D64.9 Anemia, unspecified; Z63.5 Disruption of family by separation and divorce; Z87.891 Personal history of nicotine dependence; Z86.74 Personal history of sudden cardiac arrest; Z79.899 Other long term (current) drug therapy; Z91.040 Latex allergy status; Z88.5 Allergy status to narcotic agent; Z86.19 Personal history of other infectious and parasitic diseases; Z82.49 Family history of ischemic heart disease and other diseases of the circulatory system
CPT/HCPCS: 33249; 71045; 80048; 80053; 80061; 80164; 80306; 80307; 82962; 83036; 83690; 83735; 84100; 84484; 84703; 85025; 85027; 85610; 85730; 93005; 93306; 93458; 96361; 96372; 96374; 96375; 99152; 99153; 99291; C1721; C1777; C1892; C1894; C1898; Q9967